=== PATIENT | male | born 1995 | race Caucasian/White ===

== ENCOUNTER 2021-03-15 16:54 | Emergency (ER) | payer SELFPAY ==
[2021-03-15] VITALS (19 sets, daily range): BP systolic 116–151; BP diastolic 59–81; PULSE 55–87; RESP 10–28; TEMP 36.7; O2SAT 95–98
--- NOTE | 2021-03-15 16:45 | RT.EKG_ITS ---
APPROVED REPORT Exam: Resting ECG Reason for Exam: chest pain Patient Location: E HR:69 bpm ECG Measurements Heart Rate 69 AXIS ND [id number] P [id number] QRSd 106 QRS 95 QT 389 T 10 QTc 418 Conclusion Atrial fibrillation...V-rate 59- 61, irreg A-activity Ventricular bigeminy...bigeminy string>4 w/ V complexes. Sinus. PVCs. No STEMI. I have reviewed and interpreted ECG and agree with software generated interpretation.
--- NOTE | 2021-03-15 17:15 | DI.RAD_ITS ---
Exam(s) XR CHEST 2V PA LATERAL EXAM: XR CHEST 2V PA LATERAL CLINICAL HISTORY: chest pain, arrythmia TECHNIQUE: 2D digital imaging was performed. COMPARISON: No exams were available for comparison FINDINGS: MEDIASTINUM: Normal. HEART: Normal. PULMONARY VASCULATURE: Normal. LUNGS: Clear. PLEURAL SPACE: No pleural effusion or pneumothorax. BONE:Unremarkable for age. IMPRESSION: No acute abnormality. DATA REPOSITORY: RADIATION DOSE DELIVERED:
--- NOTE | 2021-03-15 17:27 | ED.GENADUL_ITS ---
Discharge Plan Disposition Patient Disposition: HOME Condition: Stable Discharge Details Clinical Impression: Frequent PVCs, Chest pain Primary Care Provider: Unknown,Unknown ED Provider: Ai Alcantara Home Meds and New Rx's Prescriptions: No Action No Known Home Meds RF: 0 Discharge Instructions Instructions: Chest Pain (ED), Heart Palpitations (ED) Additional Instructions: Wear the Holter monitor for the next 48 hours as directed. Consider taking a chewable baby aspirin daily. At this time the cardiac work-up is largely within normal limits. However it is concerning because you are having some frequent premature ventricular contractions. Potassium was slightly low eat some bananas over the next few days or take a potassium supplement. We will place you on a list for follow-up with cardiology. You may call them to make an appointment as well. I will also order you an outpatient stress test. Follow up with primary care provider in 3-5 days. Return to ED sooner if any worsening chest pain, near fainting spells, or concerns. Increase oral fluids. Referrals: Isis Rain MD [ [facility] STAFF PHYSICIAN] - 1 week (Palpitations, chest pain,Holter monitor) Medical Decision Making EKG was reviewed by She Lara DO ER attending, frequent PVCs no old for review please see your official report review. 26-year-old male presents to the ER chief complaint of palpitations, sharp chest pains which are intermittent and near syncope. Patient reports that this has happened to him within the last 6 months, he has never been evaluated by cardiology. Reports this morning he began with substernal chest pain which progressively got worse describes it as sharp and gurgling he reports that it only lasts for split-second and goes away. He denies any chest pain on my initial exam. Initial rhythm is occasional bigeminy with frequent PVCs at a rate of 81-79. Blood pressure is within normal limits. He also incidentally has a urticarial raised red rash to his back which he reports is pruritic. He reports that that has been there for years. He denies smoking, he report family history of heart disease on his grandfather's side. No swelling in his lower extremities denies any intolerance to exercise. Denies any nausea vomiting diarrhea trouble urinating or any other associated symptoms. Cardiac work-up ordered including serial troponins, chest x-ray, Lyme and tick panel due to rash. 324 mg chewable baby aspirin given. Initial troponin within normal limit, CBC shows no leukocytosis, potassium is 3.4 glucose 140 bilirubin 1.5, 1827: TSH added on, urine drug screen added on, Holter monitor ordered. Chest x-ray is pending at this time. Urine drug screen negative, TSH within normal limits, Patient placed on care management list for cardiology follow-up, PCP establishment. Instructed on strict return instructions, verbalized understanding. HPI General Mode of arrival: ambulatory . Date/Time Provider Initiated Documentation: 03/15/21 17:24 . Limitations to Documentation: no limitations . Information obtained by: patient, RN notes reviewed and old records reviewed . HPI Narrative: 26-year-old male presents to the ER chief complaint of palpitations, sharp chest pains which are intermittent and near syncope. Patient reports that this has happened to him within the last 6 months, he has never been evaluated by cardiology. Reports this morning he began with substernal chest pain which progressively got worse describes it as sharp and gurgling he reports that it only lasts for split-second and goes away. He denies any chest pain on my initial exam. Initial rhythm is occasional bigeminy with frequent PVCs at a rate of 81-79. Blood pressure is within normal limits. He also incidentally has a urticarial raised red rash to his back which he reports is pruritic. He reports that that has been there for years. He denies smoking, he report family history of heart disease on his grandfather's side. No swelling in his lower extremities denies any intolerance to exercise. Denies any nausea vomiting diarrhea trouble urinating or any other associated symptoms. Related Data Home Medications Medication Instructions Recorded Confirmed Unknown [No Known Home Meds] 03/15/21 03/15/21 Allergies Allergy/AdvReac Type Severity Reaction Status Date / Time No Known Allergies Allergy Unverified 03/15/21 17:04 General Stated Complaint: Chest Pain URIEL: 2 Review of Systems All systems reviewed & are unremarkable except as noted in HPI and below Constitutional Constitutional: Reports as per HPI Cardiovascular Cardiovascular: Reports as per HPI, Denies acrocyanosis, Reports chest pain, Denies chest pain with activity, Denies edema, Reports irregular heart rhythm, Denies leg edema and Denies radiating jaw, neck or arm pain Gastrointestinal Gastrointestinal: Denies abdominal pain, Denies diarrhea, Denies nausea and Denies vomiting Genitourinary Genitourinary: Denies difficulty urinating [facility] Social History Smoking/Tobacco Use Status: Never Smoking risk assessment performed?: Yes Alcohol Intake: current Alcohol Intake frequency: holidays/special occasions only Drug use: Never Substance use type: does not use Do you feel safe at home: Yes Do you feel safe in your relationship?: Yes Exam Narrative Exam Narrative: Constitutional: Alert and oriented x3. Appears stated age. Normal body habitus. Head: Normocephalic, no trauma. Eyes: Pupils PERRLA, Red reflex noted, EOM's intact. Eyelids symmetrical without lesions, discharge, or swelling. ENT: Bilateral TM's WNL, External ear normal to inspection, no mastoid TTP, swelling, or erythema, Nasal turbinates WNL, no nasal discharge. Normal dentition, Posterior pharynx WNL, no exudate. Chest: Frequent PVCs, Irregular, Normal S1, S2, distal pulses intact. No bilateral lower extremity edema. Resp: Lungs clear to auscultation bilaterally, no wheezes, rales, or rhonchi. Musculoskeletal: Normal gait, 5/5 strength to all four extremities. Skin: Large patch urticarial red raised rash to upper back reports has been there years, Capillary refill less than 2 sec. Neurologic: Cranial nerves II-XII intact. Alert and oriented x 3. Hematologic/Lymphatic: No ecchymosis, no lymphadenopathy. Course Vital Signs Vital signs: Vital Signs Temperature 36.7 C 03/15/21 17:01 Pulse 70 03/15/21 17:01 Respiratory Rate 18 03/15/21 17:01 Blood Pressure 151/76 H 03/15/21 17:01 Pulse Oximetry 97 03/15/21 17:01 Temperature 36.7 C 03/15/21 17:01 Temperature Source Skin 03/15/21 17:01 Pulse 70 03/15/21 17:01 Respiratory Rate 18 03/15/21 17:01 Respiratory Effort Non-Labored 03/15/21 17:05 Respiratory Depth Normal 03/15/21 17:05 Respiratory Pattern Normal 03/15/21 17:05 Blood Pressure 151/76 H 03/15/21 17:01 Blood Pressure Position Supine 03/15/21 17:01 Pulse Oximetry 97 03/15/21 17:01 Oxygen Delivery Method Room Air 03/15/21 17:01 Oxygen Flow Rate 0 03/15/21 17:01 Pain Level 6 03/15/21 17:05
[2021-03-15 17:35] LABS: Abs Immature Grans 0.01 10^3/uL (0.0-0.06); Absolute Basophil Count 0.05 10^3/uL (0.0-0.2); Absolute Eosinophil Count 0.15 10^3/uL (0.0-0.7); Absolute Lymphocyte Count 2.61 10^3/uL (1.2-3.4); Absolute Monocyte Count 0.41 10^3/uL (0.1-0.8); Absolute Neutrophil Count 4.81 10^3/uL (1.2-6.7); Basophils % 0.6; Eosinophils % 1.9; HCT 46.4 % (40.0-50.0); HGB 15.9 g/dL (13.5-17.5); Immature Grans % 0.1; Lymphocytes % 32.5; MCH 28.6 pg (27.0-33.0); MCHC 34.3 % (32.0-36.0); MCV 83.5 fL (80-95); MPV 11.5 fL (8.0-11.0); Monocytes % 5.1; Neutrophils % 59.8; Nucleated RBC 0 %; Platelet Count 210 10^3/uL (130-400); RBC 5.56 10^6/uL (4.36-5.78); RDW 12.4 % (11.8-14.1); RDW-SD 37.5 fL; WBC 8.04 10^3/uL (4.4-10.8)
[2021-03-15 17:51] LABS: ALT 20 U/L (16-63); AST 21 U/L (15-37); Albumin 4.7 g/dL (3.4-5.0); Alkaline Phosphatase 111 U/L (46-116); Anion Gap 8.7 mmol/L (3-11); BUN 14 mg/dL (7-18); Bilirubin, Total 1.5 mg/dL (0.2-1.0); CO2 29.3 mmol/L (21.0-32.0); CREATININE 1.3 mg/dL (0.70-1.30); Calcium 9.2 mg/dL (8.5-10.1); Chloride 101 mmol/L (98-107); Glucose 140 mg/dL (74-106); Magnesium 2.1 mg/dL (1.8-2.4); Potassium 3.4 mmol/L (3.5-5.1); Sodium 139 mmol/L (136-145)
[2021-03-15 17:57] LABS: Troponin I < 0.05 ng/mL (<0.06)
--- NOTE | 2021-03-15 18:22 | NUR.NOTE ---
Nursing Note: REFERAL FAXED TO CARDIOLOGY FOR PVC FOLLOW UP 03/15/21
[2021-03-15 18:49] LABS: TSH 2.13 uIU/mL (0.36-3.74)
--- NOTE | 2021-03-15 18:49 | DI.VRAD_ITS ---
PROCEDURE INFORMATION: Exam: XR Chest Exam date and time: 03/15/2021 5:27 PM Age: 26 years old Clinical indication: Other: Chestpain, arrythmia TECHNIQUE: Imaging protocol: XR of the chest. Views: 2 views. COMPARISON: No relevant prior studies available. FINDINGS: Lungs: No mass. No consolidation. Pleural spaces: Unremarkable. No pleural effusion. No pneumothorax. Heart/Mediastinum: Unremarkable cardiomediastinal silhouette. No cardiomegaly. Bones/joints: Unremarkable. IMPRESSION: No evidence for acute cardiopulmonary disease. Dictated and Authenticated by: Pop Bloom MD. Ordering:RADHA Cloud MD
[2021-03-15 20:00] LABS: *AMPHETAMINES SCREEN URINE Negative (Negative); *BARBITURATES SCREEN URINE Negative (Negative); *BENZODIAZEPINES SCREEN URINE Negative (Negative); Cannabinoids THC Negative (Negative); Cocaine Screen,Urine Negative (Negative); METHADONE URINE SCREEN Negative (Negative); OPIATES URINE SCREEN Negative (Negative)
[2021-03-15 20:03] LABS: Tricyclic Antidepressants Negative (Negative)
--- NOTE | 2021-03-15 20:15 | RT.EKG_ITS ---
APPROVED REPORT Exam: Resting ECG Reason for Exam: chest pain Patient Location: E HR:87 bpm ECG Measurements Heart Rate 87 AXIS NC 155 P 57 QRSd 100 QRS 95 QT 385 T 4 QTc 463 Conclusion Sinus rhythm...normal P axis, V-rate 60- 99 Ventricular trigeminy...trigeminy string>6 w/ V complexes Borderline ST elevation, lateral leads...ST >0.06mV, I aVL V5 V6 I have reviewed and interpreted ECG and agree with software generated interpretation. There are no significant changes compared to prior EKG performed on 03/15/2021 at 17:04.
--- NOTE | 2021-03-15 20:20 | NUR.NOTE ---
Referral faxed to [facility] for chest pain, also a copy to Care Management to establish pcp clint for chest pain.Nursing Note:
[2021-03-15 20:44] LABS: Troponin I < 0.05 ng/mL (<0.06)
--- NOTE | 2021-03-16 12:48 | NUR.NOTE ---
Nursing Note: Patient called requesting a work note. CHRIS Nino did a handwritten work release. A copy has been put in the chart. Xiomy Pickett
[2021-03-17 20:22] LABS: Anaplasma phagocytophilum Negative (Negative); B. miyamotoi PCR Negative (Negative); Babesia divergens/MO-1 Negative (Negative); Babesia duncani Negative (Negative); Babesia microti Negative (Negative); Ehrlichia chaffeensis Negative (Negative); Ehrlichia ewingii/canis Negative (Negative); Ehrlichia muris eauclairensis Negative (Negative)
[2021-03-19 12:16] LABS: Lyme Ab w Rflx to Lyme Confirm Negative (Negative)
== END 2021-03-15 20:52 | disposition home or self-care (01) ==
PROVIDERS: Emergency Provider Registered Nurse Emergency
DX: I49.3 Ventricular premature depolarization (principal); R07.89 Other chest pain; R21 Rash and other nonspecific skin eruption
CPT/HCPCS: 36415; 80053; 80307; 87798; 93005; 99284; 71046; 83735; 84443; 84484; 85025; 86618; 93010; 93225; 99283

== ENCOUNTER 2021-03-15 18:37 | Outpatient (RCR) | payer SELFPAY ==
--- NOTE | 2021-03-15 18:45 | HOLTER_ITS ---
APPROVED REPORT Conclusion This is a 48-hour Holter monitor ordered for palpitations Predominant rhythm was sinus with an average heart rate of 77. Minimum was 50, maximum 160 There were very rare atrial premature beats. There was no supraventricular tachycardia, no atrial fi brillation, no pauses greater than 3 seconds, no high-grade AV block There were frequent ventricular ectopic beats, comprising 12% of total. Bigeminy and trigeminy were seen. Some PVCs were interpolated. There were rare ventricular couplets triplets and two runs of nonsustained ventricular tachycardia, t he longest of which was 5 beats in duration No patient symptoms were reported
== END 2021-04-01 23:59 | disposition home or self-care (01) ==
LOC: RT 18:37
PROVIDERS: Visit Provider Registered Nurse Emergency
DX: R00.2 Palpitations (principal)
CPT/HCPCS: 93225; 93226

== ENCOUNTER 2021-06-12 10:43 | Emergency (ER) | payer SELFPAY ==
--- NOTE | 2021-06-12 10:45 | RT.EKG_ITS ---
APPROVED REPORT Exam: Resting ECG Reason for Exam: sob Patient Location: E HR:73 bpm ECG Measurements Heart Rate 73 AXIS UT 144 P 47 QRSd 94 QRS 12 QT 387 T 4 QTc 427 Conclusion Sinus rhythm...normal P axis, V-rate 60- 99 Physician: Rate 73, intervals normal, sinus rhythm, no significant ST elevation or depression. No T wave inversions. No evidence of STEMI
[2021-06-12 10:59] VITALS: PULSE 58; RESP 22; TEMP 36.7; O2SAT 100
--- NOTE | 2021-06-12 11:00 | DI.CT_ITS ---
Exam(s) CT CHEST PE CTA EXAM: CT CHEST PE CTA CLINICAL HISTORY: covid +, syncope, CP, cant breathe. TECHNIQUE: Imaging Protocol: Axial CT angiography was performed with multi-slice acquisition and mu lti-planar and/or 3D reconstructions. CONTRAST MATERIAL: Intravenous: Omnipaque 350 Contrast volume:structured data in ml COMPARISON: CT CT BRAIN NECK CTA from 06/12/2021 FINDINGS: CT angiography of the chest was performed with intravenous infusion of 100 cc of Omnipaque 350. There is severe breathing artifact which prevents evaluation of lobar and more peripheral pulmonary v essels. There is no gross pulmonary embolus in the main pulmonary artery or right or left pulmonary arteries. The lungs are grossly clear but evaluation of the lungs is severely limited due to breathing motion p eriod. No pleural effusion. Tracheobronchial tree appears intact. Thoracic aorta is of normal diameter, no thoracic aortic aneurysm or dissection, major branch vessels appear intact. No mediastinal or hilar adenopathy. Images obtained through the upper abdomen show unremarkable appearance of the visualized portions of the liver, spleen, pancreas, adrenals, and kidneys. IMPRESSION: Very limited study, no gross pulmonary embolus in main pulmonary artery or right or left pulmonary ar teries.. RADIATION DOSE DELIVERED: 571.07mGy.cm Total DLP 571.07mGy.cm Total DLP 14.55mGy CTDIvol DATA REPOSITORY: All CT scans at this facility are submitted to the National Radiology Data Registry (NRDR) Dose Index Registry (DIR) with the [employer] ([employer]). RADIATION OPTIMIZATION: All CT scans at this facility use at least one of these dose optimization te chniques: automated exposure control; mA and/or kV adjustment per patient size (includes targeted exa ms where dose is matched to clinical indication); or iterative reconstruction.
--- NOTE | 2021-06-12 11:13 | ED.GENADUL_ITS ---
Discharge Plan Disposition Patient Disposition: HOME Condition: Good Discharge Details Clinical Impression: Hypophosphatemia, COVID-19 Primary Care Provider: Unknown,Unknown ED Provider: Wojciech Ladd Home Meds and New Rx's Prescriptions: New Phosphorous 250 mg tablet 1 tab PO BID Qty: 7 RF: 0 Discharge Instructions Instructions: Hypophosphatemia (ED), COVID-19 (Coronavirus Disease 2019) (ED) Additional Instructions: At this time your chest CAT scan and the CT scan of your head shows no evidence of significant abnormality. Your COVID test is positive, and your laboratory work-up is reassuring. Your phosphate levels are low. Your magnesium level is slightly low. We have replaced your magnesium, but you will still require phosphate supplementation for the next few days. The prescription has been given to you, please fill this and take this as directed. Please contact your primary provider to have your phosphate levels rechecked in the next 36 to 48 hours. Please use the pulse oximeter that we have given you, monitor your oxygen levels. If your oxygen dips below 90 for greater then 5 minutes on more than 1 finger please return for reassessment. If you notice any worsening of your symptoms, or any new symptoms such as vomiting, diarrhea, fever, chills, shortness of breath, chest pain, numbness, weakness, or fainting , please return immediately to the emergency department for reevaluation. Please follow up with your primary care provider as soon as possible for reassessment and reevaluation. As always, it was a pleasure participating in your medical care today. Discharge Data Discharge Date/Time-TO BE ENTERED AT DEPARTURE: 06/12/21 15:57 Medical Decision Making 26-year-old male with no significant past medical history except for frequent PVCs in the past presents today for evaluation of feeling like he cannot breathe, shortness of breath and fatigue. Patient tested positive for COVID 4 days ago on Friday. He has not began the day before on Friday. Admits to a mild cold, cough, but then for the last 24 to 48 hours he felt like he could not breathe at all. He feels that he is dying for oxygen, and unable to get a breath. He admits to chest achiness and pain in the center of his chest. He denies any hemoptysis. He denies any history of blood clots. Patient also admits to notable lightheadedness that has been occurring for the last day and a half. He is states that he feels like he is about to pass out all the time. He denies any syncope or trauma to his head though. He denies any vomiting or diarrhea. No history of asthma. He does not smoke. 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 No other complaints at this time. No other modifying factors Physical exam is notably unremarkable. Vital signs demonstrate normal heart rate normal, normal oxygenation. On exam the patient looks very concerned, but does not show any cyanosis or other signs of significant distress. Differential includes COVID-pneumonia/pneumonitis, myocarditis, PE. Additionally with the patient's syncopal episodes/near syncopal episodes they do worry about an acute intracranial etiology. We will evaluate for these concerning components, monitor closely and reassess 3:[address] scans are both returned negative for acute process. No significant abnormality. Laboratory work-up is negative aside for evidence of hypophosphatemia. Magnesium is also slightly low. Troponin normal, EKG benign aside for the PVCs. 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 Thyroid function normal. proBNP normal suggest no signs of heart strain. COVID test is positive patient states he feels much better on reassessment would like to go home.. We did give supplemental magnesium and he tolerated this well. We gave oral phosphate, and did give the patient the option of admission, but he is declined and would rather follow-up outpatient. Will give prescription for continued phosphate supplementation at home. We gave pulse oximeter for continued monitoring at home if his is worsened. Recommend close follow-up with his PCP for reevaluation of phosphate levels on an outpatient basis. Discussed concerning red flags for which to return. Patient stable for discharge. No evidence of respiratory distress at this point, no other significant abnormality. I have extensively reviewed the treatment plan and discharge instructions with the patient. I have addressed all patient concerns at this time. The patient was made aware of what symptoms to monitor for that would warrant a return to the emergency department. Discussed the plan with the patient, they demonstrate verbal understanding and agreement with our assessment and plan at this time. The documentation in this chart was dictated using [employer] dictation software. Please excuse any dictation errors. EKG 10: 59 Rate 73, intervals normal, sinus rhythm, no significant ST elevation or depression. No T wave inversions. No evidence of STEMI FINDINGS: CT angiography of the cervical cranial region was performed according to the usual protocol with intravenous infusion of 100 cc of Omnipaque 350.. Initial noncontrast scanning of the head is unremarkable. Visualized lung apices are clear. Visualized portions of thoracic aorta and pulmonary arterial circulation are unremarkable. There is no evidence of a cervical mass or adenopathy. The tracheal laryngeal structures appear intact. The common, internal, and external carotid arteries are within normal limits in the cervical region with no evidence of aneurysm, stenosis, or dissection. The vertebral arteries are unremarkable in appearance in the cervical region with no evidence of aneurysm, stenosis, or dissection. Intracranial portions of the internal carotid arteries appear normal with no evidence of aneurysm, stenosis, or dissection. Intracranial vertebral arteries and basilar artery appear normal with no evidence of aneurysm, stenosis or dissection. No aneurysm identified in the region of the [id number]. The anterior, middle, and posterior cerebral arteries and major branches appear intact with no evidence of aneurysm, stenosis, or dissection. The planned 5 minutes delayed images were not obtained, however the patient returned within approximately 30 minutes for delayed whole brain scanning and there is no evidence of a mass lesion or enhancing lesion on these images period.. IMPRESSION: Negative CT angiography of the cervical cranial region. FINDINGS: CT angiography of the chest was performed with intravenous infusion of 100 cc of Omnipaque 350. There is severe breathing artifact which prevents evaluation of lobar and more peripheral pulmonary vessels. There is no gross pulmonary embolus in the main pulmonary artery or right or left pulmonary arteries. The lungs are grossly clear but evaluation of the lungs is severely limited due to breathing motion period. No pleural effusion. Tracheobronchial tree appears intact. Thoracic aorta is of normal diameter, no thoracic aortic aneurysm or dissection, major branch vessels appear intact. No mediastinal or hilar adenopathy. Images obtained through the upper abdomen show unremarkable appearance of the visualized portions of the liver, spleen, pancreas, adrenals, and kidneys. IMPRESSION: Very limited study, no gross pulmonary embolus in main pulmonary artery or right or left pulmonary arteries.. HPI General Date/Time Provider Initiated Documentation: 06/12/21 10:44 . HPI Narrative: 26-year-old male with no significant past medical history except for frequent PVCs in the past presents today for evaluation of feeling like he cannot breathe, shortness of breath and fatigue. Patient tested positive for COVID 4 days ago on Friday. He has not began the day before on Friday. Admits to a mild cold, cough, but then for the last 24 to 48 hours he felt like he could not breathe at all. He feels that he is dying for oxygen, and unable to get a breath. He admits to chest achiness and pain in the center of his chest. He denies any hemoptysis. He denies any history of blood clots. Patient also admits to notable lightheadedness that has been occurring for the last day and a half. He is states that he feels like he is about to pass out all the time. He denies any syncope or trauma to his head though. He denies any vomiting or diarrhea. No history of asthma. He does not smoke. 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 No other complaints at this time. No other modifying factors Related Data Home Medications Medication Instructions Recorded Confirmed sod phos di, mono-K phos mono 1 tab PO BID #7 tab 06/12/21 [Phosphorous] Previous Rx's Medication Instructions Recorded sod phos di, mono-K phos mono 1 tab PO BID #7 tab 06/12/21 [Phosphorous] Allergies Allergy/AdvReac Type Severity Reaction Status Date / Time No Known Allergies Allergy Unverified 06/12/21 11:02 General Stated Complaint: RespSymp URIEL: 2 Review of Systems All systems reviewed & are unremarkable except as noted in HPI and below PFSH All Active Problems (Updated 06/12/21 @ 15:38 by Wojciech Ladd DO) Hypophosphatemia (Acute) COVID-19 (Acute) Chronic diarrhea (Acute) Lightheadedness (Acute) Frequent PVCs (Acute) Chest pain (Acute) Social History Smoking/Tobacco Use Status: Never Smoking risk assessment performed?: Yes Alcohol Intake: current Alcohol Intake frequency: holidays/special occasions only Drug use: Never Substance use type: does not use Do you feel safe at home: Yes Do you feel safe in your relationship?: Yes Exam Narrative Exam Narrative: 1.Const: Well-nourished, Well-developed, appearing stated age 2.Eyes: PERRL, no conjunctival injection, and symmetrical lids. 3.ENT: Atraumatic external nose and ears. Moist MM. Neck: Symmetric, trachea midline, No thyromegaly. 4.CVS: +S1/S2, No murmurs or gallops. Peripheral pulses 2+ and equal in all extremities. Brisk capillary refill in all extremities. 5.RESP: Unlabored respiratory effort. Clear to auscultation bilaterally. No wheezes rales or rhonchi 6.GI: Soft, Nontender/Nondistended, No hepatosplenomegaly. No guarding or rebound. 7.MSK: Normocephalic/Atraumatic, Extremities w/o deformity or ttp No cyanosis or clubbing, Normal movement of all extremities 8.Skin: Warm, Dry. No rashes or lesions. 9.Neuro: size marker II-XII grossly intact. Sensation grossly intact, no focal neurologic deficits. 10.Psych: (AAO) x3. Appropriate mood and affect Course Vital Signs Vital signs: Vital Signs Temperature 36.7 C 06/12/21 10:59 Pulse 58 L 06/12/21 10:59 Respiratory Rate 22 06/12/21 10:59 Pulse Oximetry 100 06/12/21 10:59 Temperature 36.7 C 06/12/21 10:59 Temperature Source Oral 06/12/21 10:59 Pulse 58 L 06/12/21 10:59 Respiratory Rate 22 06/12/21 10:59 Respiratory Effort Non-Labored 06/12/21 11:04 Respiratory Depth Normal 06/12/21 11:04 Pulse Oximetry 100 06/12/21 10:59 Oxygen Delivery Method Room Air 06/12/21 10:59 Oxygen Flow Rate 0 06/12/21 10:59 Pain Level 9 06/12/21 10:59 PAWSS Have you Been Recently Intoxicated or Drunk Within the Last 30 days?: No Have you Ever Experienced Previous Episodes of Alcohol Withdrawal?: No Have you ever Experienced Withdrawal Seizures?: No Have you ever Experienced Delirium Tremens(DT)s?: No Have you ever undergone Alcohol Rehabilitation Treatment (i.e, inpt ot outpatient treatment programs)?: No Have you ever Experienced Blackouts?: No Have you ever Combined Alcohol with other Downers within the last 90 days?: No Have you ever Combined Alcohol with any other Substance of Abuse during the last 90 days?: No Positive Blood Alcohol level on Presentation? [PCS.BAL]: No Evidence of Increased Autonomic Activity (i.e. HR>120, tremor, sweating, agitation, nausea)?: No Result: 0
[2021-06-12 11:28] LABS: Abs Immature Grans 0.01 10^3/uL (0.0-0.06); Absolute Basophil Count 0.02 10^3/uL (0.0-0.2); Absolute Eosinophil Count 0.04 10^3/uL (0.0-0.7); Absolute Lymphocyte Count 1.23 10^3/uL (1.2-3.4); Absolute Monocyte Count 0.25 10^3/uL (0.1-0.8); Absolute Neutrophil Count 1.51 10^3/uL (1.2-6.7); BE (Venous) 3 mmol/L (-2-3); Basophils % 0.7; Eosinophils % 1.3; HCO3 (Venous) 27 mmol/L (23-28); HCT 44.9 % (40.0-50.0); HGB 15.2 g/dL (13.5-17.5); Immature Grans % 0.3; Lymphocytes % 40.2; MCH 28.5 pg (27.0-33.0); MCHC 33.9 % (32.0-36.0); MCV 84.1 fL (80-95); MPV 11.3 fL (8.0-11.0); Monocytes % 8.2; Neutrophils % 49.3; Nucleated RBC 0 %; O2 Sat (Venous) 63 %; Platelet Count 163 10^3/uL (130-400); RBC 5.34 10^6/uL (4.36-5.78); RDW 12.6 % (11.8-14.1); RDW-SD 38.8 fL; TCO2 (Venous) 24 mmol/L (24-29); WBC 3.06 10^3/uL (4.4-10.8); pCO2 (Venous) 42 mmHg (41-51); pH (Venous) 7.42 (7.31-7.41); pO2 (Venous) 31 mmHg
[2021-06-12 11:31] LABS: Source Nasal/Nares
[2021-06-12 11:46] LABS: PTT Activated 26.1 sec (21.0-27.5); Prothrombin Time 10.5 sec (9.3-11.0)
[2021-06-12 11:55] LABS: ALT 30 U/L (16-63); AST 23 U/L (15-37); Albumin 4.1 g/dL (3.4-5.0); Alkaline Phosphatase 86 U/L (46-116); Anion Gap 7.9 mmol/L (3-11); BUN 14 mg/dL (7-18); Bilirubin, Total 0.7 mg/dL (0.2-1.0); CO2 28.1 mmol/L (21.0-32.0); CREATININE 1.1 mg/dL (0.70-1.30); Chloride 104 mmol/L (98-107); Glucose 151 mg/dL (74-106); Magnesium 1.6 mg/dL (1.8-2.4); NT-proBNP 15 pg/mL (<300); PHOSPHORUS < 2.0 mg/dL (2.6-4.7); Potassium 3.7 mmol/L (3.5-5.1); Sodium 140 mmol/L (136-145); TSH (W/Ref FT4) 1.77 uIU/mL (0.36-3.74); Total Protein 7.4 g/dL (6.4-8.2); Troponin I < 50 ng/L (<or=60)
[2021-06-12 12:11] LABS: COVID-19 PCR POSITIVE (Negative)
--- NOTE | 2021-06-12 12:13 | NUR.NOTE ---
Nursing Note: Pt to CT via stretcher w/tech, no new complaints, NAD at this time, + Covid per lab, PUI precautions maintained.
[2021-06-12] MEDS: Omnipaque 350 MG/ML 100 ML BTL IJ (12:18)
[2021-06-12] MEDS: Omnipaque 350 MG/ML 50 ML BTL IJ (12:19)
--- NOTE | 2021-06-12 12:27 | NUR.NOTE ---
Nursing Note: Pt return from CT, no new complaints, NAD noted, continue to monitor.
--- NOTE | 2021-06-12 12:55 | DI.CT_ITS ---
Exam(s) CT HEAD WO CT BRAIN NECK CTA EXAM: CT BRAIN NECK CTA CLINICAL HISTORY: covid +, repeated syncope, lightheaded. TECHNIQUE: Imaging Protocol: Axial CT angiography was performed with multi-slice acquisition and mu lti-planar and/or 3D reconstructions. CONTRAST MATERIAL: Intravenous: Omnipaque 350 Contrast volume:structured data in ml COMPARISON: No exams were available for comparison FINDINGS: CT angiography of the cervical cranial region was performed according to the usual protocol with intr avenous infusion of 100 cc of Omnipaque 350.. Initial noncontrast scanning of the head is unremarkable. Visualized lung apices are clear. Visualized portions of thoracic aorta and pulmonary arterial circul ation are unremarkable. There is no evidence of a cervical mass or adenopathy. The tracheal laryngeal structures appear intact. The common, internal, and external carotid arteries are within normal limits in the cervical region w ith no evidence of aneurysm, stenosis, or dissection. The vertebral arteries are unremarkable in appearance in the cervical region with no evidence of aneu rysm, stenosis, or dissection. Intracranial portions of the internal carotid arteries appear normal with no evidence of aneurysm, st enosis, or dissection. Intracranial vertebral arteries and basilar artery appear normal with no evidence of aneurysm, stenos is or dissection. No aneurysm identified in the region of the [id number]. The anterior, middle, and posterior cer ebral arteries and major branches appear intact with no evidence of aneurysm, stenosis, or dissection . The planned 5 minutes delayed images were not obtained, however the patient returned within approxima tely 30 minutes for delayed whole brain scanning and there is no evidence of a mass lesion or enhanci ng lesion on these images period.. IMPRESSION: Negative CT angiography of the cervical cranial region. RADIATION DOSE DELIVERED: 1,242.15mGy.cmTotal DLP 1,242.15mGy.cm Total DLP 6.86mGy CTDIvol DATA REPOSITORY: All CT scans at this facility are submitted to the National Radiology Data Registry (NRDR) Dose Index Registry (DIR) with the [employer] ([employer]). RADIATION OPTIMIZATION: All CT scans at this facility use at least one of these dose optimization te chniques: automated exposure control; mA and/or kV adjustment per patient size (includes targeted exa ms where dose is matched to clinical indication); or iterative reconstruction.
[2021-06-12 13:15] VITALS: BP 135/76; PULSE 61; RESP 20; TEMP 36.9; O2SAT 96
[2021-06-12 15:33] VITALS: BP 135/76; PULSE 59; RESP 18; TEMP 36.6; O2SAT 96
[2021-06-12] MEDS: MAGNESIUM SULFATE 1 GM/100 ML BAG IVPB (15:36)
--- NOTE | 2021-06-12 15:37 | NUR.NOTE ---
Nursing Note:Pt medicated as ordered with IV Magnesium & PO phosphorus. Pulse oximeter teaching done with pt to monitor at home after discharge, pt verbalized understanding of pulse oximeter use.
[2021-06-12 15:50] VITALS: BP 135/76; PULSE 59; RESP 16; O2SAT 95
== END 2021-06-12 15:57 | disposition home or self-care (01) ==
PROVIDERS: Emergency Provider Student in an Organized Health Care Education/Training Program
DX: U07.1 COVID-19 (principal); E83.39 Other disorders of phosphorus metabolism; E83.42 Hypomagnesemia; R42 Dizziness and giddiness; R55 Syncope and collapse; R06.02 Shortness of breath; Z86.79 Personal history of other diseases of the circulatory system
CPT/HCPCS: 36415; 70496; 70498; 71275; 80053; 82805; 87635; 93005; 99285; 70450; 83605; 83735; 83880; 84100; 84443; 84484; 85025; 85610; 85730; 93010; 99284; J3475; J3490; Q9967

== ENCOUNTER 2021-08-06 07:38 | Emergency (ER) | payer SELFPAY ==
[2021-08-06] VITALS (58 sets, daily range): BP systolic 87–149; BP diastolic 41–104; PULSE 74–118; RESP 10–22; TEMP 36–36.6; O2SAT 93–100
--- NOTE | 2021-08-06 07:30 | RT.EKG_ITS ---
APPROVED REPORT Exam: Resting ECG Reason for Exam: dizzy Patient Location: E HR:99 bpm ECG Measurements Heart Rate 99 AXIS VA 145 P 53 QRSd 86 QRS 108 QT 312 T -35 QTc 401 Conclusion Sinus rhythm...normal P axis, V-rate 60- 99 Probable left atrial enlargement...P >50mS, <-0.10mV V1 Nonspecific T abnormalities, lateral leads...T <-0.10mV, I aVL V5 V6 sinus rhythm at 99, normal axis, T wave changes V4 through V6 not seen on prior, no STEMI, nondiagnos tic EKG
--- NOTE | 2021-08-06 08:18 | W.ED.GENAD ---
Discharge Plan Disposition Patient Disposition: HOME Condition: Improving Discharge Details Clinical Impression: Abdominal pain, vomiting, and diarrhea, Hypophosphatemia Primary Care Provider: Unknown,Unknown ED Provider: Yesenia Atkins Home Meds and New Rx's Prescriptions: New Phosphorous 250 mg tablet 1 tab PO BID Qty: 6 0RF ondansetron 4 mg tablet,disintegrating 4 mg PO BID-TID PRN (Reason: nausea and vomiting) Qty: 9 0RF Discontinued Phosphorous 250 mg tablet 1 tab PO BID Qty: 7 0RF Discharge Instructions Instructions: Ondansetron (By mouth), Acute Nausea and Vomiting (ED), Abdominal Pain (ED), Hypophosphatemia (ED) Additional Instructions: Please return immediately to the emergency department if you develop any new or worsening symptoms, if your condition does not improve as expected, or if you become otherwise concerned. It is extremely important that you call soon as possible to make an appointment to be seen in follow-up for this visit by your primary care doctor. Discharge Data Discharge Date/Time-TO BE ENTERED AT DEPARTURE: 08/06/21 15:46 Medical Decision Making Bunny Dougherty is a 26-year-old man without reported history of major medical problems presenting to emergency department with vomiting and diarrhea. Patient reports that he has been feeling well up until yesterday afternoon. He reports that approximately 1 PM he had an episode of diarrhea, which is not typical for him. Patient reports that he felt fine thereafter and ate dinner as usual. Patient reports that at approximately 10 PM last night he woke up with vomiting, and then developed subsequent diarrhea. Patient reports that after vomiting he developed bilateral lower abdominal pain that has been ongoing since onset last night. He reports that he typically is constipated. He reports no appetite changes prior to onset of symptoms at 10 PM last night. He denies fever, any other pain, cough, shortness of breath, bloody or black emesis, bloody or black diarrhea, numbness, weakness, dysuria, testicular pain He reports chronic unchanged rash to his right arm and back. Has not urinated since onset of symptoms at 10:00 last night. Patient reports that he had testicular torsion in the past and had right orchiectomy at that time. Exam reveals patient uncomfortable but well and nontoxic appearing, tachycardic, diffuse tenderness to palpation across the abdomen worse bilateral lower quadrant with some focal tenderness to palpation left lower quadrant/inguinal area. Benign genital exam. EKG obtained for tachycardia, shows T wave inversions V4 through V6 of unknown significance, patient without cardiac risk factors, no chest pain/shortness of breath/other symptoms concerning for acute coronary syndrome or other cardiac etiology pain at this time. Will send troponin, however doubt myocarditis or other acute emergent cardiac pathology at this time. If initial work-up negative plan for repeat EKG prior to discharge. Concern for colitis, UTI, gastroenteritis, dehydration, metabolic/lyte derangement, other. Plan for IV placement, IV fluid hydration, screening labs, IV pain medication, CT abdomen/pelvis. Exam/history at this time is not consistent with pulmonary embolism, sepsis, acute aortic pathology, mesenteric ischemia. Labs reveal hypophosphatemia, patient reports that he was diagnosed with this in the past but did not take phosphorus supplements in the past as they made me feel sick. No symptoms consistent with severe hyperphosphatemia. Plan for p.o. repletion reporting significant continued pain, did have some relief initially with morphine. Will redose. Patient continues to be tachycardic in the 1 teens after [address] shows no acute abnormality per radiology. Patient reports on reassessment the he does have some pain radiating into testicle, out of abundance of caution and without other apparent diagnosis at this time plan for ultrasound scrotum. Patient remains tachycardic at times in the 120s after 2 L of fluid. Ultrasound negative. Will send Covid, plan for third liter of IV fluid. Dr. Watson of surgery was requested to evaluate patient given persistent tachycardia and persistent complaint of severe left lower quadrant pain. Per Dr. Watson no acute surgical process occurring at this time, recommends Levsin for pain. Patient reporting headache at this time as well, plan for Levsin and Tylenol. After third liter of fluid patient heart rate now in the 80s. Patient reports pain has resolved and he feels at baseline, states he feels ready to go home Patient has had no episodes of vomiting, no bowel movements in the emergency department. No acute emergent medical condition identified. Plan for outpatient phosphorus repletion, p.o. Zofran, outpatient follow-up. Patient was placed on care management list for outpatient follow-up this week with PCP for hypophosphatemia. I had a discussion with Patient regarding return to emergency department precautions, home care, and importance of outpatient follow-up. Pt verbalizes understanding of the plan and is amenable. Patient discharged to home with clear plan for outpatient follow-up. All questions were answered. Disposition decision was made weighing the risks and benefits of hospitalization versus outpatient treatment, the risk for further decompensation, and the patient's wishes. Medical Records Medical records reviewed: Yes I reviewed the patient's medical records. Imaging Data Radiologic Study: Attestation: I personally reviewed and interpreted this imaging study as follows: Radiologist's impression: EXAM:? CT ABDOMEN ? PELVIS W CLINICAL HISTORY: ? abd pain.? TECHNIQUE:? Imaging Protocol: Axial computed tomography images with coronal and sagittal reformatted images were created and reviewed CONTRAST MATERIAL:? Intravenous: Omnipaque 350 Contrast volume:100 ml Oral: / no COMPARISON:? CT CT CHEST PE CTA from 06/12/2021 FINDINGS: ABDOMEN: Exam limited by respiratory motion. Lung Bases: Normal where visualized. Liver: Normal density. No measurable mass. Gallbladder and biliary tract: No radiodense calculus or dilation.? Pancreas: Normal density, no abnormal calcifications or inflammatory process. Spleen: Normal. Kidneys: Normal size, contour and axis. No radiodense stones or obstructive uropathy. No masses seen. Adrenal glands: No masses seen. Abdominal Aorta: Abdominal portion non-dilated. PELVIS:? Bladder:? No gross wall thickening. No calculi.No focal mass. Bowel: Evaluation limited due to motion and lack oral contrast.? Normal quantity of stool.? No obstruction or bowel wall thickening. Appendix normal. Peritoneal cavity: No ascites, collection or mesenteric inflammatory response.? No free air.? Bones: Within normal limits for age.? Reproductive organs: Within normal limits. Lymph nodes: Unremarkable.? Impression: Limited evaluation of bowel, particularly the transverse colon due to motion.? No acute abnormality is identified.? No evidence of appendicitis.? EXAM:? US SCROTUM CLINICAL HISTORY: ? lower left abdominal pain.? TECHNIQUE:? Scrotal ultrasound performed using grayscale, color-flow and spectral Doppler analysis. COMPARISON:? CT CT ABDOMEN ? PELVIS W from 08/06/2021 FINDINGS: Right testicle: Status post right orchiectomy.? Cm Left testicle: 5.4 x 2.2 x 3.7 cm Echogenicity: Normal. Contour: Smooth. Mass: None seen. Microlithiasis: None. Hydrocele: None. Variocele: None. Hernia: No peristalsing bowel loop identified. Epididymis: Normal. DOPPLER: Color: Symmetric and uniform, no hyperemia. Duplex: testicular arterial waveforms visualized. IMPRESSION: Normal appearing left testicle.? Status post right orchiectomy.? No evidence of torsion or hernia..? Lab Data Lab results reviewed: Yes I reviewed the patient's lab results. Labs: Laboratory Tests Range/Units 08/06/21 08/06/21 08/06/21 07:55 07:55 07:55 WBC (4.4-10.8) 10^3/uL 10.03 RBC (4.36-5.78) 10^6/uL 6.22 H Hgb (13.5-17.5) g/dL 17.7 H Hct (40.0-50.0) % 51.0 H MCV (80-95) fL 82.0 MCH (27.0-33.0) pg 28.5 MCHC (32.0-36.0) % 34.7 RDW (11.8-14.1) % 12.5 Plt Count (130-400) 10^3/uL 218 MPV (8.0-11.0) fL 11.1 H Immature Gran % 0.2 Neutrophils % 92.0 Lymphocytes % 3.4 Monocytes % 4.2 Eosinophils % 0.0 Basophils % 0.2 Nucleated RBC % % 0 Absolute Neutrophils (1.2-6.7) 10^3/uL 9.23 H Absolute Lymphocytes (1.2-3.4) 10^3/uL 0.34 L Absolute Monocytes (0.1-0.8) 10^3/uL 0.42 Absolute Eosinophils (0.0-0.7) 10^3/uL 0.00 Absolute Basophils (0.0-0.2) 10^3/uL 0.02 Sodium (136-145) mmol/L 141 Potassium (3.5-5.1) mmol/L 4.1 Chloride (98-107) mmol/L 102 Carbon Dioxide (21.0-32.0) mmol/L 24.4 Anion Gap (3-11) mmol/L 14.6 H BUN (7-18) mg/dL 23 H Creatinine (0.70-1.30) mg/dL 1.3 Estimated GFR/1.73 m2 (mL/min/1.73m2) >= 60.00 Glucose (74-106) mg/dL 158 H Calcium (8.5-10.1) mg/dL 10.0 Phosphorus (2.6-4.7) mg/dL Magnesium (1.8-2.4) mg/dL 1.8 Total Bilirubin (0.2-1.0) mg/dL 1.5 H AST (15-37) U/L 15 ALT (16-63) U/L 25 Alkaline Phosphatase (46-116) U/L 108 Troponin I (<or=60) ng/L < 50 Total Protein (6.4-8.2) g/dL 8.5 H Albumin (3.4-5.0) g/dL 4.6 Lipase (73-393) U/L 37 Urine Color (Yellow) Urine Clarity (Clear) Urine pH (5-8) Ur Specific [place] (1.005-1.025) Urine Protein (Negative) mg/dL Urine Ketones (Negative) mg/dL Urine Blood (Negative) Urine Nitrite (Negative) Urine Bilirubin (Negative) Urine Urobilinogen (Up TO 0.2) EU/dL Ur Leukocyte Esterase (Negative) Urine RBC (0-2) HPF Urine WBC (0-5) HPF Ur Epithelial Cells (Negative) HPF Urine Crystals (Negative) HPF Urine Bacteria (Negative) HPF Urine Casts (Negative) LPF Urine Mucus (Negative) Ur Culture Indicated? Urine Glucose (Negative) mg/dL COVID-19 Source SARS-CoV-2 (PCR) (Negative) Range/Units 08/06/21 08/06/21 08/06/21 07:55 11:10 11:13 WBC (4.4-10.8) 10^3/uL RBC (4.36-5.78) 10^6/uL Hgb (13.5-17.5) g/dL Hct (40.0-50.0) % MCV (80-95) fL MCH (27.0-33.0) pg MCHC (32.0-36.0) % RDW (11.8-14.1) % Plt Count (130-400) 10^3/uL MPV (8.0-11.0) fL Immature Gran % Neutrophils % Lymphocytes % Monocytes % Eosinophils % Basophils % Nucleated RBC % % Absolute Neutrophils (1.2-6.7) 10^3/uL Absolute Lymphocytes (1.2-3.4) 10^3/uL Absolute Monocytes (0.1-0.8) 10^3/uL Absolute Eosinophils (0.0-0.7) 10^3/uL Absolute Basophils (0.0-0.2) 10^3/uL Sodium (136-145) mmol/L Potassium (3.5-5.1) mmol/L Chloride (98-107) mmol/L Carbon Dioxide (21.0-32.0) mmol/L Anion Gap (3-11) mmol/L BUN (7-18) mg/dL Creatinine (0.70-1.30) mg/dL Estimated GFR/1.73 m2 (mL/min/1.73m2) Glucose (74-106) mg/dL Calcium (8.5-10.1) mg/dL Phosphorus (2.6-4.7) mg/dL < 2.0 L Magnesium (1.8-2.4) mg/dL Total Bilirubin (0.2-1.0) mg/dL AST (15-37) U/L ALT (16-63) U/L Alkaline Phosphatase (46-116) U/L Troponin I (<or=60) ng/L < 50 Total Protein (6.4-8.2) g/dL Albumin (3.4-5.0) g/dL Lipase (73-393) U/L Urine Color (Yellow) Yellow Urine Clarity (Clear) Clear Urine pH (5-8) 6.5 Ur Specific [place] (1.005-1.025) 1.020 Urine Protein (Negative) mg/dL 30 H Urine Ketones (Negative) mg/dL Negative Urine Blood (Negative) Negative Urine Nitrite (Negative) Negative Urine Bilirubin (Negative) Negative Urine Urobilinogen (Up TO 0.2) EU/dL 0.2 Ur Leukocyte Esterase (Negative) Negative Urine RBC (0-2) HPF Negative Urine WBC (0-5) HPF Negative Ur Epithelial Cells (Negative) HPF Rare Urine Crystals (Negative) HPF Negative Urine Bacteria (Negative) HPF Negative Urine Casts (Negative) LPF 0-2 Hyaline Urine Mucus (Negative) Trace Ur Culture Indicated? No Urine Glucose (Negative) mg/dL Negative COVID-19 Source SARS-CoV-2 (PCR) (Negative) Range/Units 08/06/21 13:16 WBC (4.4-10.8) 10^3/uL RBC (4.36-5.78) 10^6/uL Hgb (13.5-17.5) g/dL Hct (40.0-50.0) % MCV (80-95) fL MCH (27.0-33.0) pg MCHC (32.0-36.0) % RDW (11.8-14.1) % Plt Count (130-400) 10^3/uL MPV (8.0-11.0) fL Immature Gran % Neutrophils % Lymphocytes % Monocytes % Eosinophils % Basophils % Nucleated RBC % % Absolute Neutrophils (1.2-6.7) 10^3/uL Absolute Lymphocytes (1.2-3.4) 10^3/uL Absolute Monocytes (0.1-0.8) 10^3/uL Absolute Eosinophils (0.0-0.7) 10^3/uL Absolute Basophils (0.0-0.2) 10^3/uL Sodium (136-145) mmol/L Potassium (3.5-5.1) mmol/L Chloride (98-107) mmol/L Carbon Dioxide (21.0-32.0) mmol/L Anion Gap (3-11) mmol/L BUN (7-18) mg/dL Creatinine (0.70-1.30) mg/dL Estimated GFR/1.73 m2 (mL/min/1.73m2) Glucose (74-106) mg/dL Calcium (8.5-10.1) mg/dL Phosphorus (2.6-4.7) mg/dL Magnesium (1.8-2.4) mg/dL Total Bilirubin (0.2-1.0) mg/dL AST (15-37) U/L ALT (16-63) U/L Alkaline Phosphatase (46-116) U/L Troponin I (<or=60) ng/L Total Protein (6.4-8.2) g/dL Albumin (3.4-5.0) g/dL Lipase (73-393) U/L Urine Color (Yellow) Urine Clarity (Clear) Urine pH (5-8) Ur Specific [place] (1.005-1.025) Urine Protein (Negative) mg/dL Urine Ketones (Negative) mg/dL Urine Blood (Negative) Urine Nitrite (Negative) Urine Bilirubin (Negative) Urine Urobilinogen (Up TO 0.2) EU/dL Ur Leukocyte Esterase (Negative) Urine RBC (0-2) HPF Urine WBC (0-5) HPF Ur Epithelial Cells (Negative) HPF Urine Crystals (Negative) HPF Urine Bacteria (Negative) HPF Urine Casts (Negative) LPF Urine Mucus (Negative) Ur Culture Indicated? Urine Glucose (Negative) mg/dL COVID-19 Source Nasal/Nares SARS-CoV-2 (PCR) (Negative) Negative ECG Data Attestation: I personally reviewed and interpreted this ECG (s) as follows: Interpretation: EKG shows sinus rhythm at 99, normal axis, T wave changes V4 through V6 not seen on prior, no STEMI, nondiagnostic EKG EKG shows sinus rhythm at 74, normal axis, no major change from prior, no STEMI, nondiagnostic EKG HPI General Date/Time Provider Initiated Documentation: 08/06/21 08:05. HPI Narrative: Bunny Dougherty is a 26-year-old man without reported history of major medical problems presenting to emergency department with vomiting and diarrhea. Patient reports that he has been feeling well up until yesterday afternoon. He reports that approximately 1 PM he had an episode of diarrhea, which is not typical for him. Patient reports that he felt fine thereafter and ate dinner as usual. Patient reports that at approximately 10 PM last night he woke up with vomiting, and then developed subsequent diarrhea. Patient reports that after vomiting he developed bilateral lower abdominal pain that has been ongoing since onset last night. He reports that he typically is constipated. He reports no appetite changes prior to onset of symptoms at 10 PM last night. He denies fever, any other pain, cough, shortness of breath, bloody or black emesis, bloody or black diarrhea, numbness, weakness, dysuria, testicular pain He reports chronic unchanged rash to his right arm and back. Has not urinated since onset of symptoms at 10:00 last night. Patient reports that he had testicular torsion in the past and had right orchiectomy at that time. Related Data Home Medications Medication Instructions Recorded Confirmed ondansetron 4 mg disintegrating 4 mg PO BID-TID PRN #9 tab 08/06/21 tablet sodium di- and 1 tab PO BID #6 tab 08/06/21 monophosphate-potassium phos monobasic 250 mg tablet (Phosphorous) Previous Rx's Medication Instructions Recorded ondansetron 4 mg disintegrating 4 mg PO BID-TID PRN #9 tab 08/06/21 tablet sodium di- and 1 tab PO BID #6 tab 08/06/21 monophosphate-potassium phos monobasic 250 mg tablet (Phosphorous) Allergies Allergy/AdvReac Type Severity Reaction Status Date / Time No Known Allergies Allergy Unverified 08/06/21 07:45 General Stated Complaint: Abd Prob URIEL: 3 Review of Systems Narrative: Constitutional: denies fevers Eyes: denies eye pain ENT: denies ear pain, dental pain, sore throat Cardiovascular: denies chest pain Respiratory: denies SOB, cough GI: Reports lower abdominal pain, vomiting, diarrhea : denies flank pain, dysuria, testicular pain MSK: denies back pain, neck pain, arthralgias, myalgias Skin: Reports chronic rash as per HPI Neuro: denies headaches, numbness, weakness PFSH All Active Problems Abdominal pain, vomiting, and diarrhea (Acute) Hypophosphatemia (Acute) COVID-19 (Acute) Chronic diarrhea (Acute) Lightheadedness (Acute) Frequent PVCs (Acute) Chest pain (Acute) Social History Smoking/Tobacco Use Status: Never Smoking risk assessment performed?: Yes Alcohol Intake: current Alcohol Intake frequency: holidays/special occasions only Drug use: Never Substance use type: does not use Do you feel safe at home: Yes Do you feel safe in your relationship?: Yes Exam Narrative Exam Narrative: Constitutional: well and [id number], pleasant, conversing normally HENT: head atraumatic/normocephalic/normal inspection, mucous membranes moist Eyes: conjunctiva normal, sclera normal, pupils 3mm b/l Neck: no stridor, normal ROM, trachea midline Chest: normal inspection Resp: normal work of breathing, speaking in full sentences Cardio: normal rate, normal rhythm GI: abdomen soft, diffusely tender to palpation, worse in left lower quadrant/left inguinal area, no mass or hernia appreciated, no distention : No inguinal lymphadenopathy bilaterally, testicle nontender to palpation, no mass, edema, or overlying skin changes Back: Scattered macular rash over the right back/flank, no tenderness, no erythema patient reports as chronic and unchanged for several months Skin: warm, dry, normal color, no rash Neuro: alert, not altered, grossly non-focal, normal tone Ext: no edema Psych: normal mood, normal affect, normal behavior Course Vital Signs Vital signs: Vital Signs Temperature 36 C L 08/06/21 07:41 Pulse 117 H 08/06/21 07:41 Respiratory Rate 18 08/06/21 07:41 Blood Pressure 114/97 H 08/06/21 07:41 Pulse Oximetry 100 08/06/21 07:41 Temperature 36 C L 08/06/21 07:41 Temperature Source Temporal Artery Scan 08/06/21 07:41 Pulse 117 H 08/06/21 07:41 Respiratory Rate 18 08/06/21 07:41 Respiratory Effort Non-Labored 08/06/21 07:46 Blood Pressure 114/97 H 08/06/21 07:41 Blood Pressure Position Sitting 08/06/21 07:41 Pulse Oximetry 100 08/06/21 07:41 Oxygen Delivery Method Room Air 08/06/21 07:41 Oxygen Flow Rate 0 08/06/21 07:41 Pain Level 10 08/06/21 07:41
[2021-08-06 08:26] LABS: Abs Immature Grans 0.02 10^3/uL (0.0-0.06); Absolute Basophil Count 0.02 10^3/uL (0.0-0.2); Absolute Lymphocyte Count 0.34 10^3/uL (1.2-3.4); Absolute Monocyte Count 0.42 10^3/uL (0.1-0.8); Absolute Neutrophil Count 9.23 10^3/uL (1.2-6.7); Basophils % 0.2; HGB 17.7 g/dL (13.5-17.5); Immature Grans % 0.2; Lymphocytes % 3.4; MCH 28.5 pg (27.0-33.0); MCHC 34.7 % (32.0-36.0); MPV 11.1 fL (8.0-11.0); Monocytes % 4.2; Nucleated RBC 0 %; Platelet Count 218 10^3/uL (130-400); RBC 6.22 10^6/uL (4.36-5.78); RDW 12.5 % (11.8-14.1); RDW-SD 36.9 fL; WBC 10.03 10^3/uL (4.4-10.8)
[2021-08-06] MEDS: MORPHine 4 MG/ML SYR IVP ×2 (08:27→10:00)
[2021-08-06] MEDS: Normal Saline 1,000 ML 1000 ML IV ×3 (08:27→13:43)
[2021-08-06] MEDS: Ondansetron 4 MG/2 ML VIAL IVP (08:27)
[2021-08-06 08:45] LABS: ALT 25 U/L (16-63); AST 15 U/L (15-37); Albumin 4.6 g/dL (3.4-5.0); Alkaline Phosphatase 108 U/L (46-116); Anion Gap 14.6 mmol/L (3-11); BUN 23 mg/dL (7-18); Bilirubin, Total 1.5 mg/dL (0.2-1.0); CO2 24.4 mmol/L (21.0-32.0); CREATININE 1.3 mg/dL (0.70-1.30); Chloride 102 mmol/L (98-107); Glucose 158 mg/dL (74-106); Lipase 37 U/L (73-393); Magnesium 1.8 mg/dL (1.8-2.4); PHOSPHORUS < 2.0 mg/dL (2.6-4.7); Potassium 4.1 mmol/L (3.5-5.1); Sodium 141 mmol/L (136-145); Total Protein 8.5 g/dL (6.4-8.2)
[2021-08-06 08:50] LABS: Troponin I < 50 ng/L (<or=60)
[2021-08-06] MEDS: Omnipaque 350 MG/ML 100 ML BTL IJ (09:01)
--- NOTE | 2021-08-06 09:30 | DI.CT_ITS ---
Exam(s) CT ABDOMEN PELVIS W EXAM: CT ABDOMEN PELVIS W CLINICAL HISTORY: abd pain. TECHNIQUE: Imaging Protocol: Axial computed tomography images with coronal and sagittal reformatted images were created and reviewed CONTRAST MATERIAL: Intravenous: Omnipaque 350 Contrast volume:100 ml Oral: / no COMPARISON: CT CT CHEST PE CTA from 06/12/2021 FINDINGS: ABDOMEN: Exam limited by respiratory motion. Lung Bases: Normal where visualized. Liver: Normal density. No measurable mass. Gallbladder and biliary tract: No radiodense calculus or dilation. Pancreas: Normal density, no abnormal calcifications or inflammatory process. Spleen: Normal. Kidneys: Normal size, contour and axis. No radiodense stones or obstructive uropathy. No masses seen. Adrenal glands: No masses seen. Abdominal Aorta: Abdominal portion non-dilated. PELVIS: Bladder: No gross wall thickening. No calculi.No focal mass. Bowel: Evaluation limited due to motion and lack oral contrast. Normal quantity of stool. No obstru ction or bowel wall thickening. Appendix normal. Peritoneal cavity: No ascites, collection or mesenteric inflammatory response. No free air. Bones: Within normal limits for age. Reproductive organs: Within normal limits. Lymph nodes: Unremarkable. Impression: Limited evaluation of bowel, particularly the transverse colon due to motion. No acute abnormality i s identified. No evidence of appendicitis. RADIATION DOSE DELIVERED: 1,173.09mGy.cm Total DLP DATA REPOSITORY: All CT scans at this facility are submitted to the National Radiology Data Registry (NRDR) Dose Index Registry (DIR) with the [employer] ([employer]). RADIATION OPTIMIZATION: All CT scans at this facility use at least one of these dose optimization te chniques: automated exposure control; mA and/or kV adjustment per patient size (includes targeted exa ms where dose is matched to clinical indication); or iterative reconstruction.
--- NOTE | 2021-08-06 10:15 | DI.US_ITS ---
Exam(s) US SCROTUM EXAM: US SCROTUM CLINICAL HISTORY: lower left abdominal pain. TECHNIQUE: Scrotal ultrasound performed using grayscale, color-flow and spectral Doppler analysis. COMPARISON: CT CT ABDOMEN PELVIS W from 08/06/2021 FINDINGS: Right testicle: Status post right orchiectomy. Cm Left testicle: 5.4 x 2.2 x 3.7 cm Echogenicity: Normal. Contour: Smooth. Mass: None seen. Microlithiasis: None. Hydrocele: None. Variocele: None. Hernia: No peristalsing bowel loop identified. Epididymis: Normal. DOPPLER: Color: Symmetric and uniform, no hyperemia. Duplex: testicular arterial waveforms visualized. IMPRESSION: Normal appearing left testicle. Status post right orchiectomy. No evidence of torsion or hernia.. DATA REPOSITORY:
[2021-08-06 11:28] LABS: Bilirubin Negative (Negative); Blood Negative (Negative); Clarity Clear (Clear); Glucose Negative (Negative); Ketones Negative (Negative); Leukocyte Esterase Negative (Negative); Nitrite Negative (Negative); Urobilinogen 0.2 EU/dL (Up TO 0.2); pH 6.5 (5-8)
[2021-08-06 11:37] LABS: Bacteria Negative HPF (Negative); C & S Indicated? No; Casts 0-2 Hyaline LPF (Negative); Crystals Negative HPF (Negative); Epithelial Cells Rare HPF (Negative); Mucus Trace (Negative); RBC Negative HPF (0-2); WBC Negative HPF (0-5)
[2021-08-06 11:45] LABS: Troponin I < 50 ng/L (<or=60)
[2021-08-06 13:21] LABS: Source Nasal/Nares
--- NOTE | 2021-08-06 13:21 | SCONE_ITS ---
Date of service: 08/06/21 Time of Service: 13:21 Assessment and Plan Assessment and plan (1) Abdominal pain, vomiting, and diarrhea: Status: Acute Assessment and plan: Mr. Dougherty is a healthy 26-year-old gentleman who came to the emergency department with nausea vomiting diarrhea and lower abdominal pain. CT scan of his abdomen and pelvis were unremarkable. Labs were unremarkable. Ultrasound of his testicles was unremarkable. On exam his abdomen is soft, nondistended, mildly tender to palpation. There is no guarding or rebound. I suspect that he has got some viral gastroenteritis. Recommend fluids, clear liquid diet for the next 24 hours and some Bentyl and or levsin for the abdominal cramping. Follow up with PCP as outpatient I spent 45 minutes in reviewing the record, seeing the patient and documenting in the medical record. History of Present Illness Narrative: Mr. Bunny Dougherty is a 26-year-old man without reported history of major medical problems who presented to emergency department with vomiting and diarrhea.? Patient reports that he has been feeling well until yesterday afternoon.? He reports that approximately 1 PM he had an episode of diarrhea, which is not typical for him.? Patient reports that he felt fine thereafter and ate dinner as usual.? Patient reports that at approximately 10 PM last night he woke up with vomiting, and then developed subsequent diarrhea.? Patient reports that after vomiting he developed bilateral lower abdominal pain that has been ongoing since onset last night.? He reports that he typically is constipated.? He reports no appetite changes prior to onset of symptoms at 10 PM last night.? He denies fever, any other pain, cough, shortness of breath, bloody or black emesis, bloody or black diarrhea, numbness, weakness, dysuria, testicular pain? He reports chronic unchanged rash to his right arm and back.? Has not urinated since onset of symptoms at 10:00 last night.? Patient reports that he had testicular torsion in the past and had right orchiectomy at that time. Workup in the ER included labs, CT scan and US of his testicle. Labs were unremarkable. I reviewed the CT scan and US- NO acute findings. Patient has been slightly tachycardic in the ER despite fluids. He denies having eaten anything different. NO one else is sick. He had COVID a while back. NO SOB. He describes the pain as constant but when I asked him to be more s pecific he did state that the pain comes in waves. He continues to be nauseated and vomiting Consults Consult date: 08/06/21 Requesting physician: Yesenia Atkins Review of Systems Constitutional Constitutional: Denies fatigue, Denies fever(s), Denies headache(s) and Denies weight loss Eyes Eyes: Denies change in vision ENT Ears, Nose, Mouth, and Throat: Denies change in voice, Denies dysphagia, Denies headache(s) and Denies hoarseness Cardiovascular Cardiovascular: Denies chest pain, Denies irregular heart rhythm, Denies palpitations and Denies dyspnea Respiratory Respiratory: Denies cough and Denies dyspnea Gastrointestinal Gastrointestinal: Reports as per HPI, Reports system reviewed and no additional complaints, except as documented and Denies dysphagia Genitourinary Genitourinary: Reports system reviewed and no additional complaints, except as documented Musculoskeletal Musculoskeletal: Reports system reviewed and no additional complaints, except as documented Integumentary/Breasts Skin/Breast: Reports system reviewed and no additional complaints, except as documented Neurologic Neurologic: Reports system reviewed and no additional complaints, except as documented and Denies headache(s) Psychiatric Psychiatric: Reports system reviewed and no additional complaints, except as documented Endocrine Endocrine: Denies fatigue and Denies palpitations PFSH All Active Problems Abdominal pain, vomiting, and diarrhea (Acute) Hypophosphatemia (Acute) COVID-19 (Acute) Chronic diarrhea (Acute) Lightheadedness (Acute) Frequent PVCs (Acute) Chest pain (Acute) Social History Smoking/Tobacco Use Status: Never Smoking risk assessment performed?: Yes Alcohol Intake: current Alcohol Intake frequency: holidays/special occasions only Drug use: Never Substance use type: does not use Do you feel safe at home: Yes Do you feel safe in your relationship?: Yes Exam Const General: cooperative, comfortable and no acute distress Nutritional Appearance: average body habitus Orientation: alert and oriented x3 HENMT Head: normocephalic and atraumatic Eyes Pupils: PERRL Resp Effort & Inspection: normal respiratory effort Auscultation: clear to auscultation bilaterally Cardio Rate: regular rate Rhythm: regular rhythm GI Inspection: normal to inspection Palpation: soft, no hepatosplenomegaly, no hernias and tender (mild right and suprapubic tenderness) Auscultation: normal bowel sounds Results Last Vital Signs Temp 96.8 F L 08/06/21 07:41 Pulse 93 H 08/06/21 10:00 Resp 19 08/06/21 10:00 BP 122/67 08/06/21 10:00 Pulse Ox 99 08/06/21 10:00 Labs Result diagrams: 08/06/21 07:55 08/06/21 07:55 Labs: Laboratory Results - last 24 hr 08/06/21 08/06/21 08/06/21 07:55 07:55 07:55 WBC 10.03 RBC 6.22 H Hgb 17.7 H Hct 51.0 H MCV 82.0 MCH 28.5 MCHC 34.7 RDW 12.5 Plt Count 218 MPV 11.1 H Immature Gran % 0.2 Neutrophils % 92.0 Lymphocytes % 3.4 Monocytes % 4.2 Eosinophils % 0.0 Basophils % 0.2 Nucleated RBC % 0 Absolute Neutrophils 9.23 H Absolute Lymphocytes 0.34 L Absolute Monocytes 0.42 Absolute Eosinophils 0.00 Absolute Basophils 0.02 Sodium 141 Potassium 4.1 Chloride 102 Carbon Dioxide 24.4 Anion Gap 14.6 H BUN 23 H Creatinine 1.3 Estimated GFR/1.73 m2 >= 60.00 Glucose 158 H Calcium 10.0 Phosphorus Magnesium 1.8 Total Bilirubin 1.5 H AST 15 ALT 25 Alkaline Phosphatase 108 Troponin I < 50 Total Protein 8.5 H Albumin 4.6 Lipase 37 Urine Color Urine Clarity Urine pH Ur Specific Rogers Urine Protein Urine Ketones Urine Blood Urine Nitrite Urine Bilirubin Urine Urobilinogen Ur Leukocyte Esterase Urine RBC Urine WBC Ur Epithelial Cells Urine Crystals Urine Bacteria Urine Casts Urine Mucus Ur Culture Indicated? Urine Glucose 08/06/21 08/06/21 08/06/21 07:55 11:10 11:13 WBC RBC Hgb Hct MCV MCH MCHC RDW Plt Count MPV Immature Gran % Neutrophils % Lymphocytes % Monocytes % Eosinophils % Basophils % Nucleated RBC % Absolute Neutrophils Absolute Lymphocytes Absolute Monocytes Absolute Eosinophils Absolute Basophils Sodium Potassium Chloride Carbon Dioxide Anion Gap BUN Creatinine Estimated GFR/1.73 m2 Glucose Calcium Phosphorus < 2.0 L Magnesium Total Bilirubin AST ALT Alkaline Phosphatase Troponin I < 50 Total Protein Albumin Lipase Urine Color Yellow Urine Clarity Clear Urine pH 6.5 Ur Specific Rogers 1.020 Urine Protein 30 H Urine Ketones Negative Urine Blood Negative Urine Nitrite Negative Urine Bilirubin Negative Urine Urobilinogen 0.2 Ur Leukocyte Esterase Negative Urine RBC Negative Urine WBC Negative Ur Epithelial Cells Rare Urine Crystals Negative Urine Bacteria Negative Urine Casts 0-2 Hyaline Urine Mucus Trace Ur Culture Indicated? No Urine Glucose Negative Imaging Abdomen CT scan report/results: report reviewed and image reviewed Imaging Studies: US testicles- report reviewed and images reviewed
[2021-08-06] MEDS: Hyoscyamine 0.125 MG SL/ORAL/CHEW PO (13:43)
[2021-08-06] MEDS: Acetaminophen 500 MG TAB (13:43)
[2021-08-06 14:06] LABS: COVID-19 PCR Negative (Negative)
--- NOTE | 2021-08-06 15:00 | RT.EKG_ITS ---
APPROVED REPORT Exam: Resting ECG Reason for Exam: repeat Patient Location: E HR:74 bpm ECG Measurements Heart Rate 74 AXIS TN 148 P 8 QRSd 97 QRS 61 QT 339 T -19 QTc 376 Conclusion Sinus rhythm...normal P axis, V-rate 60- 99 Nonspecific T abnormalities, diffuse leads...T <-0.10mV, ant/lat/inf sinus rhythm at 74, normal axis, no major change from prior, no STEMI, nondiagnostic EKG
--- NOTE | 2021-08-06 15:54 | NUR.NOTE ---
Nursing Note: Referral given to Care Management for hypophosphatemia this week; needs PCP. Xiomy Pickett
== END 2021-08-06 15:46 | disposition home or self-care (01) ==
PROVIDERS: Emergency Provider Student in an Organized Health Care Education/Training Program
DX: R10.30 Lower abdominal pain, unspecified (principal); R11.10 Vomiting, unspecified; R19.7 Diarrhea, unspecified; E83.39 Other disorders of phosphorus metabolism
CPT/HCPCS: 36415; 80053; 83690; 87635; 93005; 96361; 96374; 96375; 96376; 99285; 74177; 76870; 81003; 81015; 83735; 84100; 84484; 85025; 93010; 99284; J2270; J2405; J3490

== ENCOUNTER 2021-08-11 16:31 | Emergency (ER) | payer SELFPAY ==
[2021-08-11 16:34] VITALS: BP 141/102; PULSE 78; RESP 14; TEMP 37; O2SAT 97
--- NOTE | 2021-08-11 16:45 | DI.CT_ITS ---
Exam(s) CT HEAD NECK W EXAM: CT HEAD NECK W CLINICAL HISTORY: Right posterior neck mass TECHNIQUE: COMPARISON: CT CT HEAD WO from 06/12/2021 FINDINGS: CT HEAD WITHOUT IV CONTRAST: There are no skull fractures nor fluid in the visualized paranasal sinuses and mastoid air cells. No evidence of obvious intracranial hemorrhage. No mass effect or shift of midline structures. No ext ra-axial fluid collections. Ventricles are not enlarged or shifted. There are no ring enhancing les ions in the brain. No abnormal meningeal enhancement, focal nor diffuse. CT SOFT TISSUES OF THE NECK WITH IV CONTRAST: Nasopharynx: Unremarkable Oropharynx: Unremarkable Hypopharynx: Unremarkable Retropharyngeal space: Unremarkable. No significant swelling. Larynx: Unremarkable. Aryepiglottic folds, epiglottis, and vocal cords unremarkable. Subglottic airway: Unremarkable Thyroid gland: Unremarkable. Normal size. No obvious nodules. Salivary glands: Unremarkable. Parotid and submandibular glands appear normal. Vascular: No significant carotid artery stenosis in the neck. Lymph nodes: There is an enlarged right occipital lymph node measuring 1.5 x 1.0 cm with mild surroun ding fatty reticulation. There are also enlarged right posterior cervical lymph nodes, measuring up to 1.6 cm long-axis. There is some fatty reticulation also evident at this level. There is no obvious lymphadenopathy in left side of the neck. There is no supraclavicular adenopathy . IMPRESSION: Right occipital and posterior right cervical lymphadenopathy, new when compared to prior CT scan of 0 06/12/2021. There is some mild overlying skin thickening and subcutaneous fatty reticulation. Most p robable etiology is infectious/inflammatory. Appropriate follow-up recommended to rule out lymphopro liferative process.
--- NOTE | 2021-08-11 16:50 | W.ED.GENAD ---
Discharge Plan Disposition Patient Disposition: HOME Condition: Stable Discharge Details Clinical Impression: Occipital lymphadenopathy Primary Care Provider: Unknown,Unknown ED Provider: Ai Alcantara Home Meds and New Rx's Prescriptions: No Action Phosphorous 250 mg tablet 1 tab PO BID Qty: 6 0RF ondansetron 4 mg tablet,disintegrating 4 mg PO BID-TID PRN (Reason: nausea and vomiting) Qty: 9 0RF Discharge Instructions Instructions: Lymphadenopathy (ED) Additional Instructions: CT shows swollen lymph nodes most likely related to infection or inflammation. Use warm compresses. Your labs are all within normal limits. Please follow-up regarding these results with your primary care provider within the week. Follow-up sooner if they get bigger or change. Follow up with primary care provider in 3-5 days. Return to ED sooner if any worsening or concerns. Increase oral fluids. Please take Tylenol or Ibuprofen with food every 4-6 hours as needed for pain and swelling. Referrals: Vero Thomas NP [NURSE PRACTITIONER] - 1 week Discharge Data Discharge Date/Time-TO BE ENTERED AT DEPARTURE: 08/11/21 18:12 Medical Decision Making 26-year-old male presents to the ER with chief complaint of right posterior occipital and right neck lymphadenopathy. He reports noting a lump which is tender to the touch approximately 2 and half weeks ago. He states that over the last couple days and new mass has developed to his right posterior neck. He was seen by his ECP 2 days ago and has a CT scheduled for of his head and neck. Patient reports that he woke up this morning with worsening pain. He denies any throat pain or tooth pain. Denies any ear pain or fever. He was also recently seen here in the ER for abdominal pain nausea vomiting and was seen shortly thereafter at [facility] for palpitations. Other past medical history includes COVID-19 in June, hypophosphatemia and chest pain. On initial exam there is no erythema, no laceration or signs of induration. They are tender to the touch. Approximately [address] head and neck with contrast ordered, CBC CMP. CBC largely within normal limits no leukocytosis, CMP also within normal limits. CT HEAD WO 06/12/2021 12:57 PM FINDINGS: Brain: Unremarkable white matter. No mass effect. No abnormal enhancing lesions. Cerebral ventricles: Unremarkable. No ventriculomegaly. Bones/joints: Unremarkable. No acute fracture. Paranasal sinuses: Visualized sinuses are unremarkable. No fluid levels. Mastoid air cells: Visualized mastoid air cells are well aerated. Soft tissues: Unremarkable. IMPRESSION: No acute intracranial abnormality. COMPARISON: CT BRAIN NECK CTA 06/12/2021 12:17 PM FINDINGS: Nasopharynx: Unremarkable. Oropharynx: Unremarkable. No significant tonsillar enlargement. Hypopharynx: Unremarkable. Larynx: Unremarkable. Normal epiglottis. Retropharyngeal space: Unremarkable. Submandibular/Parotid glands: Normal. Glands are normal in size. Thyroid: Normal. No enlarged or calcified nodules. Lymph nodes: Enlarged right occipital lymph node measures 1.4 x 1.0 cm with mild surrounding fatty reticulation. Enlarged junctional right level 2b/5A lymph nodes with surrounding fatty reticulation measure up to 1.6 cm long axis. Trachea: Visualized trachea is unremarkable. Lungs: Unremarkable as visualized. Bones/joints: Unremarkable. No acute fracture. Soft tissues: There is mild skin thickening and subcutaneous fatty reticulation of the right posterior upper neck (see series 13, image 445, for example). IMPRESSION: Right occipital and posterior right cervical lymphadenopathy, new as compared to the prior study of 06/12/2021, with mild overlying skin thickening and subcutaneous fatty reticulation. The imaging findings are concerning for infectious or inflammatory change. Other lymphoproliferative processes are considered less likely. Thank you for allowing us to participate in the care of your patient. Dictated and Authenticated by: Rohan Long MD Discussed CT results with patient verbalized understanding. I did discuss follow-up with PCP to discuss further steps. Patient verbalized understanding. HPI General Mode of arrival: ambulatory. Date/Time Provider Initiated Documentation: 08/11/21 16:32. Limitations to Documentation: no limitations. Information obtained by: patient, RN notes reviewed and old records reviewed. HPI Narrative: 26-year-old male presents to the ER with chief complaint of right posterior occipital and right neck lymphadenopathy. He reports noting a lump which is tender to the touch approximately 2 and half weeks ago. He states that over the last couple days and new mass has developed to his right posterior neck. He was seen by his ECP 2 days ago and has a CT scheduled for of his head and neck. Patient reports that he woke up this morning with worsening pain. He denies any throat pain or tooth pain. Denies any ear pain or fever. He was also recently seen here in the ER for abdominal pain nausea vomiting and was seen shortly thereafter at [facility] for palpitations. Other past medical history includes COVID-19 in June, hypophosphatemia and chest pain. On initial exam there is no erythema, no laceration or signs of induration. They are tender to the touch. Approximately 2 cm in diameter. Related Data Home Medications Medication Instructions Recorded Confirmed ondansetron 4 mg disintegrating 4 mg PO BID-TID PRN #9 tab 08/06/21 08/11/21 tablet sodium di- and 1 tab PO BID #6 tab 08/06/21 08/11/21 monophosphate-potassium phos monobasic 250 mg tablet (Phosphorous) Previous Rx's Medication Instructions Recorded ondansetron 4 mg disintegrating 4 mg PO BID-TID PRN #9 tab 08/06/21 tablet sodium di- and 1 tab PO BID #6 tab 08/06/21 monophosphate-potassium phos monobasic 250 mg tablet (Phosphorous) Allergies Allergy/AdvReac Type Severity Reaction Status Date / Time No Known Allergies Allergy Unverified 08/11/21 16:39 General Stated Complaint: GenMedical URIEL: 3 Review of Systems All systems reviewed & are unremarkable except as noted in HPI and below ENT Ears, Nose, Mouth, and Throat: Reports neck mass and Denies odynophagia Gastrointestinal Gastrointestinal: Denies odynophagia Hematologic/Lymphatic Hematologic/Lymphatic: Reports as per HPI and Reports lymphadenopathy Allergic/Immunologic Allergic/Immunologic: Reports as per HPI Comments: Swollen lymph nodes PFSH All Active Problems (Updated 08/11/21 @ 17:53 by Ai Alcantara) Occipital lymphadenopathy (Acute) Abdominal pain, vomiting, and diarrhea (Acute) Hypophosphatemia (Acute) COVID-19 (Acute) Chronic diarrhea (Acute) Lightheadedness (Acute) Frequent PVCs (Acute) Chest pain (Acute) Social History Smoking/Tobacco Use Status: Never Smoking risk assessment performed?: Yes Alcohol Intake: current Alcohol Intake frequency: holidays/special occasions only Drug use: Never Substance use type: does not use Do you feel safe at home: Yes Do you feel safe in your relationship?: Yes Exam Narrative Exam Narrative: Constitutional: Alert and oriented x3. Appears stated age. Normal body habitus. Head: Normocephalic, no trauma. Eyes: Pupils PERRL, Red reflex noted, EOM's intact. Eyelids symmetrical without lesions, discharge, or swelling. ENT: Bilateral TM's WNL, External ear normal to inspection, no mastoid TTP, swelling, or erythema, Nasal turbinates WNL, no nasal discharge. Normal dentition, Posterior pharynx WNL, no exudate. Posterior right lymph nodes palpable and tender with palpation. Chest: RRR, Normal S1, S2, distal pulses intact. Resp: Lungs clear to auscultation bilaterally, no wheezes, rales, or rhonchi. Abdomen: Soft, non-distended, Normoactive bowel sounds all 4 quads. Musculoskeletal: Normal gait, 5/5 strength to all four extremities. Skin: No suspicious rashes or lesions. Capillary refill less than 2 sec. Neurologic: Cranial nerves II-XII intact. Alert and oriented x 3. Motor: No deficits noted. Sensory: Intact bilaterally all 4 extremities. Reflexes: DTR's intact bilaterally.. Hematologic/Lymphatic: No ecchymosis, no lymphadenopathy. [facility] Head images: 1. Swelling and tenderness 2. Swelling and tenderness Course Vital Signs Vital signs: Vital Signs Temperature 37.0 C 08/11/21 16:34 Pulse 78 08/11/21 16:34 Respiratory Rate 14 08/11/21 16:34 Blood Pressure 141/102 H 08/11/21 16:34 Pulse Oximetry 97 08/11/21 16:34 Temperature 37.0 C 08/11/21 16:34 Temperature Source Temporal Artery Scan 08/11/21 16:34 Pulse 78 08/11/21 16:34 Respiratory Rate 14 08/11/21 16:34 Respiratory Effort Non-Labored 08/11/21 16:37 Blood Pressure 141/102 H 08/11/21 16:34 Blood Pressure Position Sitting 08/11/21 16:34 Pulse Oximetry 97 08/11/21 16:34 Oxygen Delivery Method Room Air 08/11/21 16:34 Oxygen Flow Rate 0 08/11/21 16:34 Pain Level 8 08/11/21 16:34 PAWSS Have you Been Recently Intoxicated or Drunk Within the Last 30 days?: No Have you Ever Experienced Previous Episodes of Alcohol Withdrawal?: No Have you ever Experienced Withdrawal Seizures?: No Have you ever Experienced Delirium Tremens(DT)s?: No Have you ever undergone Alcohol Rehabilitation Treatment (i.e, inpt ot outpatient treatment programs)?: No Have you ever Experienced Blackouts?: No Have you ever Combined Alcohol with other Downers within the last 90 days?: No Have you ever Combined Alcohol with any other Substance of Abuse during the last 90 days?: No Positive Blood Alcohol level on Presentation? [PCS.BAL]: No Evidence of Increased Autonomic Activity (i.e. HR>120, tremor, sweating, agitation, nausea)?: No Result: 0
[2021-08-11 17:10] LABS: Abs Immature Grans 0.01 10^3/uL (0.0-0.06); Absolute Basophil Count 0.04 10^3/uL (0.0-0.2); Absolute Eosinophil Count 0.12 10^3/uL (0.0-0.7); Absolute Monocyte Count 0.53 10^3/uL (0.1-0.8); Absolute Neutrophil Count 5.79 10^3/uL (1.2-6.7); Basophils % 0.4; Eosinophils % 1.3; HCT 48.4 % (40.0-50.0); Immature Grans % 0.1; Lymphocytes % 30.9; MCH 28.7 pg (27.0-33.0); MCHC 35.1 % (32.0-36.0); MCV 81.6 fL (80-95); MPV 10.4 fL (8.0-11.0); Monocytes % 5.6; Neutrophils % 61.7; Nucleated RBC 0 %; Platelet Count 241 10^3/uL (130-400); RBC 5.93 10^6/uL (4.36-5.78); RDW 12.2 % (11.8-14.1); RDW-SD 36.5 fL; WBC 9.39 10^3/uL (4.4-10.8)
[2021-08-11] MEDS: Omnipaque 350 MG/ML 100 ML BTL IJ (17:17)
[2021-08-11] MEDS: Normal Saline Flush 10 ML SYR IVP (17:18)
[2021-08-11 17:22] LABS: ALT 38 U/L (16-63); AST 24 U/L (15-37); Albumin 4.7 g/dL (3.4-5.0); Alkaline Phosphatase 108 U/L (46-116); Anion Gap 9.4 mmol/L (3-11); BUN 16 mg/dL (7-18); Bilirubin, Total 1.2 mg/dL (0.2-1.0); CO2 28.6 mmol/L (21.0-32.0); Calcium 9.9 mg/dL (8.5-10.1); Chloride 102 mmol/L (98-107); Glucose 100 mg/dL (74-106); Potassium 3.7 mmol/L (3.5-5.1); Sodium 140 mmol/L (136-145); Total Protein 8.5 g/dL (6.4-8.2)
--- NOTE | 2021-08-11 17:49 | DI.VRAD_ITS ---
PROCEDURE INFORMATION: Exam: CT Head With Contrast Exam date and time: 08/11/2021 4:50 PM Age: 26 years old Clinical indication: Other: RT posterior neck mass, just below the base of the skull; Mass, lump, or swelling in neck; Right and posterior TECHNIQUE: Imaging protocol: Computed tomography of the head with intravenous contrast. Radiation optimization: All CT scans at this facility use at least one of these dose optimization techniques: automated exposure control; mA and/or kV adjustment per patient size (includes targeted exams where dose is matched to clinical indication); or iterative reconstruction. Contrast material: OMNIPAQUE 350; Contrast volume: 100 ml; Contrast route: INTRAVENOUS (IV); COMPARISON: CT HEAD WO 06/12/2021 12:57 PM FINDINGS: Brain: Unremarkable white matter. No mass effect. No abnormal enhancing lesions. Cerebral ventricles: Unremarkable. No ventriculomegaly. Bones/joints: Unremarkable. No acute fracture. Paranasal sinuses: Visualized sinuses are unremarkable. No fluid levels. Mastoid air cells: Visualized mastoid air cells are well aerated. Soft tissues: Unremarkable. IMPRESSION: No acute intracranial abnormality. PROCEDURE INFORMATION: Exam: CT Neck With Contrast Exam date and time: 08/11/2021 4:50 PM Age: 26 years old Clinical indication: Other: RT posterior neck mass, just below the base of the skull; Mass, lump, or swelling in neck; Right and posterior TECHNIQUE: Imaging protocol: Computed tomography images of the neck with contrast. Radiation optimization: All CT scans at this facility use at least one of these dose optimization techniques: automated exposure control; mA and/or kV adjustment per patient size (includes targeted exams where dose is matched to clinical indication); or iterative reconstruction. Contrast material: OMNIPAQUE 350; Contrast volume: 100 ml; Contrast route: INTRAVENOUS (IV); COMPARISON: CT BRAIN NECK CTA 06/12/2021 12:17 PM FINDINGS: Nasopharynx: Unremarkable. Oropharynx: Unremarkable. No significant tonsillar enlargement. Hypopharynx: Unremarkable. Larynx: Unremarkable. Normal epiglottis. Retropharyngeal space: Unremarkable. Submandibular/Parotid glands: Normal. Glands are normal in size. Thyroid: Normal. No enlarged or calcified nodules. Lymph nodes: Enlarged right occipital lymph node measures 1.4 x 1.0 cm with mild surrounding fatty reticulation. Enlarged junctional right level 2b/5A lymph nodes with surrounding fatty reticulation measure up to 1.6 cm long axis. Trachea: Visualized trachea is unremarkable. Lungs: Unremarkable as visualized. Bones/joints: Unremarkable. No acute fracture. Soft tissues: There is mild skin thickening and subcutaneous fatty reticulation of the right posterior upper neck (see series 13, image 445, for example). IMPRESSION: Right occipital and posterior right cervical lymphadenopathy, new as compared to the prior study of 06/12/2021, with mild overlying skin thickening and subcutaneous fatty reticulation. The imaging findings are concerning for infectious or inflammatory change. Other lymphoproliferative processes are considered less likely. Dictated and Authenticated by: Rohan Long MD. Ordering:RADHA Cloud MD
== END 2021-08-11 18:12 | disposition home or self-care (01) ==
PROVIDERS: Emergency Provider Registered Nurse Emergency
DX: R59.0 Localized enlarged lymph nodes (principal); R22.1 Localized swelling, mass and lump, neck
CPT/HCPCS: 36415; 70491; 80053; 99284; 70460; 85025; 99283; J3490

== ENCOUNTER 2021-08-24 17:32 | Emergency (ER) | payer SELFPAY ==
[2021-08-24 17:41] VITALS: BP 150/92; PULSE 83; RESP 24; TEMP 36.6; O2SAT 98
--- NOTE | 2021-08-24 18:00 | RT.EKG_ITS ---
APPROVED REPORT Exam: Resting ECG Reason for Exam: dizzy Patient Location: E HR:67 bpm ECG Measurements Heart Rate 67 AXIS WA 163 P -1 QRSd 104 QRS 18 QT 409 T -1 QTc 431 Conclusion Sinus rhythm...normal P axis, V-rate 60- 99
--- NOTE | 2021-08-24 18:11 | W.ED.GENAD ---
Discharge Plan Disposition Patient Disposition: HOME Condition: Stable Discharge Details Clinical Impression: Anxiety, Shortness of breath Primary Care Provider: Vero Thomas ED Provider: Vicente Atkins Home Meds and New Rx's Prescriptions: New alprazolam [Xanax] 0.25 mg tablet 0.25 mg PO DAILY PRN (Reason: anxiety) Qty: 10 0RF Rx Instructions: use for panic attack Continued Phosphorous 250 mg tablet 1 tab PO BID Qty: 14 0RF azithromycin 500 mg tablet 500 mg PO DAILY 10 Days Qty: 10 0RF Discharge Instructions Instructions: Dyspnea (ED), Anxiety (ED) Medical Decision Making 1829 -- 26-year-old male recently diagnosed with cat scratch disease and started on azithromycin, having completed 10-day course of doxycycline recently, now with scratchy throat, dizziness and anxiety. Rash on his shoulders and back is consistent with tinea versicolor which is listed in his history. Posterior oropharynx has mild erythema with no swelling. Lungs are clear to auscultation bilaterally. Considered arrhythmia. Screening ECG was reviewed and interpreted by me: Please see report, sinus rhythm 67 bpm, normal intervals, nondiagnostic. I suspect anxiety is significantly contributing the patient's presentation today. He agrees that his anxiety at this time is significant. Plan to treat with Xanax and reassess. I did recommend diagnostic lab test to assess for electrolyte abnormality and other and patient provided informed refusal. 1950 --patient was reassessed and notes significant improvement in symptoms. Shortness of breath and anxiety now resolved. Plan will be for discharge with outpatient follow-up with his PCP. I will prescribe a short course of Xanax to be used only for severe anxiety. Patient was encouraged to continue his azithromycin as prescribed. He was encouraged to return immediately should any worsening or new concerning symptoms. Patient was informed of his elevated blood pressure and encouraged to talk with his doctor about this. HPI General Mode of arrival: ambulatory. Date/Time Provider Initiated Documentation: 08/24/21 17:52. Limitations to Documentation: no limitations. Information obtained by: patient. HPI Narrative: 26-year-old male recently diagnosed with cat scratch disease started on azithromycin having recently completed 10-day course of doxycycline for lymphadenopathy, presents with chief complaint of scratchy throat. Patient notes sensation of scratchy discomfort in her throat. He also notes feeling dizzy like he is going to pass out. He notes that he feels quite anxious. Symptoms are severe with no modifiers. No associated fever. He does note associated rash on his back and shoulders. Related Data Home Medications Medication Instructions Recorded Confirmed sodium di- and 1 tab PO BID #14 tab 08/16/21 08/24/21 monophosphate-potassium phos monobasic 250 mg tablet (Phosphorous) azithromycin 500 mg tablet 500 mg PO DAILY 10 Days #10 tab 08/22/21 08/24/21 alprazolam 0.25 mg tablet (Xanax) 0.25 mg PO DAILY PRN #10 tab 08/24/21 Previous Rx's Medication Instructions Recorded sodium di- and 1 tab PO BID #14 tab 08/16/21 monophosphate-potassium phos monobasic 250 mg tablet (Phosphorous) azithromycin 500 mg tablet 500 mg PO DAILY 10 Days #10 tab 08/22/21 alprazolam 0.25 mg tablet (Xanax) 0.25 mg PO DAILY PRN #10 tab 08/24/21 Allergies Allergy/AdvReac Type Severity Reaction Status Date / Time No Known Allergies Allergy Unverified 08/24/21 17:48 General Stated Complaint: Sorethroat URIEL: 4 Review of Systems All systems reviewed & are unremarkable except as noted in HPI and below Constitutional Constitutional: Denies fever(s) ENT Ears, Nose, Mouth, and Throat: Reports as per HPI Respiratory Respiratory: Denies cough Integumentary/Breasts Skin/Breast: Reports as per HPI Psychiatric Psychiatric: Reports anxiety PFSH All Active Problems (Updated 08/24/21 @ 19:47 by Vicente Atkins MD) Anxiety (Chronic) Shortness of breath (Acute) Cat scratch (Acute) ADHD (Acute) Acne vulgaris (Acute) Frontal headache (Acute) Dizziness (Acute) Chest pressure (Acute) Dyspepsia (Acute) Exposure to sexually transmitted disease (STD) (Acute) Tinea versicolor (Acute) Generalized anxiety disorder (Acute) Mood disorder (Acute) Insomnia, persistent (Acute) Testicular pain, left (Acute) Irregular heart beats (Acute) Dyspnea (Chronic) Depression (Chronic) Occipital lymphadenopathy (Acute) Abdominal pain, vomiting, and diarrhea (Acute) Hypophosphatemia (Acute) COVID-19 (Acute) Chronic diarrhea (Acute) Lightheadedness (Acute) Frequent PVCs (Acute) Chest pain (Acute) Medical History Ganglion cyst Right wrist Hives Insect bite Pain in right wrist Right testicular torsion Skin rash Torsion of testis, unspecified Surgical History History of orchiectomy (09/2010) Social History Smoking/Tobacco Use Status: Never Second Hand Exposure: Yes Smoking risk assessment performed?: Yes Alcohol Intake: current Alcohol Intake frequency: a few times a month Drug use: Never Substance use type: does not use Adopted: No Caregiver/Support person: No Foster care: No Household members: spouse and children Number of Children: 3 number of grandchildren: 0 Communication Needs: None Education Level: high school Do you need help understanding health information?: Never 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 Pets and animals: Yes Pets and animals: cat(s) Sexually active: Yes Do you think of yourself as: straight/heterosexual Current gender identity: male What is your relationship status?: How often do you talk on the phone with friends or family?: never How often do you get together with friends or relatives?: decline to answer Do you belong to any clubs or organized social groups?: no Panel score (0-1 are the most socially isolated patients): 1 Duration: 45-60 minutes/day Frequency: 1-2 times per week Jennifer/Sabianist: Quaker Special jennifer needs: No Seatbelt use: sometimes Helmet use: Yes Helmet use: never Drive intox or ride w/intox dump truck driver: No Do you feel safe at home: Yes Do you feel safe in your relationship?: Yes Exam Const General: cooperative, anxious and not diaphoretic Nutritional Appearance: well nourished Orientation: alert and awake [facility] Mouth: moist mucous membranes Throat: uvula midline, no peritonsillar masses, posterior oropharynx abnormal erythema (mild); Negative for no exudates, no uvular edema and other (no stridor, no trismus) Eyes Conjunctivae: normal conjunctivae Sclera: normal sclerae Neck Neck: trachea midline and supple Resp Auscultation: clear to auscultation bilaterally, no rales, no rhonchi and no wheezes Cardio Rate: regular rate and not tachycardic Rhythm: regular rhythm GI Palpation: soft, not firm, no guarding, no masses, not rigid and nontender Skin Rashes: rashes noted (shoulders and back discolored patches ) Neuro General: patient alert, patient awake, patient oriented x3 and tone normal Extrem General: no edema Psych Appearance: grossly normal Mental Status: mental status grossly normal Mood: anxious mood Affect: anxious affect Course Vital Signs Vital signs: Vital Signs Temperature 36.6 C 08/24/21 17:41 Pulse 83 08/24/21 17:41 Respiratory Rate 24 08/24/21 17:41 Blood Pressure 150/92 H 08/24/21 17:41 Pulse Oximetry 98 08/24/21 17:41 Temperature 36.6 C 08/24/21 17:41 Pulse 83 08/24/21 17:41 Respiratory Rate 24 08/24/21 17:41 Respiratory Effort 08/24/21 17:48 Blood Pressure 150/92 H 08/24/21 17:41 Blood Pressure Position Supine 08/24/21 17:41 Pulse Oximetry 98 08/24/21 17:41 Oxygen Delivery Method Room Air 08/24/21 17:41 Oxygen Flow Rate 0 08/24/21 17:41 Pain Level 8 08/24/21 17:41
[2021-08-24] MEDS: ALPRAZolam 0.25 MG TAB PO (18:19)
== END 2021-08-24 19:56 | disposition home or self-care (01) ==
PROVIDERS: Emergency Provider Student in an Organized Health Care Education/Training Program; PCP Nurse Practitioner
DX: F41.9 Anxiety disorder, unspecified (principal); R06.02 Shortness of breath; R42 Dizziness and giddiness
CPT/HCPCS: 93005; 99283; 93010

== ENCOUNTER 2021-08-30 10:56 | Outpatient (CLI) | payer SELFPAY ==
--- NOTE | 2021-08-30 10:45 | RT.EKG_ITS ---
APPROVED REPORT Exam: Resting ECG Reason for Exam: palpitations Patient Location: O HR:63 bpm ECG Measurements Heart Rate 63 AXIS NM 147 P 7 QRSd 102 QRS 8 QT 382 T 0 QTc 391 Conclusion Sinus rhythm...normal P axis, V-rate 60- 99 Normal Electrocardiogram
== END 2021-08-30 10:57 | disposition home or self-care (01) ==
LOC: DI.KIM 10:57
PROVIDERS: PCP Nurse Practitioner; Visit Provider Nurse Practitioner
DX: R00.2 Palpitations (principal)
CPT/HCPCS: 93010

== ENCOUNTER 2021-09-24 08:47 | Emergency (ER) | payer SELFPAY ==
[2021-09-24 08:54] VITALS: BP 125/72; PULSE 94; RESP 16; TEMP 37.1; O2SAT 99
--- NOTE | 2021-09-24 08:55 | W.ED.GENAD ---
Discharge Plan Disposition Patient Disposition: HOME Condition: Stable Discharge Details Clinical Impression: Flu Primary Care Provider: Vero Thomas ED Provider: Donnell Barragan Home Meds and New Rx's Prescriptions: New oseltamivir [Tamiflu] 75 mg capsule 75 mg PO BID 5 Days Qty: 10 0RF Continued alprazolam [Xanax] 0.25 mg tablet 0.25 mg PO DAILY PRN (Reason: anxiety) Qty: 20 0RF Rx Instructions: use for panic attack Discharge Instructions Instructions: Influenza (ED) Additional Instructions: Tamiflu as directed. Plenty of fluids to avoid dehydration. [id number] medications as directed for symptomatic control. Please watch for new or worsening symptoms and return to the ER for any concerns. Please contact your primary care provider to discuss your ER visit and need for outpatient reevaluation Medical Decision Making 26-year-old male, not vaccinated, non-smoker, presents to the ER for dry cough, headache, fever over the past 24 hours. Took a home negative COVID test prior to arrival. Children was seen in the ER yesterday both with viral syndromes, and his has the same symptoms. He reports that she takes Tylenol and Motrin with good relief but when the medication wears off her fever comes back. Clinically he appears well, nontoxic. Afebrile, lungs clear to auscultation, O2 sats 99% on room air. Likely have the same viral syndrome running through the house. Fever responding well to Tylenol and Motrin. Given he is afebrile, lungs are clear to auscultation, O2 sat 99% on room air, no clear indication for chest x-ray. Will obtain a fluid swab. Flu a positive, COVID and RSV negative. Discussed findings with patient. Will initiate Tamiflu. Patient has no additional questions or concerns. Standard discharge and return precautions were provided This documentation was generated using [employer] dictation system, please disregard any oddities of phrase or misspellings. Medical Records Medical records reviewed: Yes I reviewed the patient's medical records. Lab Data Lab results reviewed: Yes I reviewed the patient's lab results. Labs: Laboratory Tests Range/Units 09/24/21 09:23 COVID-19 Source Not Applicable SARS-CoV-2 (PCR) (Negative) Negative Influenza Type A (PCR) (Negative) Positive A Influenza Type B (PCR) (Negative) Negative RSV (PCR) (Negative) Negative HPI General Mode of arrival: ambulatory. Date/Time Provider Initiated Documentation: 09/24/21 08:49. Limitations to Documentation: no limitations. Information obtained by: patient. History of Present Illness 26 year old M presents to the emergency department with the chief complaint of cough, described as moderate, with intensity rated at 4. Quality is described as aching, and is localized to the chest (when coughing). Patient reports no radiation. Patient started experiencing this day(s) (1) and it has been constant. improves with No relieving factors improve symptom(s), No exacerbating factors reported . Patient notes chest pain (when coughing), cough, fever/chills and headaches. Patient did receive the following treatments prior to arrival, NSAID Related Data Home Medications Medication Instructions Recorded Confirmed alprazolam 0.25 mg tablet (Xanax) 0.25 mg PO DAILY PRN #20 tab 09/13/21 09/24/21 oseltamivir 75 mg capsule (Tamiflu) 75 mg PO BID 5 Days #10 cap 09/24/21 Previous Rx's Medication Instructions Recorded alprazolam 0.25 mg tablet (Xanax) 0.25 mg PO DAILY PRN #20 tab 09/13/21 oseltamivir 75 mg capsule (Tamiflu) 75 mg PO BID 5 Days #10 cap 09/24/21 Allergies Allergy/AdvReac Type Severity Reaction Status Date / Time No Known Allergies Allergy Unverified 09/24/21 08:59 General URIEL: 4 Review of Systems Constitutional Constitutional: Reports fever(s) and Reports headache(s) ENT Ears, Nose, Mouth, and Throat: Reports headache(s) and Denies neck pain Cardiovascular Cardiovascular: Reports chest pain (with couhing) Respiratory Respiratory: Reports cough Musculoskeletal Musculoskeletal: Denies neck pain Neurologic Neurologic: Reports headache(s) PFSH All Active Problems (Updated 09/24/21 @ 10:19 by CHRIS Holguin) Flu (Acute) Enlarged lymph node (Acute) Cat scratch (Acute) ADHD (Acute) Acne vulgaris (Acute) Frontal headache (Acute) Dizziness (Acute) Chest pressure (Acute) Dyspepsia (Acute) Exposure to sexually transmitted disease (STD) (Acute) Tinea versicolor (Acute) Generalized anxiety disorder (Acute) Mood disorder (Acute) Insomnia, persistent (Acute) Testicular pain, left (Acute) Irregular heart beats (Acute) Dyspnea (Chronic) Depression (Chronic) COVID-19 (Acute) Chronic diarrhea (Acute) Lightheadedness (Acute) Frequent PVCs (Acute) Chest pain (Acute) Medical History Ganglion cyst Right wrist Hives Insect bite Pain in right wrist Right testicular torsion Skin rash Torsion of testis, unspecified Surgical History History of orchiectomy (09/2010) Social History Smoking/Tobacco Use Status: Never Second Hand Exposure: Yes Smoking risk assessment performed?: Yes Alcohol Intake: current Alcohol Intake frequency: a few times a month Drug use: Never Substance use type: does not use Adopted: No Caregiver/Support person: No Foster care: No Household members: spouse and children Number of Children: 3 number of grandchildren: 0 Communication Needs: None Education Level: high school Do you need help understanding health information?: Never 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 Pets and animals: Yes Pets and animals: cat(s) Sexually active: Yes Do you think of yourself as: straight/heterosexual Current gender identity: male What is your relationship status?: How often do you talk on the phone with friends or family?: never How often do you get together with friends or relatives?: decline to answer Do you belong to any clubs or organized social groups?: no Panel score (0-1 are the most socially isolated patients): 1 Duration: 45-60 minutes/day Frequency: 1-2 times per week Jennifer/Lutheran: Pentecostal Special jennifer needs: No Seatbelt use: sometimes Helmet use: Yes Helmet use: never Drive intox or ride w/intox equipment driver: No Do you feel safe at home: Yes Do you feel safe in your relationship?: Yes Exam Const General: cooperative, healthy appearing, comfortable and no acute distress Orientation: alert, awake and oriented x3 HENMT Head: normal to inspection, normocephalic and atraumatic Ears: external ears normal, TM's normal bilaterally and EAC's normal Face and sinus: normal facial exam Mouth: moist mucous membranes Throat: posterior oropharynx normal Eyes General: appearance normal, both eyes and all related structures Conjunctivae: conjunctivae normal Neck Neck: normal visual inspection, full ROM, no lymphadenopathy, no meningeal signs, trachea midline, supple and nontender Resp Effort & Inspection: normal respiratory effort, able to speak in complete sentences and cough Quality of cough: dry (mild) Auscultation: clear to auscultation bilaterally Cardio Rate: regular rate Rhythm: regular rhythm GI Palpation: soft and nontender Neuro General: patient alert, patient awake, moves all extremities and no focal motor deficits Cognition: normal cognition Speech: speech normal Gait: normal gait Sensory Exam: no sensory deficits noted Psych Appearance: grossly normal Mental Status: mental status grossly normal
[2021-09-24 10:12] LABS: COVID-19 PCR Negative (Negative); Influenza B PCR Negative (Negative); RSV PCR Negative (Negative)
[2021-09-24 10:17] LABS: Influenza A PCR Positive (Negative)
== END 2021-09-24 10:27 | disposition home or self-care (01) ==
PROVIDERS: Emergency Provider Physician Assistant; PCP Nurse Practitioner
DX: J10.1 Influenza due to other identified influenza virus with other respiratory manifestations (principal); Z20.822 Contact with and (suspected) exposure to COVID-19
CPT/HCPCS: 87637; 99283

== ENCOUNTER 2021-09-27 01:25 | Emergency (ER) | payer SELFPAY ==
[2021-09-27] VITALS (7 sets, daily range): BP systolic 139–146; BP diastolic 76–93; PULSE 64–91; RESP 14–18; TEMP 37.1; O2SAT 96–100
--- NOTE | 2021-09-27 01:30 | DI.RAD_ITS ---
Exam(s) XR PORTABLE CHEST AP EXAM: XR PORTABLE CHEST AP CLINICAL HISTORY: cough. TECHNIQUE: 2D digital imaging was performed. COMPARISON: CR,XR XR CHEST 2V PA LATERAL from 03/15/2021 FINDINGS: LUNGS: Clear. No pleural abnormality seen. HEART: Normal. MEDIASTINUM: Normal. OTHER FINDINGS: None. IMPRESSION: No acute pulmonary findings. DATA REPOSITORY: RADIATION DOSE DELIVERED: Total DLP
--- NOTE | 2021-09-27 01:30 | RT.EKG_ITS ---
APPROVED REPORT Exam: Resting ECG Reason for Exam: CHEST PAIN Patient Location: E HR:78 bpm ECG Measurements Heart Rate 78 AXIS WA 145 P 14 QRSd 97 QRS 39 QT 367 T -3 QTc 419 Conclusion Sinus rhythm...normal P axis, V-rate 60- 99 ST elev, probable normal early repol pattern...ST elevation, age<55
--- NOTE | 2021-09-27 01:43 | W.ED.GENAD ---
Discharge Plan Disposition Patient Disposition: HOME Condition: Stable Discharge Details Clinical Impression: Chest pain, Flu Primary Care Provider: Vero Thomas ED Provider: Kashif Garcia Home Meds and New Rx's Prescriptions: Continued alprazolam [Xanax] 0.25 mg tablet 0.25 mg PO DAILY PRN (Reason: anxiety) Qty: 20 0RF Rx Instructions: use for panic attack Discontinued oseltamivir [Tamiflu] 75 mg capsule 75 mg PO BID 5 Days Qty: 10 0RF Discharge Instructions Instructions: Chest Pain (ED), Influenza (ED) Additional Instructions: you can take ibuprofen and acetaminophen for pain as needed follow dosing instructions on packaging take 50mg prednisone daily, your next dose would be tomorrow 09/28 if symptoms continue next week follow up with your primary care provider if you feel more ill, have severe worsening pain or difficulty breathing return to the emergency department Medical Decision Making 26 yo male who denies chronic medical problems comes in with continued cough and chest pain since being diagnosed via nasal swab on 09/24 with influenza, negative for covid. His symptoms started that day and had fevers/chills. HE was prescribed tamiflu but only took a few doses due to cost. His fevers/chills subsided but still has cough and anterior chest pain with coughing. HE arrives stable speaking in full sentences. He has intermittent dry cough. He has no leg swelling, calf tenderness, jvd. He has mild apical wheezing bialterally otherwise clear lungs, no murmurs. Suspect this is related to his influenza causing cough and musculoskeletal chest pain but will evaluate for possible myocarditis with ekg and troponin. Wells low and perc negative so doubt PE. Has no tearing back pain and normal vascular exam so doubt dissection. Will obtain cxr to evaluate for possible infiltrate though seems unlikely given fever has improved. labs unremartable and xray on my read unremarkable, awaiting vrad report. Pt stable, feels mildly better after meds and lung sounds now clear even in apices. Suspect musculoskeletal chest pain with some reactive airway disease from the influenza. Bedside u/s shows normal heart function, no pericardial effusion and normal lung sliding. Will provide patient with inhaler and 3 more days of prednisone. Advised to f/u with pcp and return precautions given Differential Diagnosis Differential Diagnosis: pleurisy, pneumonia, myocarditis Medical Records Medical records reviewed: Yes I reviewed the patient's medical records. Imaging Data Radiologic Study: Attestation: I personally reviewed and interpreted this imaging study as follows: Imaging: X-Ray Radiologist's impression: PROCEDURE INFORMATION: Exam: XR Chest Exam date and time: 09/27/2021 1:49 AM Age: 26 years old Clinical indication: Cough TECHNIQUE: Imaging protocol: XR of the chest. Views: 1 view. COMPARISON: CR XR CHEST 2V PA LATERAL 03/15/2021 6:05 PM FINDINGS: Lungs: Unremarkable. No consolidation. Pleural spaces: Unremarkable. No pleural effusion. No pneumothorax. Heart/Mediastinum: Unremarkable. No cardiomegaly. Bones/joints: Unremarkable. IMPRESSION: No acute findings. Lab Data Lab results reviewed: Yes I reviewed the patient's lab results. ECG Data Attestation: I personally reviewed and interpreted this ECG (s) as follows: Prior ECG tracings: available for review Interpretation: sinus rhythm, rate of 78, no stemi or st t wave ischemic findings HPI General Mode of arrival: ambulatory. Date/Time Provider Initiated Documentation: 09/27/21 01:26. Limitations to Documentation: no limitations. Information obtained by: patient. History of Present Illness 26 year old M presents to the emergency department with the chief complaint of cough, described as moderate, Patient started experiencing this day(s) (3) and it has been intermittent. improves with No relieving factors improve symptom(s), No exacerbating factors reported . Patient notes chest pain. Patient did receive the following treatments prior to arrival, none Related Data Home Medications Medication Instructions Recorded Confirmed alprazolam 0.25 mg tablet (Xanax) 0.25 mg PO DAILY PRN #20 tab 09/13/21 09/24/21 Previous Rx's Medication Instructions Recorded alprazolam 0.25 mg tablet (Xanax) 0.25 mg PO DAILY PRN #20 tab 09/13/21 Allergies Allergy/AdvReac Type Severity Reaction Status Date / Time No Known Allergies Allergy Unverified 09/24/21 08:59 General Stated Complaint: RespSymp URIEL: 3 Review of Systems All systems reviewed & are unremarkable except as noted in HPI and below Constitutional Constitutional: Denies weakness Eyes Eyes: Denies loss of vision ENT Ears, Nose, Mouth, and Throat: Denies change in voice Gastrointestinal Gastrointestinal: Denies abdominal pain, Denies nausea and Denies vomiting Genitourinary Genitourinary: Denies dysuria Integumentary/Breasts Skin/Breast: Denies rash Neurologic Neurologic: Denies loss of vision and Denies weakness PFSH All Active Problems (Updated 09/27/21 @ 02:14 by Kashif Garcia MD) Flu (Acute) Enlarged lymph node (Acute) Cat scratch (Acute) ADHD (Acute) Acne vulgaris (Acute) Frontal headache (Acute) Dizziness (Acute) Chest pressure (Acute) Dyspepsia (Acute) Exposure to sexually transmitted disease (STD) (Acute) Tinea versicolor (Acute) Generalized anxiety disorder (Acute) Mood disorder (Acute) Insomnia, persistent (Acute) Testicular pain, left (Acute) Irregular heart beats (Acute) Dyspnea (Chronic) Depression (Chronic) COVID-19 (Acute) Chronic diarrhea (Acute) Lightheadedness (Acute) Frequent PVCs (Acute) Chest pain (Acute) Medical History Ganglion cyst Right wrist Hives Insect bite Pain in right wrist Right testicular torsion Skin rash Torsion of testis, unspecified Surgical History History of orchiectomy (09/2010) Social History Smoking/Tobacco Use Status: Never Second Hand Exposure: Yes Smoking risk assessment performed?: Yes Alcohol Intake: current Alcohol Intake frequency: a few times a month Drug use: Never Substance use type: does not use Adopted: No Caregiver/Support person: No Foster care: No Household members: spouse and children Number of Children: 3 number of grandchildren: 0 Communication Needs: None Education Level: high school Do you need help understanding health information?: Never 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 Pets and animals: Yes Pets and animals: cat(s) Sexually active: Yes Do you think of yourself as: straight/heterosexual Current gender identity: male What is your relationship status?: How often do you talk on the phone with friends or family?: never How often do you get together with friends or relatives?: decline to answer Do you belong to any clubs or organized social groups?: no Panel score (0-1 are the most socially isolated patients): 1 Duration: 45-60 minutes/day Frequency: 1-2 times per week Jennifer/Voodoo: Adventist Special jennifer needs: No Seatbelt use: sometimes Helmet use: Yes Helmet use: never Drive intox or ride w/intox stacker driver: No Do you feel safe at home: Yes Do you feel safe in your relationship?: Yes Exam Const General: no acute distress Orientation: alert HENMT Head: normal to inspection Ears: external ears normal General nose exam: external nose normal Mouth: moist mucous membranes Eyes General: appearance normal, both eyes and all related structures Neck Neck: normal visual inspection Resp Effort & Inspection: normal respiratory effort and able to speak in complete sentences Cardio Rate: regular rate Skin General skin exam: no rashes or lesions noted Neuro General: patient alert and patient oriented x3 Extrem General: normal to inspection Psych Mental Status: mental status grossly normal Course Vital Signs Vital signs: Vital Signs Temperature 37.1 C 09/27/21 01:30 Pulse 76 09/27/21 01:30 Respiratory Rate 18 09/27/21 01:30 Blood Pressure 142/92 H 09/27/21 01:30 Pulse Oximetry 99 09/27/21 01:30 Temperature 37.1 C 09/27/21 01:30 Temperature Source Oral 09/27/21 01:30 Pulse 76 09/27/21 01:30 Respiratory Rate 18 09/27/21 01:30 Blood Pressure 142/92 H 09/27/21 01:30 Blood Pressure Position Sitting 09/27/21 01:30 Pulse Oximetry 99 09/27/21 01:30 Oxygen Delivery Method Room Air 09/27/21 01:30 Oxygen Flow Rate 0 09/27/21 01:30 Pain Level 9 09/27/21 01:30
[2021-09-27] MEDS: predniSONE 20 MG TAB 60 MG PO (01:49)
[2021-09-27] MEDS: Ibuprofen 600 MG TAB PO (01:49)
[2021-09-27 01:57] LABS: Abs Immature Grans 0.01 10^3/uL (0.0-0.06); Absolute Basophil Count 0.02 10^3/uL (0.0-0.2); Absolute Eosinophil Count 0.18 10^3/uL (0.0-0.7); Absolute Lymphocyte Count 1.87 10^3/uL (1.2-3.4); Absolute Monocyte Count 0.43 10^3/uL (0.1-0.8); Basophils % 0.4; HCT 47.7 % (40.0-50.0); HGB 16.3 g/dL (13.5-17.5); Immature Grans % 0.2; Lymphocytes % 41.5; MCH 28.7 pg (27.0-33.0); MCHC 34.2 % (32.0-36.0); MPV 10.8 fL (8.0-11.0); Monocytes % 9.5; Neutrophils % 44.4; Platelet Count 179 10^3/uL (130-400); RBC 5.68 10^6/uL (4.36-5.78); RDW-SD 39.6 fL; WBC 4.51 10^3/uL (4.4-10.8)
[2021-09-27] MEDS: Albuterol/Ipratropium 3 ML UPD VIAL UPD (02:07)
[2021-09-27 02:12] LABS: ALT 23 U/L (16-63); AST 17 U/L (15-37); Albumin 4.2 g/dL (3.4-5.0); Alkaline Phosphatase 119 U/L (46-116); Anion Gap 7.8 mmol/L (3-11); BUN 8 mg/dL (7-18); Bilirubin, Total 0.9 mg/dL (0.2-1.0); CO2 28.2 mmol/L (21.0-32.0); CREATININE 0.9 mg/dL (0.70-1.30); Calcium 9.3 mg/dL (8.5-10.1); Chloride 104 mmol/L (98-107); Glucose 95 mg/dL (74-106); Sodium 140 mmol/L (136-145); Total Protein 7.7 g/dL (6.4-8.2); Troponin I < 50 ng/L (<or=60)
[2021-09-27] MEDS: Albuterol HFA 8 GM 60 PUFF INH IH (02:44)
--- NOTE | 2021-09-27 02:55 | DI.VRAD_ITS ---
PROCEDURE INFORMATION: Exam: XR Chest Exam date and time: 09/27/2021 1:49 AM Age: 26 years old Clinical indication: Cough TECHNIQUE: Imaging protocol: XR of the chest. Views: 1 view. COMPARISON: CR XR CHEST 2V PA LATERAL 03/15/2021 6:05 PM FINDINGS: Lungs: Unremarkable. No consolidation. Pleural spaces: Unremarkable. No pleural effusion. No pneumothorax. Heart/Mediastinum: Unremarkable. No cardiomegaly. Bones/joints: Unremarkable. IMPRESSION: No acute findings. Dictated and Authenticated by: Kashif Horn MD. Ordering:PRICILA Rowland MD
[2021-09-27] MEDS: predniSONE 20 MG TAB 150 MG PO (03:07)
== END 2021-09-27 03:10 | disposition home or self-care (01) ==
LOC: ER 03:10
PROVIDERS: Emergency Provider Emergency Medicine; PCP Nurse Practitioner
DX: R07.9 Chest pain, unspecified (principal); J11.1 Influenza due to unidentified influenza virus with other respiratory manifestations; R05.9 Cough, unspecified
CPT/HCPCS: 80053; 93005; 94640; 99284; 71045; 84484; 85025; 93010; J7512; J7620

== ENCOUNTER 2021-10-30 17:49 | Emergency (ER) | payer SELFPAY ==
[2021-10-30 17:53] VITALS: BP 150/89; PULSE 73; RESP 16; TEMP 36.3; O2SAT 98
--- NOTE | 2021-10-30 17:59 | W.ED.GENAD ---
Discharge Plan Discharge Details Chief Complaint: Abd Prob Primary Care Provider: Vero Thomas ED Provider: Dennis Mendoza Home Meds and New Rx's Prescriptions: No Action alprazolam [Xanax] 0.25 mg tablet 0.25 mg PO DAILY PRN (Reason: anxiety) Qty: 20 0RF Label Comments: not taking Rx Instructions: use for panic attack Medical Decision Making Patient blood work was within normal limits. The CAT scan of the abdomen pelvis did not reveal any abnormalities. After a dose of ketorolac in the emergency department the patient's symptoms resolved. He then had another episode of mild discomfort. His abdominal exam is unchanged. He is still soft nondistended nontender. I have asked him to follow-up with his PCP for further work-up. HPI General Date/Time Provider Initiated Documentation: 10/30/21 17:50. HPI Narrative: 26-year-old presents to the emergency room for evaluation of abdominal discomfort. Patient states that he feels that his symptoms constantly hard. He points to the mid abdomen describing a bandlike pain. Pain is nonradiating chest pain. This is unassociated with any nausea no vomiting. He does state that he has 2 bowel movements a day 1 in the morning 1 week, he has noticed that his stool appears to be more flattened. He does not have any unquantified fevers no chills. He has not noticed any decrease in p.o. intake. No back pain. Patient is not a significant drinker he drinks a couple of drinks once in a while. decrease UO. severity 7/10, no radiation, constant but worse in the morning and at night. Related Data Home Medications Medication Instructions Recorded Confirmed alprazolam 0.25 mg tablet (Xanax) 0.25 mg PO DAILY PRN anxiety #20 09/13/21 10/30/21 tabs Previous Rx's Medication Instructions Recorded alprazolam 0.25 mg tablet (Xanax) 0.25 mg PO DAILY PRN anxiety #20 09/13/21 tabs Allergies Allergy/AdvReac Type Severity Reaction Status Date / Time No Known Allergies Allergy Unverified 10/30/21 17:57 General Stated Complaint: Abd Prob URIEL: 3 Review of Systems Narrative: Constitutional negative for fever chills positive for malaise, fatigue HEENT negative Cardiovascular negative Respiratory no cough no shortness of breath GI see HPI see HPI no hematuria no frequency MSK no myalgias no arthralgias Skin no rashes Psych negative Endo negative Hematological: Negative PFSH All Active Problems (Updated 10/25/21 @ 00:06 by DENISE RAMIREZ) Enlarged lymph node (Acute) Cat scratch (Acute) ADHD (Acute) Acne vulgaris (Acute) Frontal headache (Acute) Dizziness (Acute) Chest pressure (Acute) Dyspepsia (Acute) Exposure to sexually transmitted disease (STD) (Acute) Tinea versicolor (Acute) Generalized anxiety disorder (Acute) Mood disorder (Acute) Insomnia, persistent (Acute) Testicular pain, left (Acute) Irregular heart beats (Acute) Dyspnea (Chronic) Depression (Chronic) COVID-19 (Acute) Chronic diarrhea (Acute) Lightheadedness (Acute) Frequent PVCs (Acute) Chest pain (Acute) Medical History Ganglion cyst Right wrist Hives Insect bite Pain in right wrist Right testicular torsion Skin rash Torsion of testis, unspecified Surgical History History of orchiectomy (09/2010) Social History Smoking/Tobacco Use Status: Never Second Hand Exposure: Yes Smoking risk assessment performed?: Yes Alcohol Intake: current Alcohol Intake frequency: a few times a month Drug use: Never Substance use type: does not use Adopted: No Caregiver/Support person: No Foster care: No Household members: spouse and children Number of Children: 3 number of grandchildren: 0 Communication Needs: None Education Level: high school Do you need help understanding health information?: Never 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 Pets and animals: Yes Pets and animals: cat(s) Sexually active: Yes Do you think of yourself as: straight/heterosexual Current gender identity: male What is your relationship status?: How often do you talk on the phone with friends or family?: never How often do you get together with friends or relatives?: decline to answer Do you belong to any clubs or organized social groups?: no Panel score (0-1 are the most socially isolated patients): 1 Duration: 45-60 minutes/day Frequency: 1-2 times per week Jennifer/Uatsdin: Anabaptism Special jennifer needs: No Seatbelt use: sometimes Helmet use: Yes Helmet use: never Drive intox or ride w/intox driver lifter of sanitation truck: No Do you feel safe at home: Yes Do you feel safe in your relationship?: Yes Exam Narrative Exam Narrative: Awake alert oriented x3, no acute distress cooperative and pleasant PERRLA EOMI MMM anicteric Supple neck chest is clear to auscultation bilaterally Heart regular rate and rhythm murmurs Abdomen no discomfort/nondistended no peritoneal signs Back: No CVAT Skin no rashes Neuro grossly intact eXT NO EDEMA Psych normal mood and affect Const General: no acute distress Orientation: alert HENMT Head: normal to inspection Ears: external ears normal General nose exam: external nose normal Mouth: moist mucous membranes Eyes General: appearance normal, both eyes and all related structures Neck Neck: normal visual inspection Resp Effort & Inspection: normal respiratory effort and able to speak in complete sentences Cardio Rate: regular rate Skin General skin exam: no rashes or lesions noted Neuro General: patient alert and patient oriented x3 Extrem General: normal to inspection Psych Mental Status: mental status grossly normal Course Vital Signs Vital signs: Vital Signs Temperature 36.3 C L 10/30/21 17:53 Pulse 73 10/30/21 17:53 Respiratory Rate 16 10/30/21 17:53 Blood Pressure 150/89 H 10/30/21 17:53 Pulse Oximetry 98 10/30/21 17:53 Temperature 36.3 C L 10/30/21 17:53 Temperature Source Skin 10/30/21 17:53 Pulse 73 10/30/21 17:53 Respiratory Rate 16 10/30/21 17:53 Respiratory Effort 10/30/21 17:56 Blood Pressure 150/89 H 10/30/21 17:53 Blood Pressure Position Sitting 10/30/21 17:53 Pulse Oximetry 98 10/30/21 17:53 Oxygen Delivery Method Room Air 10/30/21 17:53 Oxygen Flow Rate 0 10/30/21 17:53 Pain Level 7 10/30/21 17:53
--- NOTE | 2021-10-30 18:00 | DI.CT_ITS ---
Exam(s) CT ABDOMEN PELVIS WO EXAM: CT ABDOMEN PELVIS WO CLINICAL HISTORY: abd pain TECHNIQUE: COMPARISON: CT CT ABDOMEN PELVIS W from 08/06/2021 FINDINGS: CT examination of the abdomen and pelvis was performed with oral contrast only. Images obtained through the lung bases are unremarkable. The liver appears normal with no evidence of a focal mass. Spleen is unremarkable in appearance.. Gallbladder and bile ducts are unremarkable. Pancreas is unremarkable in appearance. Adrenals appear normal bilaterally. Kidneys appear normal with no evidence of renal mass, hydronephrosis, or nephrolithiasis. Unremarkab le bladder. There is no evidence of abdominal or pelvic adenopathy. Abdominal aorta is of normal diameter and no abnormality is seen involving major visceral branches.. Appendix is normal. No evidence diverticulitis or bowel obstruction. No significant abdominal wall hernia seen. Impression: Negative CT examination of the abdomen and pelvis. RADIATION DOSE DELIVERED: 1,235.28mGy.cm Total DLP 1,235.28mGy.cm Total DLP !Error CTDIvol DATA REPOSITORY: All CT scans at this facility are submitted to the National Radiology Data Registry (NRDR) Dose Index Registry (DIR) with the [employer] (ACR). RADIATION OPTIMIZATION: All CT scans at this facility use at least one of these dose optimization te chniques: automated exposure control; mA and/or kV adjustment per patient size (includes targeted exa ms where dose is matched to clinical indication); or iterative reconstruction.
[2021-10-30] MEDS: Normal Saline 1,000 ML 1000 ML IV (18:21)
[2021-10-30] MEDS: Ketorolac 15 MG/ML VIAL IVP (18:21)
[2021-10-30 18:22] LABS: Abs Immature Grans 0.02 10^3/uL (0.0-0.06); Absolute Basophil Count 0.04 10^3/uL (0.0-0.2); Absolute Eosinophil Count 0.19 10^3/uL (0.0-0.7); Absolute Monocyte Count 0.44 10^3/uL (0.1-0.8); Absolute Neutrophil Count 3.91 10^3/uL (1.2-6.7); Basophils % 0.5; Eosinophils % 2.6; HCT 44.1 % (40.0-50.0); HGB 15.1 g/dL (13.5-17.5); Immature Grans % 0.3; MCH 28.3 pg (27.0-33.0); MCHC 34.2 % (32.0-36.0); MCV 83 fL (80-95); MPV 10.9 fL (8.0-11.0); Neutrophils % 53.6; Platelet Count 207 10^3/uL (130-400); RBC 5.33 10^6/uL (4.36-5.78); RDW 13.2 % (11.8-14.1)
[2021-10-30 18:31] LABS: ALT 21 U/L (16-63); AST 15 U/L (15-37); Albumin 4.4 g/dL (3.4-5.0); Alkaline Phosphatase 109 U/L (46-116); Anion Gap 7.1 mmol/L (3-11); BUN 16 mg/dL (7-18); Bilirubin, Total 1.1 mg/dL (0.2-1.0); CO2 29.9 mmol/L (21.0-32.0); Calcium 9.4 mg/dL (8.5-10.1); Chloride 104 mmol/L (98-107); Glucose 87 mg/dL (74-106); Lipase 60 U/L (73-393); Potassium 3.5 mmol/L (3.5-5.1); Sodium 141 mmol/L (136-145); Total Protein 7.7 g/dL (6.4-8.2)
[2021-10-30 19:22] LABS: Bilirubin Negative (Negative); Blood Negative (Negative); Clarity Clear (Clear); Glucose Negative (Negative); Ketones Negative (Negative); Leukocyte Esterase Negative (Negative); Nitrite Negative (Negative); Specific Gravity 1.015 (1.005-1.025); Urobilinogen 0.2 EU/dL (Up TO 0.2); pH 6.5 (5-8)
[2021-10-30 19:58] VITALS: BP 132/87; PULSE 60; RESP 18; TEMP 36; O2SAT 99
--- NOTE | 2021-10-30 19:59 | DI.VRAD_ITS ---
PROCEDURE INFORMATION: Exam: CT Abdomen And Pelvis Without Contrast Exam date and time: 10/30/2021 7:42 PM Age: 26 years old Clinical indication: Prior surgery; Surgery date: 6+ months; Surgery type: Orchiectomy; Patient HX: Abdominal pain, constipation TECHNIQUE: Imaging protocol: Computed tomography of the abdomen and pelvis without contrast. Radiation optimization: All CT scans at this facility use at least one of these dose optimization techniques: automated exposure control; mA and/or kV adjustment per patient size (includes targeted exams where dose is matched to clinical indication); or iterative reconstruction. Other contrast: Oral, gastroview, 25; Other technique: GI contrast given. COMPARISON: CT ABDOMEN PELVIS W 08/06/2021 9:16 AM FINDINGS: Liver: Normal. No mass. Gallbladder and bile ducts: Normal. No calcified stones. No ductal dilation. Pancreas: Normal. No ductal dilation. Spleen: Normal. No splenomegaly. Adrenal glands: Normal. No mass. Kidneys and ureters: Normal. No hydronephrosis. Stomach and bowel: Unremarkable. No obstruction. No mucosal thickening. Appendix: No evidence of appendicitis. Intraperitoneal space: Unremarkable. No free air. No significant fluid collection. Vasculature: Unremarkable. No abdominal aortic aneurysm. Lymph nodes: Unremarkable. No enlarged lymph nodes. Urinary bladder: Unremarkable as visualized. Reproductive: Status post right Orchiectomy. Bones/joints: Unremarkable. No acute fracture. Soft tissues: Unremarkable. IMPRESSION: No acute abnormality seen to account for symptoms. Dictated and Authenticated by: Jenna Tijerina MD. Ordering:SULAIMAN Collins MD
== END 2021-10-30 20:14 | disposition home or self-care (01) ==
PROVIDERS: Emergency Provider Emergency Medicine; PCP Nurse Practitioner
DX: R10.9 Unspecified abdominal pain (principal)
CPT/HCPCS: 36415; 80053; 83690; 96361; 96374; 99284; 74176; 81003; 85025; J1885

== ENCOUNTER 2021-11-10 22:52 | Emergency (ER) | payer SELFPAY ==
[2021-11-10] VITALS (13 sets, daily range): BP systolic 121–159; BP diastolic 67–95; PULSE 54–79; RESP 14–18; TEMP 36.7; O2SAT 96–98
--- NOTE | 2021-11-10 22:45 | RT.EKG_ITS ---
APPROVED REPORT Exam: Resting ECG Reason for Exam: chest pain Patient Location: E HR:67 bpm ECG Measurements Heart Rate 67 AXIS LA 154 P 5 QRSd 102 QRS -1 QT 394 T 12 QTc 415 Conclusion Sinus rhythm...normal P axis, V-rate 60- 99 There are no significant changes compared to prior EKG performed on 09/27/2021 at 01:43.
--- NOTE | 2021-11-10 23:00 | DI.RAD_ITS ---
Exam(s) XR CHEST 2V PA LATERAL EXAM: XR CHEST 2V PA LATERAL CLINICAL HISTORY: chest pain TECHNIQUE: 2D digital imaging was performed. COMPARISON: CR,XR XR PORTABLE CHEST AP from 09/27/2021 FINDINGS: MEDIASTINUM: Normal. HEART: Normal. PULMONARY VASCULATURE: Normal. LUNGS: Clear. PLEURAL SPACE: No pleural effusion or pneumothorax. BONE:Unremarkable for age. IMPRESSION: No acute abnormality. DATA REPOSITORY: RADIATION DOSE DELIVERED:
--- NOTE | 2021-11-10 23:02 | W.ED.GENAD ---
Discharge Plan Disposition Patient Disposition: STILL A PATIENT Condition: Stable Discharge Details Primary Care Provider: Vero Thomas ED Provider: Rohan Miller Kirwin Meds and New Rx's Prescriptions: No Action alprazolam [Xanax] 0.25 mg tablet 0.25 mg PO DAILY PRN (Reason: anxiety) Qty: 20 0RF Rx Instructions: use for panic attack Medical Decision Making This is a 26-year-old male, past medical history of anxiety, depression, reports history of somewhat similar chest pain episodes, pain today however today, went to bed feeling asymptomatic and awoke approximately 1 hour ago with left-sided substernal chest pain. Reports there seems to be some component of movement that makes the pain worse. He also tells me that he drank approximately 15 beers last night but no alcohol today. This does make me wonder if there could be a GI component, pancreatitis, etc. Given the PERC criteria, will not pursue a D-dimer. Clinically he appears well, nontoxic, hemodynamically stable. Plan is to obtain a cardiac work-up including lipase, give a full dose aspirin, and reassess. At time of signout to Dr. Miller no laboratory values were resulted. EKG was completed. Chest x-ray pending Medical Records Medical records reviewed: Yes I reviewed the patient's medical records. ECG Data Attestation: I personally reviewed and interpreted this ECG (s) as follows: Interpretation: Please get the report by Dr. Miller. Sinus rhythm, ventricular of 67, no STEMI. HPI General Mode of arrival: ambulatory. Date/Time Provider Initiated Documentation: 11/10/21 23:00. Limitations to Documentation: no limitations. Information obtained by: patient. History of Present Illness 26 year old M presents to the emergency department with the chief complaint of Chest pain, described as severe and similar to prior episodes, with intensity rated at 9. Quality is described as stabbing, and is localized to the chest. Patient reports no radiation. Patient started experiencing this hour(s) (1, awoke him from sleep) and it has been constant. No relieving factors improve symptom(s), Movement worsens symptoms . Patient notes no other symptoms.. Patient did receive the following treatments prior to arrival, none Related Data Home Medications Medication Instructions Recorded Confirmed alprazolam 0.25 mg tablet (Xanax) 0.25 mg PO DAILY PRN anxiety #20 09/13/21 11/10/21 tabs Previous Rx's Medication Instructions Recorded alprazolam 0.25 mg tablet (Xanax) 0.25 mg PO DAILY PRN anxiety #20 09/13/21 tabs Allergies Allergy/AdvReac Type Severity Reaction Status Date / Time No Known Allergies Allergy Unverified 11/10/21 22:59 General Stated Complaint: Chest Pain URIEL: 2 Review of Systems Constitutional Constitutional: Denies fatigue, Denies fever(s), Denies headache(s) and Denies weakness Eyes Eyes: Denies change in vision ENT Ears, Nose, Mouth, and Throat: Denies headache(s) and Denies neck pain Cardiovascular Cardiovascular: Reports chest pain and Denies dyspnea Respiratory Respiratory: Denies cough and Denies dyspnea Gastrointestinal Gastrointestinal: Reports abdominal pain, Denies nausea and Denies vomiting Genitourinary Genitourinary: Denies dysuria Musculoskeletal Musculoskeletal: Denies back pain, Denies neck pain, Denies numbness and Denies tingling Neurologic Neurologic: Denies headache(s), Denies numbness, Denies tingling and Denies weakness Psychiatric Psychiatric: Reports anxiety Endocrine Endocrine: Denies fatigue PFSH All Active Problems Abdominal pain (Acute) Enlarged lymph node (Acute) Cat scratch (Acute) ADHD (Acute) Acne vulgaris (Acute) Frontal headache (Acute) Dizziness (Acute) Chest pressure (Acute) Dyspepsia (Acute) Exposure to sexually transmitted disease (STD) (Acute) Tinea versicolor (Acute) Generalized anxiety disorder (Acute) Mood disorder (Acute) Insomnia, persistent (Acute) Testicular pain, left (Acute) Irregular heart beats (Acute) Dyspnea (Chronic) Depression (Chronic) COVID-19 (Acute) Chronic diarrhea (Acute) Lightheadedness (Acute) Frequent PVCs (Acute) Chest pain (Acute) Medical History Ganglion cyst Right wrist Hives Insect bite Pain in right wrist Right testicular torsion Skin rash Torsion of testis, unspecified Surgical History History of orchiectomy (09/2010) Social History Smoking/Tobacco Use Status: Never Second Hand Exposure: Yes Smoking risk assessment performed?: Yes Alcohol Intake: current Alcohol Intake frequency: a few times a month Drug use: Rarely Substance use type: marijuana Details: Tried a marijuana pen last week but didn't like it. 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 [employer] Pets and animals: Yes Pets and animals: cat(s) Sexually active: Yes Do you think of yourself as: straight/heterosexual Current gender identity: male What is your relationship status?: How often do you talk on the phone with friends or family?: never How often do you get together with friends or relatives?: decline to answer Do you belong to any clubs or organized social groups?: no Panel score (0-1 are the most socially isolated patients): 1 Duration: 45-60 minutes/day Frequency: 1-2 times per week Jennifer/Congregational: Yazdanism Special jennifer needs: No Seatbelt use: sometimes Helmet use: Yes Helmet use: never Drive intox or ride w/intox company driver: No Do you feel safe at home: Yes Do you feel safe in your relationship?: Yes Exam Const General: cooperative, healthy appearing, comfortable, no acute distress and anxious Orientation: alert, awake and oriented x3 HENMT Head: normal to inspection, normocephalic and atraumatic Face and sinus: normal facial exam Mouth: moist mucous membranes Eyes General: appearance normal, both eyes and all related structures Conjunctivae: conjunctivae normal Neck Neck: normal visual inspection, full ROM, trachea midline, supple and nontender Chest Chest: normal inspection of the chest Chest/axillae images: 1. Mild discomfort to palpation Resp Effort & Inspection: normal respiratory effort and able to speak in complete sentences Auscultation: clear to auscultation bilaterally Cardio Rate: regular rate Rhythm: regular rhythm GI Inspection: normal to inspection Palpation: soft, not firm, no guarding, no pulsatile masses and nontender Auscultation: normal bowel sounds Back/Spine/Pelvis Back: No back tenderness Skin Lesions: no lesions Neuro General: patient alert, patient awake, patient oriented x3, moves all extremities and no focal motor deficits Cognition: normal cognition Speech: speech normal Gait: normal gait Motor: muscle tone normal throughout Sensory Exam: no sensory deficits noted Extrem General: normal to inspection, full ROM, capillary refill normal, no pedal edema and no calf tenderness Psych Appearance: grossly normal Mental Status: mental status grossly normal Course Vital Signs Vital signs: Vital Signs Temperature 36.7 C 11/10/21 22:56 Pulse 66 11/10/21 22:56 Respiratory Rate 16 11/10/21 22:56 Blood Pressure 159/95 H 11/10/21 22:56 Pulse Oximetry 98 11/10/21 22:56 Temperature 36.7 C 11/10/21 22:56 Temperature Source Skin 11/10/21 22:56 Pulse 66 11/10/21 22:56 Respiratory Rate 16 11/10/21 22:56 Blood Pressure 159/95 H 11/10/21 22:56 Blood Pressure Position Sitting 11/10/21 22:56 Pulse Oximetry 98 11/10/21 22:56 Oxygen Delivery Method Room Air 11/10/21 22:56 Oxygen Flow Rate 0 11/10/21 22:56 Pain Level 10 11/10/21 22:56 Sign Out Sign Out Data: Sign Out Comment: Chest pain that woke him from sleep 1 hour ago. Single dose aspirin given, initiated a cardiac work-up. Patient does report 15 beers last night, did obtain a lipase as well Last updated by Donnell Barragan PA at 11/10/21 23:25
[2021-11-10 23:28] LABS: Abs Immature Grans 0.01 10^3/uL (0.0-0.06); Absolute Basophil Count 0.05 10^3/uL (0.0-0.2); Absolute Eosinophil Count 0.21 10^3/uL (0.0-0.7); Absolute Lymphocyte Count 2.87 10^3/uL (1.2-3.4); Absolute Monocyte Count 0.38 10^3/uL (0.1-0.8); Absolute Neutrophil Count 2.46 10^3/uL (1.2-6.7); Basophils % 0.8; Eosinophils % 3.5; HGB 15.3 g/dL (13.5-17.5); Immature Grans % 0.2; MCH 28.7 pg (27.0-33.0); MCHC 34.8 % (32.0-36.0); MCV 82 fL (80-95); Monocytes % 6.4; Neutrophils % 41.1; Platelet Count 201 10^3/uL (130-400); RBC 5.34 10^6/uL (4.36-5.78); RDW 12.9 % (11.8-14.1); RDW-SD 38.4 fL; WBC 5.98 10^3/uL (4.4-10.8)
--- NOTE | 2021-11-10 23:29 | ED.PROG_ITS ---
Date of service: 11/10/21 Time of Service: 23:29 Medical Decision Making Patient signed out to me after presenting with chest pain that he woke up with. Patient perks out for PE. Initial set of labs unremarkable and initial EKG unchanged from previous. Chest x-ray negative per my review and preliminary radiology review. Second EKG unchanged from first and second troponin remains negative. Pain is reproducible along the left sternal border and likely rest related to costochondritis. Can be discharged to follow-up with primary care next week. Return precautions provided. Lab Data Lab results reviewed: Yes I reviewed the patient's lab results. Lab results narrative: No significant abnormality ECG Data Attestation: I personally reviewed and interpreted this ECG (s) as follows: Prior ECG tracings: available for review Interpretation: No change Exam Narrative Exam Narrative: Const: WDWN male in NAD. HEENT: NC/AT. Normal facial exam. Eyes: Normal conjunctiva and sclera. Neck: Supple. Trachea midline. Lungs: Normal respiratory effort. Chest wall tender along the left sternal border. Neuro: A+O x 3. Normal speech, mentation, gait. Cranial nerves II - XII grossly intact. No gross motor or sensory deficit. Ext: No C/C/E. Skin: Warm and dry without rash. Sign Out Sign Out Data: Sign Out Comment: Chest pain that woke him from sleep 1 hour ago. Single dose aspirin given, initiated a cardiac work-up. Patient does report 15 beers last night, did obtain a lipase as well Last updated by Donnell Barragan PA at 11/10/21 23:25 Discharge Plan Disposition Patient Disposition: HOME Condition: Good Discharge Details Clinical Impression: Chest pain Primary Care Provider: Vero Thomas ED Provider: Rohan Miller Home Meds and New Rx's Prescriptions: Continued alprazolam [Xanax] 0.25 mg tablet 0.25 mg PO DAILY PRN (Reason: anxiety) Qty: 20 0RF Rx Instructions: use for panic attack Discharge Instructions Instructions: Chest Pain (ED) Additional Instructions: You were seen in the ED for chest pain. Your laboratory studies, EKGs, chest x- ray and physical exam are reassuring. Pain appears to be related to musculoskeletal chest wall pain and is likely to improve with use of ibuprofen over the next couple of days. Follow-up with primary care next week. Return to ED for fever, new or worsening chest pain, shortness of breath, other concerns Referrals: Vero Thomas NP [Primary Care Provider] -
[2021-11-10] MEDS: Aspirin 81 MG CHEW 324 MG CH (23:31)
[2021-11-10 23:41] LABS: ALT 22 U/L (16-63); AST 16 U/L (15-37); Albumin 4.2 g/dL (3.4-5.0); Alkaline Phosphatase 104 U/L (46-116); Anion Gap 8.7 mmol/L (3-11); BUN 19 mg/dL (7-18); Bilirubin, Total 1.1 mg/dL (0.2-1.0); CO2 29.3 mmol/L (21.0-32.0); CREATININE 1.1 mg/dL (0.70-1.30); Calcium 9.4 mg/dL (8.5-10.1); Chloride 103 mmol/L (98-107); Glucose 127 mg/dL (74-106); Lipase 60 U/L (73-393); Magnesium 2.1 mg/dL (1.8-2.4); Potassium 3.8 mmol/L (3.5-5.1); Sodium 141 mmol/L (136-145); Total Protein 7.3 g/dL (6.4-8.2); Troponin I < 50 ng/L (<or=60)
[2021-11-11] VITALS (32 sets, daily range): BP systolic 119–144; BP diastolic 57–79; PULSE 46–74; RESP 12–23; TEMP 36.7; O2SAT 96–100
--- NOTE | 2021-11-11 00:45 | DI.VRAD_ITS ---
PROCEDURE INFORMATION: Exam: XR Chest Exam date and time: 11/10/2021 11:54 PM Age: 26 years old Clinical indication: Other: Chest pain TECHNIQUE: Imaging protocol: XR of the chest. Views: 2 views. COMPARISON: XR PORTABLE CHEST AP 09/27/2021 1:49 AM FINDINGS: Tubes, catheters and devices: Monitoring wires noted. Lungs: Unremarkable. No consolidation. Pleural spaces: Unremarkable. No pleural effusion. No pneumothorax. Heart/Mediastinum: Unremarkable. No cardiomegaly. Bones/joints: Unremarkable. IMPRESSION: No acute cardiopulmonary abnormality. Dictated and Authenticated by: Kashif Amanda MD. Ordering:JULIANA Jacobo MD
--- NOTE | 2021-11-11 02:15 | RT.EKG_ITS ---
APPROVED REPORT Exam: Resting ECG Reason for Exam: Chest pain Patient Location: E HR:52 bpm ECG Measurements Heart Rate 52 AXIS UT 152 P -5 QRSd 104 QRS 11 QT 412 T -1 QTc 383 Conclusion Slow sinus arrhythmia...V-rate 42- 66, mean< 60 Normal [place] There are no significant changes compared to prior EKG performed on 11/10/2021 at 23:00.
[2021-11-11 02:45] LABS: Troponin I < 50 ng/L (<or=60)
== END 2021-11-11 03:09 | disposition home or self-care (01) ==
PROVIDERS: Physician Assistant; Emergency Provider Emergency Medicine; PCP Nurse Practitioner
DX: R07.9 Chest pain, unspecified (principal)
CPT/HCPCS: 80053; 80307; 83690; 93005; 99283; 71046; 83735; 84484; 85025; 93010

== ENCOUNTER 2021-11-20 00:12 | Emergency (ER) | payer SELFPAY ==
[2021-11-20 00:17] VITALS: BP 125/99; PULSE 81; RESP 16; TEMP 36.6; O2SAT 99
--- NOTE | 2021-11-20 00:44 | ED.GENADUL_ITS ---
Discharge Plan Disposition Patient Disposition: HOME Condition: Stable Discharge Details Chief Complaint: Sorethroat Clinical Impression: Sore throat Primary Care Provider: Vero Thomas ED Provider: Efrem Burgess Home Meds and New Rx's Prescriptions: No Action alprazolam [Xanax] 0.25 mg tablet 0.25 mg PO DAILY PRN (Reason: anxiety) Qty: 20 0RF Rx Instructions: use for panic attack Discharge Instructions Instructions: Pharyngitis (ED) Additional Instructions: Please follow-up with your primary care physician. [facility] he develop worsening symptoms such as shortness of breath worsening cough fevers chills trouble speaking trouble swallowing or any other abnormal symptoms. Medical Decision Making 26-year-old male presents with several days of sore throat nasal congestion ear pressure. Erythema to oropharynx without exudate. Normal speech, tolerating secretions, nontoxic afebrile. No respiratory distress. Likely viral pharyngitis versus strep pharyngitis low suspicion for pneumonia. Ear pressure likely related to blocked eustachian tubes. TMs unremarkable bilaterally. No evidence of otitis media. Trial of dexamethasone, continue symptomatic treatment, offered chest x-ray given fever 1 to 2 days ago as well as cough bringing up dark sputum however patient is feeling better from a respiratory standpoint and does not want a wait for an x-ray at this time. Patient comfortable following symptoms at home and returning if things are worsening. HPI General Date/Time Provider Initiated Documentation: 11/20/21 00:36 . HPI Narrative: 26-year-old male denies past medical history presents with sore throat and cough for the past several days, fever 1 to 2 days ago that has resolved, no shortness of breath, endorses nasal congestion and ear pressure. Has tested negative for COVID recently. Related Data Home Medications Medication Instructions Recorded Confirmed alprazolam 0.25 mg tablet (Xanax) 0.25 mg PO DAILY PRN anxiety #20 09/13/21 11/20/21 tabs Previous Rx's Medication Instructions Recorded alprazolam 0.25 mg tablet (Xanax) 0.25 mg PO DAILY PRN anxiety #20 09/13/21 tabs Allergies Allergy/AdvReac Type Severity Reaction Status Date / Time No Known Allergies Allergy Unverified 11/20/21 00:20 General Stated Complaint: Sorethroat URIEL: 4 Review of Systems Narrative: Review of Systems Constitutional: negative Eyes: negative ENT: Sore throat Cardiovascular: negative Respiratory: Cough Gastrointestinal: negative : negative Musculoskeletal: negative Skin: negative Neurologic: negative Psych: negative PFSH All Active Problems (Updated 11/20/21 @ 00:50 by Efrem Burgess MD) Abdominal pain (Acute) Sore throat (Acute) Enlarged lymph node (Acute) Cat scratch (Acute) ADHD (Acute) Acne vulgaris (Acute) Frontal headache (Acute) Dizziness (Acute) Chest pressure (Acute) Dyspepsia (Acute) Exposure to sexually transmitted disease (STD) (Acute) Tinea versicolor (Acute) Generalized anxiety disorder (Acute) Mood disorder (Acute) Insomnia, persistent (Acute) Testicular pain, left (Acute) Irregular heart beats (Acute) Dyspnea (Chronic) Depression (Chronic) COVID-19 (Acute) Chronic diarrhea (Acute) Lightheadedness (Acute) Frequent PVCs (Acute) Chest pain (Acute) Medical History Ganglion cyst Right wrist Hives Insect bite Pain in right wrist Right testicular torsion Skin rash Torsion of testis, unspecified Surgical History History of orchiectomy (09/2010) Social History Smoking/Tobacco Use Status: Never Second Hand Exposure: Yes Smoking risk assessment performed?: Yes Alcohol Intake: current Alcohol Intake frequency: 0-2 drinks per day Drug use: Rarely Substance use type: does not use Details: Tried a marijuana pen last week but didn't like it. 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 Pets and animals: Yes Pets and animals: cat(s) Sexually active: Yes Do you think of yourself as: straight/heterosexual Current gender identity: male What is your relationship status?: How often do you talk on the phone with friends or family?: never How often do you get together with friends or relatives?: decline to answer Do you belong to any clubs or organized social groups?: no Panel score (0-1 are the most socially isolated patients): 1 Duration: 45-60 minutes/day Frequency: 1-2 times per week Jennifer/Taoist: [employer] Special jennifer needs: No Seatbelt use: sometimes Helmet use: Yes Helmet use: never Drive intox or ride w/intox funeral car driver: No Do you feel safe at home: Yes Do you feel safe in your relationship?: Yes Exam Narrative Exam Narrative: Physical Examination General: alert, awake, cooperative, resting comfortably, no acute distress HEENT: normocephalic, atraumatic; PERRL, EOM intact, conjunctiva normal; no nasa l discharge; moist mucous membranes, normal voice, no stridor, no drooling, mild erythema to posterior oropharynx without exudate Neck: supple, trachea midline; full ROM Chest: normal to inspection Respiratory: normal respiratory effort, speaking in full sentences, clear to auscultation, no wheezing, rales or rhonchi Cardiac: regular rate, regular rhythm, S1S2 intact, no murmurs rubs or gallops GI: abdomen soft, non-tender, non-distended; no palpable mass or hepatosplenomegaly Skin: no lesions, rashes or trauma appreciated Neuro: AAOx3, normal speech, moving all extremities Psych: Appropriate mood and affect Course Vital Signs Vital signs: Vital Signs Temperature 36.6 C 11/20/21 00:17 Pulse 81 11/20/21 00:17 Respiratory Rate 16 11/20/21 00:17 Blood Pressure 125/99 H 11/20/21 00:17 Pulse Oximetry 99 11/20/21 00:17 Temperature 36.6 C 11/20/21 00:17 Temperature Source Oral 11/20/21 00:17 Pulse 81 11/20/21 00:17 Respiratory Rate 16 11/20/21 00:17 Respiratory Effort Non-Labored 11/20/21 00:21 Blood Pressure 125/99 H 11/20/21 00:17 Pulse Oximetry 99 11/20/21 00:17 Pain Level 9 11/20/21 00:17 Lab/Test Results Lab/Test Results: 11/20/21 00:21 Tonsil - Not Specified Group A Streptococcus Culture - Pending POC Strep Test-BRITTANEY(Rapid) Start: 11/20/21 00:23 Freq: .Rapid Strep Test Status: Active Protocol: Document 11/20/21 00:26 [facility] (Rec: 11/20/21 00:26 [facility] [id number]) Strep test-BRITTANEY(Rapid)-POC POC-Strep test-BRITTANEY (Rapid) Negative POC-Strep test-BRITTANEY (Rapid) Negative
[2021-11-20] MEDS: Dexamethasone 10 MG/ML VIAL IVP (00:49)
== END 2021-11-20 00:54 | disposition home or self-care (01) ==
PROVIDERS: Emergency Provider Emergency Medicine; PCP Nurse Practitioner
DX: K02.9 Dental caries, unspecified (principal)
CPT/HCPCS: 87880; 99283; 87081; J1100

== ENCOUNTER 2021-11-22 09:20 | Emergency (ER) | payer SELFPAY | END 2021-11-22 10:46 | disposition home or self-care (01) | LOC: ER 14:48 | PROVIDERS: PCP Nurse Practitioner | DX: Z53.1 Procedure and treatment not carried out because of patient's decision for reasons of belief and group pressure (principal) ==

== ENCOUNTER 2021-12-12 18:54 | Emergency (ER) | payer SELFPAY ==
[2021-12-12 18:56] VITALS: PULSE 86; RESP 18; TEMP 36.6; O2SAT 99
--- NOTE | 2021-12-12 19:48 | ED.GENADUL_ITS ---
Discharge Plan Disposition Patient Disposition: HOME Condition: Stable Discharge Details Clinical Impression: Laceration of thumb, right Primary Care Provider: Vero Thomas ED Provider: Donnell Barragan Home Meds and New Rx's Prescriptions: Continued alprazolam [Xanax] 0.25 mg tablet 0.25 mg PO DAILY PRN (Reason: anxiety) Qty: 20 0RF Rx Instructions: use for panic attack Discharge Instructions Instructions: Laceration (ED) Additional Instructions: Keep the laceration clean and dry, you may change the antibiotic dressing daily. Watch for new or worsening and return to the ER for any concerns. Medical Decision Making 26-year-old gentleman, [id number], presents for a right thumb laceration he sustained this morning around 10:00 at work while sharpening a chain saw blade. Reports bleeding is under control. He denies any other injury. Reports the pain is mild. On his drive home which is approximately 2 hours he was gripping the steering wheel and he states that his thumb had an altered sensation but that has improved now that he is no longer driving. Neuro, vascular, tendon intact. Laceration does not require approximation. Will update tetanus status. Thumb to be thoroughly cleaned and appropriately dressed with antibiotic dressing. Standard discharge and return precautions were provided. Patient understands, is agreeable to this plan, and has no additional questions or concerns upon discharge. This documentation was generated using wishkickeration system, please disregard any oddities of phrase or misspellings. Medical Records Medical records reviewed: Yes I reviewed the patient's medical records. HPI General Mode of arrival: ambulatory . Date/Time Provider Initiated Documentation: 12/12/21 18:59 . Limitations to Documentation: no limitations . Information obtained by: patient . History of Present Illness 26 year old M presents to the emergency department with the chief complaint of R thumb lac, described as mild, with intensity rated at 2. Quality is described as aching, and is localized to the right and upper extremity. Patient reports no radiation. Patient started experiencing this hour(s) (9) and it has been constant. No relieving factors improve symptom(s), Movement worsens symptoms . Patient notes no other symptoms.. Patient did receive the following treatments prior to arrival, none Related Data Home Medications Medication Instructions Recorded Confirmed alprazolam 0.25 mg tablet (Xanax) 0.25 mg PO DAILY PRN anxiety #20 09/13/21 12/12/21 tabs Previous Rx's Medication Instructions Recorded alprazolam 0.25 mg tablet (Xanax) 0.25 mg PO DAILY PRN anxiety #20 09/13/21 tabs Allergies Allergy/AdvReac Type Severity Reaction Status Date / Time No Known Allergies Allergy Unverified 12/12/21 19:03 General Stated Complaint: Laceration URIEL: 4 Review of Systems Constitutional Constitutional: Denies fever(s) and Denies weakness Musculoskeletal Musculoskeletal: Denies deformity, Denies numbness, Reports stiffness and Reports tingling Integumentary/Breasts Skin/Breast: Denies erythema Neurologic Neurologic: Denies numbness, Reports tingling and Denies weakness PFSH All Active Problems Sore throat (Acute) Laceration of thumb, right (Acute) Enlarged lymph node (Acute) Cat scratch (Acute) ADHD (Acute) Acne vulgaris (Acute) Frontal headache (Acute) Dizziness (Acute) Chest pressure (Acute) Dyspepsia (Acute) Exposure to sexually transmitted disease (STD) (Acute) Tinea versicolor (Acute) Generalized anxiety disorder (Acute) Mood disorder (Acute) Insomnia, persistent (Acute) Testicular pain, left (Acute) Irregular heart beats (Acute) Dyspnea (Chronic) Depression (Chronic) COVID-19 (Acute) Chronic diarrhea (Acute) Lightheadedness (Acute) Frequent PVCs (Acute) Chest pain (Acute) Medical History Ganglion cyst Right wrist Hives Insect bite Pain in right wrist Right testicular torsion Skin rash Torsion of testis, unspecified Surgical History History of orchiectomy (09/2010) Social History Smoking/Tobacco Use Status: Never Second Hand Exposure: Yes Smoking risk assessment performed?: Yes Alcohol Intake: current Alcohol Intake frequency: 0-2 drinks per day Drug use: Rarely Substance use type: does not use Details: Tried a marijuana pen last week but didn't like it. 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 Pets and animals: Yes Pets and animals: cat(s) Sexually active: Yes Do you think of yourself as: straight/heterosexual Current gender identity: male What is your relationship status?: How often do you talk on the phone with friends or family?: never How often do you get together with friends or relatives?: decline to answer Do you belong to any clubs or organized social groups?: no Panel score (0-1 are the most socially isolated patients): 1 Duration: 45-60 minutes/day Frequency: 1-2 times per week Jennifer/Yarsanism: Rastafarian Special jennifer needs: No Seatbelt use: sometimes Helmet use: Yes Helmet use: never Drive intox or ride w/intox automobile drivers: No Do you feel safe at home: Yes Do you feel safe in your relationship?: Yes Exam Const General: cooperative, healthy appearing, comfortable and no acute distress Orientation: alert and awake [facility] Head: normal to inspection, normocephalic and atraumatic Eyes General: appearance normal, both eyes and all related structures Conjunctivae: conjunctivae normal Neck Neck: normal visual inspection, trachea midline and supple Resp Effort & Inspection: normal respiratory effort and able to speak in complete sentences Cardio Rate: regular rate Rhythm: regular rhythm Skin General skin exam: no rashes or lesions noted Neuro General: patient alert, patient awake, moves all extremities and no focal motor deficits Cognition: normal cognition Speech: speech normal Gait: normal gait Motor: muscle tone normal throughout Sensory Exam: no sensory deficits noted Extrem General: full ROM and capillary refill normal Hand/finger images: 1. Right thumb with a 0.75 cm superficial well approximated laceration. No bleeding or tenderness. Neuro, vascular, tendon intact. 5 out of 5 strength. Normal capillary refill. Psych Appearance: grossly normal Mental Status: mental status grossly normal Course Vital Signs Vital signs: Vital Signs Temperature 36.6 C 12/12/21 18:56 Pulse 86 12/12/21 18:56 Respiratory Rate 18 12/12/21 18:56 Pulse Oximetry 99 12/12/21 18:56 Temperature 36.6 C 12/12/21 18:56 Temperature Source Skin 12/12/21 18:56 Pulse 86 12/12/21 18:56 Respiratory Rate 18 12/12/21 18:56 Respiratory Effort 12/12/21 19:05 Pulse Oximetry 99 12/12/21 18:56 Oxygen Delivery Method Room Air 12/12/21 18:56 Oxygen Flow Rate 0 12/12/21 18:56 Pain Level 0 12/12/21 18:56
== END 2021-12-12 20:15 | disposition home or self-care (01) ==
PROVIDERS: Emergency Provider Physician Assistant; PCP Nurse Practitioner
DX: S61.011A Laceration without foreign body of right thumb without damage to nail, initial encounter (principal); Z23 Encounter for immunization; W29.3XXA Contact with powered garden and outdoor hand tools and machinery, initial encounter; Y93.89 Activity, other specified; Y99.0 Civilian activity done for income or pay; Z77.22 Contact with and (suspected) exposure to environmental tobacco smoke (acute) (chronic)
CPT/HCPCS: 90471; 99281; 99282

== ENCOUNTER 2022-02-12 17:41 | Emergency (ER) | payer SELFPAY ==
--- NOTE | 2022-02-12 17:45 | DI.RAD_ITS ---
Exam(s) XR CHEST 2V PA LATERAL EXAM: XR CHEST 2V PA LATERAL CLINICAL HISTORY: cough, r/o pneumonia. TECHNIQUE: 2D digital imaging was performed. COMPARISON: Prior chest x-ray 11/10/2021. FINDINGS: 2 views: Heart size is normal. The mediastinum is not widened. Lungs are clear. No infiltrates nor pleural effusions. IMPRESSION: No acute pulmonary findings. DATA REPOSITORY: RADIATION DOSE DELIVERED:
[2022-02-12 17:46] VITALS: BP 129/79; PULSE 70; RESP 18; TEMP 36.8; O2SAT 99
--- NOTE | 2022-02-12 18:15 | DI.VRAD_ITS ---
PROCEDURE INFORMATION: Exam: XR Chest Exam date and time: 02/12/2022 6:06 PM Age: 27 years old Clinical indication: Patient HX: Cough, R/O pneumonia TECHNIQUE: Imaging protocol: Radiologic exam of the chest. Views: 2 views. COMPARISON: CR XR CHEST 2V PA LATERAL 11/10/2021 11:54 PM FINDINGS: Lungs: Unremarkable. No consolidation. Pleural spaces: Unremarkable. No pleural effusion. No pneumothorax. Heart/Mediastinum: Unremarkable. No cardiomegaly. Bones/joints: Unremarkable. IMPRESSION: No acute findings. Dictated and Authenticated by: Benjamín Payan MD. Ordering:NIKKI Nowak MD
--- NOTE | 2022-02-12 19:13 | ED.GENADUL_ITS ---
Discharge Plan Disposition Patient Disposition: HOME Condition: Improving Discharge Details Clinical Impression: Acute bronchitis Primary Care Provider: Vero Thomas ED Provider: She Lara Home Meds and New Rx's Prescriptions: New prednisone 20 mg tablet See Rx Instructions .ROUTE .COMPLEX Qty: 12 0RF Rx Instructions: Take 3 tabs daily for 2 days, then 2 tabs daily for 2 days, then 1 tab daily for 2 days benzonatate 100 mg capsule 100 mg PO TID PRN (Reason: cough) Qty: 10 0RF Discharge Instructions Instructions: Acute Bronchitis (ED) Additional Instructions: Your chest x-ray today showed no evidence of pneumonia. Your symptoms may be secondary to a viral infection such as bronchitis. Your symptoms could also be due to allergies. A prescription for steroids and a cough medication Tessalon Perles have been sent electronically to your pharmacy. Use the albuterol inhaler as needed and directed for cough and/or shortness of breath. You can also try an hfea-ocy-kmaevel allergy medication such as Zyrtec, Anisa or Claritin or an svws-obx-[id number] medication used for heartburn or GERD such as Prilosec or Pepcid as allergies or GERD can be associated with chronic cough. You have been placed on care management list to arrange for a follow-up appointment with the primary care doctor to establish care and for reevaluation. Discharge Data Discharge Date/Time-TO BE ENTERED AT DEPARTURE: 02/12/22 19:39 Discharge Physician: She Lara Medical Decision Making 27-year-old male who presents to the ED with a complaint of chest congestion and productive cough for the past 3 weeks with increasing shortness of breath. Vitals within normal limits. He has diminished breath sounds throughout but no wheezing or rhonchi. Patient referred for chest x-ray on arrival which was un remarkable. As he has report of mostly productive cough which was noted on exam, and has normal heart rate and oxygen saturation, history and presentation does not appear consistent with ACS, PE or dissection. Discussed with patient at length that differential diagnosis includes bronchitis, allergies, GERD. He was given a nebulizer treatment and a dose of oral steroids and symptoms improved. Discussed that suspect his presentation may be due to bronchitis. A prescription for prednisone and Tessalon Perles sent electronically to his pharmacy. He was given an albuterol inhaler to go. He is placed on care management list to arrange for follow-up appointment with a primary care doctor to establish care for reevaluation. Usual and customary return precautions given prior to discharge. Medical Records Medical records reviewed: Yes I reviewed the patient's medical records. Imaging Data Radiologic Study: Radiologist's impression: XR Chest Exam date and time: 02/12/2022 6:06 PM Age: 27 years old Clinical indication: Patient HX: Cough, R/O pneumonia TECHNIQUE: Imaging protocol: Radiologic exam of the chest. Views: 2 views. COMPARISON: CR XR CHEST 2V PA LATERAL 11/10/2021 11:54 PM FINDINGS: Lungs: Unremarkable. No consolidation. Pleural spaces: Unremarkable. No pleural effusion. No pneumothorax. Heart/Mediastinum: Unremarkable. No cardiomegaly. Bones/joints: Unremarkable. IMPRESSION: No acute findings. HPI General Mode of arrival: ambulatory . Date/Time Provider Initiated Documentation: 02/12/22 17:46 . Limitations to Documentation: no limitations . Information obtained by: patient . HPI Narrative: Patient is a 27-year-old male who is a non-smoker with history of COVID-19 in August 2021 who is unvaccinated for COVID presents with cough and shortness of breath for the past 3 weeks, worse today. Patient states his symptoms started with a sore throat which is since resolved. He states his cough is mainly productive but has been unable to cough up any sputum and mainly feels congestion in his chest. He states he has felt more fatigued recently and today while working outside felt more short of breath after coughing. He admits to chest tightness that occurs with coughing at times. He denies any fever, abdominal pain, vomiting, diarrhea, leg pain or swelling, recent travel or recent surgeries. He states he has been taking onjo-jlx-[id number] TheraFlu without relief. He states he took an at home COVID test 2 days ago which was negative. Related Data Home Medications Medication Instructions Recorded Confirmed benzonatate 100 mg capsule 100 mg PO TID PRN cough #10 caps 02/12/22 prednisone 20 mg tablet See Rx Instructions .Route 02/12/22 .COMPLEX #12 tabs Previous Rx's Medication Instructions Recorded benzonatate 100 mg capsule 100 mg PO TID PRN cough #10 caps 02/12/22 prednisone 20 mg tablet See Rx Instructions .Route 02/12/22 .COMPLEX #12 tabs Allergies Allergy/AdvReac Type Severity Reaction Status Date / Time No Known Allergies Allergy Unverified 02/12/22 17:50 General Stated Complaint: RespSymp URIEL: 3 Review of Systems All systems reviewed & are unremarkable except as noted in HPI and below Constitutional Constitutional: Reports as per HPI, Denies chills and Denies fever(s) Eyes Eyes: Denies blurry vision ENT Ears, Nose, Mouth, and Throat: Denies dizziness, Denies sore throat and Denies throat swelling Cardiovascular Cardiovascular: Denies chest pain and Reports dyspnea Respiratory Respiratory: Reports cough and Reports dyspnea Gastrointestinal Gastrointestinal: Denies abdominal pain, Denies diarrhea and Denies vomiting Genitourinary Genitourinary: Denies hematuria and Denies dysuria Musculoskeletal Musculoskeletal: Denies back pain and Denies numbness Integumentary/Breasts Skin/Breast: Denies lesions and Denies rash Neurologic Neurologic: Denies dizziness, Denies localized weakness and Denies numbness Allergic/Immunologic Allergic/Immunologic: Denies throat swelling PFSH All Active Problems (Updated 02/12/22 @ 19:21 by She Lara DO) Acute bronchitis (Acute) Enlarged lymph node (Acute) Cat scratch (Acute) ADHD (Acute) Acne vulgaris (Acute) Frontal headache (Acute) Dizziness (Acute) Chest pressure (Acute) Dyspepsia (Acute) Exposure to sexually transmitted disease (STD) (Acute) Tinea versicolor (Acute) Generalized anxiety disorder (Acute) Mood disorder (Acute) Insomnia, persistent (Acute) Testicular pain, left (Acute) Irregular heart beats (Acute) Dyspnea (Chronic) Depression (Chronic) COVID-19 (Acute) Chronic diarrhea (Acute) Lightheadedness (Acute) Frequent PVCs (Acute) Chest pain (Acute) Medical History Ganglion cyst Right wrist Hives Insect bite Pain in right wrist Right testicular torsion Skin rash Torsion of testis, unspecified Surgical History History of orchiectomy (09/2010) Social History Smoking/Tobacco Use Status: Never Second Hand Exposure: Yes Smoking risk assessment performed?: Yes Alcohol Intake: current Alcohol Intake frequency: 0-2 drinks per day Alcohol type: beer Drug use: Rarely Substance use type: does not use Details: Tried a marijuana pen last week but didn't like it. 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 Pets and animals: Yes Pets and animals: cat(s) Sexually active: Yes Do you think of yourself as: straight/heterosexual Current gender identity: male What is your relationship status?: How often do you talk on the phone with friends or family?: never How often do you get together with friends or relatives?: decline to answer Do you belong to any clubs or organized social groups?: no Panel score (0-1 are the most socially isolated patients): 1 Duration: 45-60 minutes/day Frequency: 1-2 times per week Jennifer/Jewish: Jain Special jennifer needs: No Seatbelt use: sometimes Helmet use: Yes Helmet use: never Drive intox or ride w/intox driver license agent: No Do you feel safe at home: Yes Do you feel safe in your relationship?: Yes Exam Const General: cooperative, healthy appearing and no acute distress Orientation: alert, awake and oriented x3 HENMT Head: normal to inspection Mouth: oral mucosae normal Eyes General: appearance normal, both eyes and all related structures Neck Neck: normal visual inspection Resp Effort & Inspection: normal respiratory effort and able to speak in complete sentences Auscultation: diminished lung sounds bilaterally throughout, no rhonchi and no wheezes Cardio Rate: regular rate GI Palpation: soft and nontender Skin General skin exam: no rashes or lesions noted Neuro General: patient alert, patient awake and patient oriented x3 Motor: muscle tone normal throughout Extrem General: normal to inspection and full ROM Psych Appearance: grossly normal Affect: normal affect Course Vital Signs Vital signs: Vital Signs Temperature 98.2 F 02/12/22 17:46 Pulse 70 02/12/22 17:46 Respiratory Rate 18 02/12/22 17:46 Blood Pressure 129/79 02/12/22 17:46 Pulse Oximetry 99 02/12/22 17:46 Temperature 98.2 F 02/12/22 17:46 Temperature Source Temporal Artery Scan 02/12/22 17:46 Pulse 70 02/12/22 17:46 Respiratory Rate 18 02/12/22 17:46 Respiratory Effort Non-Labored 02/12/22 17:51 Respiratory Depth Normal 02/12/22 17:51 Blood Pressure 129/79 02/12/22 17:46 Blood Pressure Position Sitting 02/12/22 17:46 Pulse Oximetry 99 02/12/22 17:46 Pain Level 0 02/12/22 17:46 PAWSS Have you Been Recently Intoxicated or Drunk Within the Last 30 days?: Yes Have you Ever Experienced Previous Episodes of Alcohol Withdrawal?: No Have you ever Experienced Withdrawal Seizures?: No Have you ever Experienced Delirium Tremens(DT)s?: No Have you ever undergone Alcohol Rehabilitation Treatment (i.e, inpt ot outpatient treatment programs)?: No Have you ever Experienced Blackouts?: No Have you ever Combined Alcohol with other Downers within the last 90 days?: No Have you ever Combined Alcohol with any other Substance of Abuse during the last 90 days?: No Positive Blood Alcohol level on Presentation? [PCS.BAL]: No Evidence of Increased Autonomic Activity (i.e. HR>120, tremor, sweating, agitation, nausea)?: No Result: 1
[2022-02-12 19:20] VITALS: O2SAT 98
[2022-02-12] MEDS: predniSONE 20 MG TAB 60 MG PO (19:20)
[2022-02-12] MEDS: Albuterol/Ipratropium 3 ML UPD VIAL UPD (19:20)
[2022-02-12] MEDS: Albuterol HFA 8 GM 60 PUFF INH IH (19:39)
[2022-02-12] MEDS: predniSONE 20 MG TAB 120 MG PO (19:39)
[2022-02-12] MEDS: Benzonatate 100 MG CAP 300 MG PO (19:39)
[2022-02-12] MEDS: Inhaler, Assist Device 1 EACH MC (19:40)
== END 2022-02-12 19:39 | disposition home or self-care (01) ==
PROVIDERS: Emergency Provider Physician Assistant; PCP Nurse Practitioner
DX: J20.9 Acute bronchitis, unspecified (principal); Z86.16 Personal history of COVID-19; Z28.310 Unvaccinated for COVID-19
CPT/HCPCS: 99283; 71046; 99284; J7512; J7620

== ENCOUNTER 2022-03-20 11:22 | Emergency (ER) | payer SELFPAY ==
[2022-03-20 11:28] VITALS: BP 130/96; PULSE 74; RESP 17; TEMP 36.7; O2SAT 99
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
== END 2022-03-20 13:01 | disposition home or self-care (01) ==
PROVIDERS: Emergency Provider Physician Assistant; PCP Nurse Practitioner
DX: S09.90XA Unspecified injury of head, initial encounter (principal); W22.8XXA Striking against or struck by other objects, initial encounter
CPT/HCPCS: 99284; 70450

== ENCOUNTER 2022-07-01 02:52 | Outpatient (CLI) | payer BC, SELFPAY ==
[2022-07-04 13:51] LABS: IgA 134 mg/dL (85-499); Interpretation (See Note); Tissue Transglutaminase IgA 2.6 U/mL (<4.0)
== END 2022-07-01 02:53 | disposition home or self-care (01) ==
LOC: LBO 02:53
PROVIDERS: PCP Nurse Practitioner; Referring Provider Nurse Practitioner; Visit Provider Nurse Practitioner
DX: R21 Rash and other nonspecific skin eruption (principal); Z83.79 Family history of other diseases of the digestive system
CPT/HCPCS: 36415; 82784; 83516

== ENCOUNTER 2022-07-15 05:23 | Emergency (ER) | payer BC, SELFPAY ==
[2022-07-15 05:29] VITALS: BP 103/83; PULSE 96; RESP 20; TEMP 36.8
--- NOTE | 2022-07-15 05:30 | DI.CT_ITS ---
Exam(s) CT ABDOMEN PELVIS W EXAM: CT ABDOMEN PELVIS W CLINICAL HISTORY: right sided abdominal pain. TECHNIQUE: Imaging Protocol: Axial computed tomography images with coronal and sagittal reformatted images were created and reviewed CONTRAST MATERIAL: Intravenous: Omnipaque 350 Contrast volume:100 ml Oral: no COMPARISON: CT CT ABDOMEN PELVIS WO from 10/30/2021 FINDINGS: ABDOMEN: Lung Bases: Normal where visualized. Liver: Normal density. No measurable mass. Gallbladder and biliary tract: No radiodense calculus or dilation. Pancreas: Normal density, no abnormal calcifications or inflammatory process. Spleen: Normal. Kidneys: Duplex collecting system left kidney. Scarring lower pole left kidney. No radiodense stone s or obstructive uropathy. No masses seen. Adrenal glands: No masses seen. Abdominal Aorta: Abdominal portion non-dilated. PELVIS: Bladder: No gross wall thickening. No calculi.No focal mass. Bowel: No obstruction or bowel wall thickening. Appendix normal. Peritoneal cavity: No ascites, collection or mesenteric inflammatory response. Bones: Within normal limits for age. Reproductive organs: Within normal limits. Lymph nodes: Unremarkable. Impression: Unremarkable CT scan of the abdomen and pelvis. RADIATION DOSE DELIVERED: 1,149.16mGy.cm Total DLP DATA REPOSITORY: All CT scans at this facility are submitted to the National Radiology Data Registry (NRDR) Dose Index Registry (DIR) with the [employer] (ACR). RADIATION OPTIMIZATION: All CT scans at this facility use at least one of these dose optimization te chniques: automated exposure control; mA and/or kV adjustment per patient size (includes targeted exa ms where dose is matched to clinical indication); or iterative reconstruction.
--- NOTE | 2022-07-15 05:41 | W.ED.GENAD ---
Discharge Plan Disposition Patient Disposition: Home Condition: Stable Discharge Details Chief Complaint: Nausea/Vomit/Diar Clinical Impression: Abdominal pain Primary Care Provider: Vero Thomas ED Provider: Kashif Garcia Home Meds and New Rx's Prescriptions: No Action No Known Home Meds Discharge Instructions Instructions: Abdominal Pain (ED) Additional Instructions: your cat scan was reassuring against appendicitis and other surgical emergencies follow up with your primary care provider within 1 week if you feel more ill, have severe worsening pain or persistent vomiting return to the emergency department Medical Decision Making 27 yo male with no chronic medical problems comes in with right sided abdominal pain and n/v since last night. He states that during the day yesterday he felt well but then developed the symptoms at night. HE denies fevers, chills, dysuria, testicle pain or swelling. He has no chest pain or dyspnea. HE arrives stable speaking in full sentences. He does appear mildly anxious on exam. He localizes the pain to the ruq and rlq and is tender with palpation to these areas, no guaridng or rebound, no left sided tenderness. No testicle pain or swelling. Given location of his pain will obtain cbc, cmp, lipase and ct abdomen to evaluate for possible cholecystitis vs appendicitis pt signed out to oncoming provider pending ct results Differential Diagnosis Differential Diagnosis: appendicitis, cholecystitis, kidney stone HPI General Mode of arrival: ambulatory. Date/Time Provider Initiated Documentation: 07/15/22 05:24. Limitations to Documentation: no limitations. Information obtained by: patient. History of Present Illness 27 year old M presents to the emergency department with the chief complaint of abdominal pain, described as moderate, with intensity rated at 7. Quality is described as sharp, and is localized to the abdomen. Patient reports no radiation. Patient started experiencing this day(s) (1) and it has been constant. No relieving factors improve symptom(s), No exacerbating factors reported . Patient notes nausea/vomiting; denies chest pain, fever/chills and shortness of breath. Patient did receive the following treatments prior to arrival, none Related Data Home Medications Medication Instructions Recorded Confirmed Unknown [No Known Home Meds] 03/20/22 07/15/22 Allergies Allergy/AdvReac Type Severity Reaction Status Date / Time No Known Allergies Allergy Verified 06/24/22 15:02 General Stated Complaint: Nausea/Vomit/Diar URIEL: 3 Review of Systems All systems reviewed & are unremarkable except as noted in HPI and below Constitutional Constitutional: Denies chills, Denies fever(s) and Denies weakness Cardiovascular Cardiovascular: Denies chest pain and Denies dyspnea Respiratory Respiratory: Denies cough and Denies dyspnea Genitourinary Genitourinary: Denies dysuria Musculoskeletal Musculoskeletal: Denies joint swelling Integumentary/Breasts Skin/Breast: Denies rash Neurologic Neurologic: Denies weakness [facility] All Active Problems (Updated 07/15/22 @ 07:33 by Kashif Garcia MD) Abdominal pain (Acute) Enlarged lymph node (Acute) Cat scratch (Acute) ADHD (Acute) Acne vulgaris (Acute) Frontal headache (Acute) Dizziness (Acute) Chest pressure (Acute) Dyspepsia (Acute) Exposure to sexually transmitted disease (STD) (Acute) Tinea versicolor (Acute) Generalized anxiety disorder (Acute) Mood disorder (Acute) Insomnia, persistent (Acute) Testicular pain, left (Acute) Irregular heart beats (Acute) Dyspnea (Chronic) Depression (Chronic) COVID-19 (Acute) Chronic diarrhea (Acute) Lightheadedness (Acute) Frequent PVCs (Acute) Chest pain (Acute) Medical History Ganglion cyst Right wrist Hives Insect bite Pain in right wrist Right testicular torsion Skin rash Torsion of testis, unspecified Surgical History History of orchiectomy (09/2010) Social History Smoking/Tobacco Use Status: Never Second Hand Exposure: Yes Smoking risk assessment performed?: Yes Alcohol Intake: current Alcohol Intake frequency: 0-2 drinks per day Alcohol type: beer Drug use: Rarely Substance use type: does not use Details: Tried a marijuana pen last week but didn't like it. 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 Pets and animals: Yes Pets and animals: cat(s) Sexually active: Yes Do you think of yourself as: straight/heterosexual Current gender identity: male What is your relationship status?: How often do you talk on the phone with friends or family?: never How often do you get together with friends or relatives?: decline to answer Do you belong to any clubs or organized social groups?: no Panel score (0-1 are the most socially isolated patients): 1 Duration: 45-60 minutes/day Frequency: 1-2 times per week Jennifer/Sikhism: Congregational Special jennifer needs: No Seatbelt use: sometimes Helmet use: Yes Helmet use: never Drive 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 ride w/intox 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 Do you feel safe at home: Yes Do you feel safe in your relationship?: Yes Exam Const General: no acute distress Orientation: alert HENMT Head: normal to inspection Ears: external ears normal General nose exam: external nose normal Mouth: moist mucous membranes Eyes General: appearance normal, both eyes and all related structures Neck Neck: normal visual inspection Resp Effort & Inspection: normal respiratory effort and able to speak in complete sentences Auscultation: clear to auscultation bilaterally Cardio Rate: regular rate Heart Sounds: no murmurs GI Palpation: soft and tender Back/Spine/Pelvis Back: no CVA tenderness Skin General skin exam: no rashes or lesions noted Neuro General: patient alert and patient oriented x3 Extrem General: normal to inspection Psych Mental Status: mental status grossly normal Course Vital Signs Vital signs: Vital Signs Temperature 36.8 C 07/15/22 05:29 Pulse 96 H 07/15/22 05:29 Respiratory Rate 20 07/15/22 05:29 Blood Pressure 103/83 07/15/22 05:29 Temperature 36.8 C 07/15/22 05:29 Temperature Source Oral 07/15/22 05:29 Pulse 96 H 07/15/22 05:29 Respiratory Rate 20 07/15/22 05:29 Respiratory Effort Normal 07/15/22 05:35 Blood Pressure 103/83 07/15/22 05:29 Blood Pressure Position Sitting 07/15/22 05:29 Oxygen Delivery Method Room Air 07/15/22 05:29 Oxygen Flow Rate 0 07/15/22 05:29 Pain Level 8 07/15/22 05:29 Sign Out Sign Out Data: Sign Out Comment: right upper and lower abdominal pain, pending ct results Last updated by Kashif Garcia MD at 07/15/22 07:15
[2022-07-15] MEDS: Normal Saline 1,000 ML 1000 ML IV (05:50)
[2022-07-15] MEDS: Ketorolac 15 MG/ML VIAL IVP (05:51)
[2022-07-15] MEDS: Ondansetron 4 MG/2 ML VIAL IVP ×2 (05:51→09:17)
[2022-07-15 05:54] LABS: Abs Immature Grans 0.02 10^3/uL (0.0-0.06); Absolute Basophil Count 0.03 10^3/uL (0.0-0.2); Absolute Eosinophil Count 0.04 10^3/uL (0.0-0.7); Absolute Lymphocyte Count 0.56 10^3/uL (1.2-3.4); Absolute Monocyte Count 0.51 10^3/uL (0.1-0.8); Absolute Neutrophil Count 9.24 10^3/uL (1.2-6.7); Basophils % 0.3; Eosinophils % 0.4; HGB 17.4 g/dL (13.5-17.5); Immature Grans % 0.2; Lymphocytes % 5.4; MCH 28.1 pg (27.0-33.0); MCHC 34.8 % (32.0-36.0); MCV 81 fL (80-95); MPV 10.5 fL (8.0-11.0); Monocytes % 4.9; Neutrophils % 88.8; Platelet Count 243 10^3/uL (130-400); RDW 12.7 % (11.8-14.1); RDW-SD 36.4 fL
[2022-07-15 06:07] LABS: Lipase 17 U/L (16-77); Magnesium 1.9 mg/dL (1.8-2.4)
[2022-07-15 06:18] LABS: ALT 22 U/L (16-63); AST 24 U/L (15-37); Albumin 4.8 g/dL (3.4-5.0); Alkaline Phosphatase 102 U/L (46-116); Anion Gap 11.3 mmol/L (3-11); BUN 19 mg/dL (7-18); Bilirubin, Total 1.8 mg/dL (0.2-1.0); CO2 24.7 mmol/L (21.0-32.0); Calcium 9.8 mg/dL (8.5-10.1); Chloride 101 mmol/L (98-107); Estimated GFR 107.12 (mL/min/1.73m2); Glucose 127 mg/dL (74-106); Potassium 4.3 mmol/L (3.5-5.1); Sodium 137 mmol/L (136-145); Total Protein 7.7 g/dL (6.4-8.2)
[2022-07-15] MEDS: Omnipaque 350 MG/ML 100 ML BTL IJ (06:52)
[2022-07-15] MEDS: Normal Saline - Diluent 50 ML VIAL IJ (06:58)
[2022-07-15] MEDS: Normal Saline Flush 10 ML SYR IVP (06:58)
--- NOTE | 2022-07-15 07:36 | DI.VRAD_ITS ---
PROCEDURE INFORMATION: Exam: CT Abdomen And Pelvis With Contrast Exam date and time: 07/15/2022 6:51 AM Age: 27 years old Clinical indication: Abdominal pain; Localized; Patient HX: Right sided abd pain TECHNIQUE: Imaging protocol: Computed tomography of the abdomen and pelvis with contrast. Radiation optimization: All CT scans at this facility use at least one of these dose optimization techniques: automated exposure control; mA and/or kV adjustment per patient size (includes targeted exams where dose is matched to clinical indication); or iterative reconstruction. Contrast material: OMNIPAQUE 350; Contrast volume: 100 ml; Contrast route: INTRAVENOUS (IV); COMPARISON: CT ABDOMEN PELVIS WO 10/30/2021 7:42 PM FINDINGS: Lungs: Minimal dependent hypoventilatory changes in both lower lobes. Lung bases are otherwise clear. No pleural effusions. Liver: Unremarkable. Gallbladder and bile ducts: The gallbladder is distended, which is a nonspecific finding. This might be physiologic, i.e. due to fasting. There are no calcified gallstones. There is no intrahepatic or extrahepatic biliary ductal dilation. Pancreas: Unremarkable. Spleen: Unremarkable. The spleen is normal in size. Adrenal glands: Unremarkable. Kidneys and ureters: The left renal collecting system is duplicated. There is no hydronephrosis or hydroureter. There is cortical thinning in the left kidney, most pronounced in the lower pole. No suspicious renal masses. Stomach and bowel: The stomach is nondilated. The small and large bowel are normal in caliber. No mural thickening or other inflammatory changes are noted in the bowel. The terminal ileum is unremarkable. Appendix: A nondilated appendix is identified. Intraperitoneal space: Unremarkable. No ascites, fluid collection, or pneumoperitoneum. Retroperitoneal space: Unremarkable. No retroperitoneal collection or mass. Vasculature: Unremarkable. The abdominal aorta is normal in caliber. Lymph nodes: No pathologically enlarged lymph nodes. Urinary bladder: Unremarkable. Reproductive: Unremarkable as visualized. Bones/joints: No suspicious osseous lesions. Soft tissues: Unremarkable. IMPRESSION: No acute abnormality in the abdomen or pelvis. No evidence of an inflammatory or obstructive process. Dictated and Authenticated by: Gabriela Saucedo MD. Ordering:PRICILA Rowland MD
--- NOTE | 2022-07-15 08:15 | ED.PROG_ITS ---
Date of service: 07/15/22 Time of Service: 08:15 Medical Decision Making Patient was signed out to me my colleague Dr. Kashif Garcia. Please refer to his HPI, physical exam, assessment and plan. We are pending CT scan results at time of signout. CT results have returned, no evidence of acute process per radiology. Gallbladder is slightly distended, this is likely from fasting as he has not had anything to eat since last night. Patient's laboratory work-up including urinalysis is notably benign and stable. Patient has been rehydrated with a liter of normal saline and is notably stable. Repeat physical exam demonstrates no signs of an acute surgical abdomen whatsoever. No pain or tenderness at [facility] urney's point, negative Izaguirre sign. Patient still does describe some abdominal pain, but he is notably comfortable in the bed, and showing no signs of acute distress whatsoever. I suspect his symptoms are likely secondary to mild gastroenteritis. No clinical evidence of acute appendicitis, mesenteric ischemia, cholecystitis, or AAA. We will give Bentyl for home use, Zofran, give a GI cocktail and Protonix. Patient stable for discharge. All questions answered. He did request a work note. Discussed red flags for which to return. I have extensively reviewed the treatment plan and discharge instructions with the patient. I have addressed all patient concerns at this time. The patient was made aware of what symptoms to monitor for that would warrant a return to the emergency department. Discussed the plan with the patient, they demonstrate verbal understanding and agreement with our assessment and plan at this time. The documentation in this chart was dictated using [employer] dictation software. Please excuse any dictation errors. FINDINGS: Lungs: Minimal dependent hypoventilatory changes in both lower lobes. Lung bases are otherwise clear. No pleural effusions. Liver: Unremarkable. Gallbladder and bile ducts: The gallbladder is distended, which is a nonspecific finding. This might be physiologic, i.e. due to fasting. There are no calcified gallstones. There is no intrahepatic or extrahepatic biliary ductal dilation. Pancreas: Unremarkable. Spleen: Unremarkable. The spleen is normal in size. Adrenal glands: Unremarkable. Kidneys and ureters: The left renal collecting system is duplicated. There is no hydronephrosis or hydroureter. There is cortical thinning in the left kidney, most pronounced in the lower pole. No suspicious renal masses. Stomach and bowel: The stomach is nondilated. The small and large bowel are normal in caliber. No mural thickening or other inflammatory changes are noted in the bowel. The terminal ileum is unremarkable. Appendix: A nondilated appendix is identified. Intraperitoneal space: Unremarkable. No ascites, fluid collection, or pneumoperitoneum. Retroperitoneal space: Unremarkable. No retroperitoneal collection or mass. Vasculature: Unremarkable. The abdominal aorta is normal in caliber. Lymph nodes: No pathologically enlarged lymph nodes. Urinary bladder: Unremarkable. Reproductive: Unremarkable as visualized. Bones/joints: No suspicious osseous lesions. Soft tissues: Unremarkable. IMPRESSION: No acute abnormality in the abdomen or pelvis. No evidence of an inflammatory or obstructive process. Thank you for allowing us to participate in the care of your patient. Dictated and Authenticated by: Gabriela Saucedo MD 07/15/2022 7:35 AM Eastern Time ([place] & [place]) Sign Out Sign Out Data: Sign Out Comment: right upper and lower abdominal pain, pending ct results Last updated by Kashif Garcia MD at 07/15/22 07:15 Discharge Plan Disposition Patient Disposition: Home Condition: Stable Discharge Details Clinical Impression: Abdominal pain, Nausea and vomiting Primary Care Provider: Vero Thomas ED Provider: Wojciech Ladd Home Meds and New Rx's Prescriptions: No Action No Known Home Meds Discharge Instructions Instructions: Abdominal Pain (ED) Additional Instructions: At this time your laboratory work-up has returned and is very reassuring. There is no evidence of appendicitis, gallbladder infection, or other significant acute abnormality. I suspect your symptoms are secondary to a mild virus that is causing gastroenteritis. Please take the Zofran as needed for nausea. I suspect your symptoms will improve over the next 12 to 20 hours. Please avoid any greasy foods, tomato- based products or spicy foods. For the next 12 hours stick solely to small frequent sips of liquid. You can then gradually and slowly transition to small bites of crackers. If you notice any worsening of your symptoms, or any new symptoms such as vomiting, diarrhea, fever, chills, shortness of breath, chest pain, numbness, weakness, or fainting , please return immediately to the emergency department for reevaluation. Please follow up with your primary care provider as soon as possible for reassessment and reevaluation. As always, it was a pleasure participating in your medical care today. Stand Alone Forms: Work Release Referrals: Vero Thomas NP [Primary Care Provider] -
[2022-07-15 08:56] LABS: Bilirubin Negative (Negative); Blood Negative (Negative); Clarity Clear (Clear); Glucose Negative (Negative); Ketones 40 mg/dL (Negative); Leukocyte Esterase Negative (Negative); Nitrite Negative (Negative); Urobilinogen 0.2 EU/dL (Up TO 0.2)
[2022-07-15 09:05] LABS: WBC 0-2 HPF (0-5)
[2022-07-15 09:06] LABS: Bacteria Rare HPF (Negative); C & S Indicated? No; Casts Negative LPF (Negative); Crystals Negative HPF (Negative); Epithelial Cells Rare HPF (Negative); Mucus Heavy (Negative); RBC 0-2 HPF (0-2)
[2022-07-15] MEDS: Pantoprazole 40 MG VIAL IVP (09:17)
[2022-07-15] MEDS: Dicyclomine 20 MG TAB PO (09:17)
[2022-07-15] MEDS: Ondansetron O.D.T. 4 MG TABEF, 3 TABS/BTL PO (09:29)
[2022-07-15 09:30] VITALS: BP 112/75; PULSE 72; RESP 18; O2SAT 99
== END 2022-07-15 09:27 | disposition home or self-care (01) ==
PROVIDERS: Emergency Medicine; Emergency Provider Student in an Organized Health Care Education/Training Program; PCP Nurse Practitioner
DX: R10.11 Right upper quadrant pain (principal); R10.31 Right lower quadrant pain; R11.2 Nausea with vomiting, unspecified; Z86.16 Personal history of COVID-19
CPT/HCPCS: 80053; 83690; 96361; 96374; 96375; 96376; 99285; 74177; 81003; 81015; 83735; 85025; 99284; J1885; J2405; J3490

== ENCOUNTER 2022-08-11 07:15 | Emergency (ER) | payer BC, SELFPAY ==
--- NOTE | 2022-08-11 07:15 | RT.EKG_ITS ---
APPROVED REPORT Exam: Resting ECG Reason for Exam: chest pains Patient Location: E HR:66 bpm ECG Measurements Heart Rate 66 AXIS ID 149 P 3 QRSd 91 QRS 33 QT 372 T -13 QTc 390 Conclusion Sinus rhythm...normal P axis, V-rate 60- 99 Physician: no stemi, inverted t wave in lead III
[2022-08-11 07:29] VITALS: BP 140/91; PULSE 74; RESP 16; TEMP 36.8; O2SAT 98
[2022-08-11 07:42] VITALS: RESP 20
--- NOTE | 2022-08-11 08:33 | W.ED.GENAD ---
Discharge Plan Disposition Patient Disposition: Home Discharge Details Chief Complaint: Chest Pain Clinical Impression: Chest pain Primary Care Provider: Vero Thomas ED Provider: Efrem Burgess Home Meds and New Rx's Prescriptions: No Action No Known Home Meds Discharge Instructions Instructions: Chest Pain (ED) Additional Instructions: Please follow-up with [facility] cardiology as scheduled. Medical Decision Making 27-year-old male history of intermittent chest pain over the past several weeks to months, nonexertional, worse with movement of upper body. Scheduled to follow-up with [facility] cardiology in the coming weeks. EKG nonischemic normal sinus rhythm. No evidence of HOCM, WPW, Brugada, long QTc or arrhythmogenic right ventricular dysplasia. No thromboembolic risk factors. Normoxic normotensive. Consider musculoskeletal versus pleurisy versus costochondritis versus anxiety lower suspicion for ACS PE or aortic pathology. Given normal EKG and close follow-up with cardiology patient will be discharged home HPI General Date/Time Provider Initiated Documentation: 08/11/22 08:08. HPI Narrative: 27-year-old male history of intermittent chest pain over the past several weeks to months, scheduled for cardiac evaluation at [facility] within the coming weeks. Presents with intermittent anterior chest pain worse with movement of upper body. No presyncope or syncope. No history of premature cardiac in the family. No history of thromboembolic disease. Related Data Home Medications Medication Instructions Recorded Confirmed Unknown [No Known Home Meds] 03/20/22 08/11/22 Allergies Allergy/AdvReac Type Severity Reaction Status Date / Time No Known Allergies Allergy Verified 08/11/22 07:33 General Stated Complaint: Chest Pain URIEL: 3 Review of Systems Narrative: Review of Systems Constitutional: negative Eyes: negative ENT: negative Cardiovascular: Chest pain Respiratory: negative Gastrointestinal: negative : negative Musculoskeletal: negative Skin: negative Neurologic: negative Psych: negative PFSH All Active Problems (Updated 08/11/22 @ 08:38 by Efrem Burgess MD) Chest pain (Acute) Abdominal pain (Acute) Nausea and vomiting (Acute) Enlarged lymph node (Acute) Cat scratch (Acute) ADHD (Acute) Acne vulgaris (Acute) Frontal headache (Acute) Dizziness (Acute) Chest pressure (Acute) Dyspepsia (Acute) Exposure to sexually transmitted disease (STD) (Acute) Tinea versicolor (Acute) Generalized anxiety disorder (Acute) Mood disorder (Acute) Insomnia, persistent (Acute) Testicular pain, left (Acute) Irregular heart beats (Acute) Dyspnea (Chronic) Depression (Chronic) COVID-19 (Acute) Chronic diarrhea (Acute) Lightheadedness (Acute) 07/22/22 Cardiology Frequent PVCs (Acute) Chest pain (Acute) Medical History Ganglion cyst Right wrist Hives Insect bite Pain in right wrist Right testicular torsion Skin rash Torsion of testis, unspecified Surgical History History of orchiectomy (09/2010) Social History Smoking/Tobacco Use Status: Never Second Hand Exposure: Yes Smoking risk assessment performed?: Yes Alcohol Intake: current Alcohol Intake frequency: 0-2 drinks per day Alcohol type: beer Drug use: Rarely Substance use type: does not use Details: Tried a marijuana pen last week but didn't like it. 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 Pets and animals: Yes Pets and animals: cat(s) Sexually active: Yes Do you think of yourself as: straight/heterosexual Current gender identity: male What is your relationship status?: How often do you talk on the phone with friends or family?: never How often do you get together with friends or relatives?: decline to answer Do you belong to any clubs or organized social groups?: no Panel score (0-1 are the most socially isolated patients): 1 Duration: 45-60 minutes/day Frequency: 1-2 times per week Jennifer/Mandaen: Religious Special jennifer needs: No Seatbelt use: sometimes Helmet use: Yes Helmet use: never Drive intox or ride w/intox patrol driver: No Do you feel safe at home: Yes Do you feel safe in your relationship?: Yes Exam Narrative Exam Narrative: Physical Examination General: alert, awake, cooperative, resting comfortably, no acute distress HEENT: normocephalic, atraumatic; PERRL, EOM intact, conjunctiva normal; no nasal discharge; moist mucous membranes, oral and pharyngeal mucosa normal, tolerating secretions Neck: supple, trachea midline; full ROM Chest: normal to inspection Respiratory: normal respiratory effort, speaking in full sentences, clear to auscultation, no wheezing, rales or rhonchi Cardiac: regular rate, regular rhythm, S1S2 intact, no murmurs rubs or gallops GI: abdomen soft, non-tender, non-distended; no palpable mass or hepatosplenomegaly Skin: no lesions, rashes or trauma appreciated Neuro: AAOx3, normal speech, moving all extremities Psych: Appropriate mood and affect Course Vital Signs Vital signs: Vital Signs Temperature 36.8 C 08/11/22 07:29 Pulse 74 08/11/22 07:29 Respiratory Rate 16 08/11/22 07:29 Blood Pressure 140/91 H 08/11/22 07:29 Pulse Oximetry 98 08/11/22 07:29 Temperature 36.8 C 08/11/22 07:29 Temperature Source Skin 08/11/22 07:29 Pulse 74 08/11/22 07:29 Respiratory Rate 20 08/11/22 07:42 Respiratory Effort Normal 08/11/22 07:42 Respiratory Depth Normal 08/11/22 07:42 Respiratory Pattern Normal 08/11/22 07:42 Blood Pressure 140/91 H 08/11/22 07:29 Blood Pressure Position Sitting 08/11/22 07:29 Pulse Oximetry 98 08/11/22 07:29 Oxygen Delivery Method Room Air 08/11/22 07:29 Oxygen Flow Rate 0 08/11/22 07:29
[2022-08-11] MEDS: Ketorolac 15 MG/ML VIAL IVP (08:40)
== END 2022-08-11 09:08 | disposition home or self-care (01) ==
PROVIDERS: Emergency Provider Emergency Medicine; PCP Nurse Practitioner
DX: R07.89 Other chest pain (principal)
CPT/HCPCS: 36415; 93005; 96374; 99284; 93010; J1885

== ENCOUNTER 2023-11-23 03:34 | Emergency (ER) | payer BC, SELFPAY ==
[2023-11-23 03:37] VITALS: BP 168/98; PULSE 63; RESP 18; TEMP 37; O2SAT 97
[2023-11-23 03:40] VITALS: RESP 18
[2023-11-23] MEDS: diphenhydrAMINE 25 MG CAP PO (04:09)
[2023-11-23] MEDS: Ketorolac 15 MG/ML VIAL IM (04:09)
--- NOTE | 2023-11-23 04:30 | ED.GENADUL_ITS ---
Discharge Plan Disposition Patient Disposition: Home Condition: Good Discharge Details Clinical Impression: Acute sinusitis Primary Care Provider: Vero Thomas ED Provider: Demetrice Cobian Home Meds and New Rx's Prescriptions: No Action No Known Home Meds Discharge Instructions Instructions: Sinusitis, Adult ED Referrals: Vero Thomas NP [Primary Care Provider] - [facility] General Mode of arrival: ambulatory . Date/Time Provider Initiated Documentation: 11/23/23 03:52 . Limitations to Documentation: no limitations . Information obtained by: patient . HPI Narrative: 28yo previously healthy male presenting for sinus pain. ~10 day ago developed URI symptoms, cough, nasal congestion, rhinnorhea, sore throat. These persist have but have somewhat improved. For the past 4-5 days has had right sided sinus pain and pressure. Has tried Afrin, dayquil, and excedrin with miinimal improvement. No fevers or difficulty breathing. No difficultly swallowing. He is otherwise in his usual state of health. Related Data Home Medications Medication Instructions Recorded Confirmed Unknown [No Known Home Meds] 11/23/23 11/23/23 Allergies Allergy/AdvReac Type Severity Reaction Status Date / Time No Known Allergies Allergy Verified 11/23/23 03:47 General Stated Complaint: GenMedical URIEL: 4 Review of Systems Narrative: see HPI Exam Narrative Exam Narrative: General: Alert, well appearing, well nourished, in no acute distress. Head: Normocephalic, atraumatic Neck: Trachea midline, ?Neck supple. Face: Right maxillary sinus TTP, otherwise no facial tenderness. ENT: ?MMM.? No oropharygeal lesions or exudate. TM's clear. Cardiac: ?RRR, no murmurs appreciated Resp: No respiratory distress. CTAB. Abd: ?Soft, non-distended, nontender Extremities: ?No deformities.? No peripheral edema. Neurologic: GCS 15. ? Moves all extremities freely against gravity Course Vital Signs Vital signs: Vital Signs Temperature 37.0 C 11/23/23 03:37 Pulse 63 11/23/23 03:37 Respiratory Rate 18 11/23/23 03:37 Blood Pressure 168/98 H 11/23/23 03:37 Pulse Oximetry 97 11/23/23 03:37 Temperature 37.0 C 11/23/23 03:37 Pulse 63 11/23/23 03:37 Respiratory Rate 18 11/23/23 03:40 Respiratory Effort Normal 11/23/23 03:40 Respiratory Depth Normal 11/23/23 03:40 Respiratory Pattern Normal 11/23/23 03:40 Blood Pressure 168/98 H 11/23/23 03:37 Blood Pressure Position Sitting 11/23/23 03:37 Pulse Oximetry 97 11/23/23 03:37 Oxygen Delivery Method Room Air 11/23/23 03:37 Oxygen Flow Rate 0 11/23/23 03:37 Medical Decision Making 28yo previously healthy male presenting for sinus pain. ~10 day ago developed URI symptoms, cough, nasal congestion, rhinnorhea, sore throat. For the past 4- 5 days has had right sided sinus pain and pressure. No fevers. Vital signs reassuring on arrival. On exam he has tenderness to palpation over right maxillary sinus. No respiratory distress. Not septic. Not concerning for periorbital cellulitis. Consistent with viral rhinosinusitis; would not treat with antibiotics at this time. No indication for labs or CT imaging. Will give toradol and Benadryl here, advised regarding symptomatic treatment at home. Respiratory viral swab negative. Discharged home; discharge instructions and return precuations were reviewed with patient who verbalized understanding. All questions were answered and he is in full agreement with the plan. Quality:SDOH Health Related Social Needs: No Data to Display PFSH All Active Problems (Updated 11/23/23 @ 04:37 by Demetrice Cobian MD) Acute sinusitis (Acute) Enlarged lymph node (Acute) Cat scratch (Acute) ADHD (Acute) Acne vulgaris (Acute) Frontal headache (Acute) Dizziness (Acute) Chest pressure (Acute) Dyspepsia (Acute) Exposure to sexually transmitted disease (STD) (Acute) Tinea versicolor (Acute) Generalized anxiety disorder (Acute) Mood disorder (Acute) Insomnia, persistent (Acute) Testicular pain, left (Acute) Irregular heart beats (Acute) Dyspnea (Chronic) Depression (Chronic) COVID-19 (Acute) Chronic diarrhea (Acute) Lightheadedness (Acute) 07/22/22 Cardiology Frequent PVCs (Acute) Chest pain (Acute) Medical History Ganglion cyst Right wrist Hives Insect bite Pain in right wrist Right testicular torsion Skin rash Torsion of testis, unspecified Surgical History History of orchiectomy (09/2010) Social History Smoking/Tobacco Use Status: Never Second Hand Exposure: Yes Smoking risk assessment performed?: Yes Alcohol Intake: current Alcohol Intake frequency: 0-2 drinks per day Alcohol type: beer Drug use: Rarely Substance use type: does not use Adopted: No Caregiver/Support person: No Foster care: No Household members: spouse and children Number of Children: 3 number of grandchildren: 0 Communication Needs: None Education Level: high school Do you need help understanding health information?: Never 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 Pets and animals: Yes Pets and animals: cat(s) Sexually active: Yes Do you think of yourself as: straight/heterosexual Current gender identity: male What is your relationship status?: How often do you talk on the phone with friends or family?: never How often do you get together with friends or relatives?: decline to answer Do you belong to any clubs or organized social groups?: no Panel score (0-1 are the most socially isolated patients): 1 Duration: 45-60 minutes/day Frequency: 1-2 times per week Jennifer/Jew: Sikh Special jennifer needs: No Seatbelt use: sometimes Helmet use: Yes Helmet use: never Drive intox or ride w/intox auto [place]ula[place] driver: No Do you feel safe at home: Yes Do you feel safe in your relationship?: Yes
[2023-11-23 04:35] LABS: COVID-19 PCR Negative (Negative); Influenza A PCR Negative (Negative); Influenza B PCR Negative (Negative); RSV PCR Negative (Negative)
[2023-11-23 04:47] LABS: Source Nasopharynx
== END 2023-11-23 04:52 | disposition home or self-care (01) ==
LOC: ER 05:22
PROVIDERS: Emergency Provider Student in an Organized Health Care Education/Training Program; PCP Nurse Practitioner
DX: J01.00 Acute maxillary sinusitis, unspecified (principal); H92.01 Otalgia, right ear
CPT/HCPCS: 87637; 96372; 99284; 99283; J1885

== ENCOUNTER 2024-12-27 14:01 | Outpatient (CLI) | payer BC, SELFPAY ==
--- NOTE | 2024-12-27 | DI.RAD_ITS ---
Exam(s) XR CHEST 2V PA LATERAL EXAM: XR CHEST 2V PA LATERAL CLINICAL HISTORY: COUGH, R05.9. TECHNIQUE: 2D digital imaging was performed. COMPARISON: CR,XR XR CHEST 2V PA LATERAL from 02/12/2022 FINDINGS: 2 views: Heart size is normal. The mediastinum is not widened. Lungs are clear. No infiltrates nor pleural effusions. IMPRESSION: No acute pulmonary findings. DATA REPOSITORY: RADIATION DOSE DELIVERED:
== END 2024-12-27 14:21 ==
LOC: DI 14:02
PROVIDERS: PCP Nurse Practitioner; Visit Provider Physician Assistant Medical
DX: R05.9 Cough, unspecified (principal)
CPT/HCPCS: 71046